=== PATIENT | male | born 1955 | race Caucasian/White ===

== ENCOUNTER → 2016-09-09 | Outpatient (CLI) | payer BC ==
[~2016-09-09] MED LIST: ALLO300T2 PO; ALPR-411 PO; AMOX1TAB43 PO; AZIT250T PO; BUDE0.253 NEB; BUDE1SUS NEB; CMP10 PO; CYM20 PO; DILT120C67 PO; DILT120C68 PO; DULO-24 PO; DXM/4 PO; FRS/40 PO; FURO-85 PO; GABA-113 PO; GABA1CAP4 PO; GEMC1INJ IV; INSDGIPEN SC; INSU100I SQ; IPRASOL4 INH; LCTX PO; LEVO-18 PO; LSX20 PO; LSX40 PO; MCRK20 PO; METO50TA16 PO; METO50TA17 PO; METO5TAB2 PO; MGNO400 PO; MULT-190 PO; NLSI SC; OMG3 PO; ONDA-63 PO; ONDA4TAB46 PO; OPTIRAY 320 IV PRN; OXGN; OXYC1TAB3 PO; PRED10TA PO; PRED20TA PO; RIVA1TAB4 PO; RTXI100 IV; RXC5 PO; UMEC1AER INH; VANC5CAP PO; XRL20 PO; [UNRECOGNIZED DRUG - CODE] IV
--- NOTE | 2016-09-09 12:10 | DIAGNOSTIC IMAGING REPORT ---
CT SCAN OF THE CHEST, ABDOMEN, AND PELVIS WITH IV CONTRAST CLINICAL HISTORY: Lymphoma. COMPARISON STUDY: CT scan of the chest, abdomen, and pelvis dated 06/15/2016. PET/CT dated 12/08/2015. TECHNIQUE: Following the IV administration of 120 of Optiray 320, CT scan of the chest, abdomen, and pelvis was performed from the thoracic inlet to the proximal femora. Images are reviewed in the axial, sagittal, and coronal planes. IV contrast was administered without complication. Automated dose control exposure was utilized. The examination is degraded by large body habitus, and by streak artifact from the body wall abutting the CT gantry. CT DOSE: 4413.52 mGy.cm FINDINGS: CHEST: Thyroid: Atrophic. Thoracic aorta: There is mild atherosclerotic calcification of the thoracic aorta, which is normal in caliber and demonstrates standard 3-vessel arch anatomy. No dissection is seen. Pulmonary vasculature: The main pulmonary arteries appear mildly enlarged suggesting pulmonary artery hypertension. There are no filling defects identified in the central pulmonary vessels to indicate pulmonary was. Note that this examination was not protocoled for evaluation of the pulmonary arteries. Heart: The heart is enlarged and there is a small to moderate pericardial effusion. There is lipomatous hypertrophy of the interatrial septum. The coronary arteries are densely calcified. Lungs and pleural spaces: Emphysema is noted. There is a small volume of loculated fluid in the posterior right lower lobe seen on axial image #201. This measures approximately 6 x 2 cm and there are surrounding scarring/fibrosis. No additional foci of consolidation are identified. Scattered calcified granulomas are observed. Small metallic foreign bodies are present in the left lung. An 8 mm pleural-based nodule in the left lower lobe on image #147 is unchanged, as is a 9 mm nodular density in the right upper lobe seen on image #140 and a 6 mm left upper lobe nodule on image #120. No new pulmonary nodules are identified. The trachea and central airways are clear. Mediastinum: There are scattered subcentimeter mediastinal lymph nodes. These are not pathologically enlarged by size criteria end are similar in appearance to 06/15/2016 examination. Shanna: Mildly enlarged right hilar nodes are identified. The largest is seen on image #129 measures 1.7 cm in short axis. Prominent left axillary nodes measure up to 1.1 cm in short axis as seen on image #144. These are similar to previous. Axillae: There is enlarged right axillary lymph node seen on image #87. This measures 2.3 x 1.8 cm. This is new from 06/15/2016. A presumed seroma in the left axilla on image #77 is unchanged and measures 3.6 x 3.1 cm. No left axillary adenopathy is identified. Bony thorax: The skeletal structures are osteopenic. There are healed left-sided rib fractures. No lytic or blastic lesions are identified. Soft tissues: Numerous metallic foreign bodies are identified in the left chest wall and the left back. ABDOMEN AND PELVIS: Liver: Evaluation of the liver is degraded by streak artifact. The contrast-enhanced liver is enlarged, measuring 19.7 cm in length. The liver demonstrates diffusely diminished attenuation consistent with hepatic steatosis. There is no intrahepatic or ductal dilatation. The hepatic veins and portal veins are patent. Gallbladder: Unremarkable. Spleen: The spleen is enlarged, measuring 16 cm in length. Metallic foreign bodies are noted in the spleen and the surrounding left upper quadrant soft tissues. There are small calcified splenic granulomas. Pancreas: Unremarkable. Adrenal glands: A 2.8 cm indeterminant right adrenal nodule is unchanged. The left adrenal gland is unremarkable. Kidneys: The contrast enhanced kidneys demonstrate mild cortical atrophy and are without hydronephrosis. The kidneys enhance symmetrically. A small metallic foreign body is noted in the left kidney. Abdominal vasculature: The abdominal aorta is normal in course and caliber noting moderate to advanced atherosclerotic calcification. Stomach and bowel: There is a tiny hiatal hernia. The stomach and duodenum otherwise normal in configuration. The small bowel and colon are normal in course and caliber. There is moderate sigmoid diverticulosis without CT evidence of acute diverticulitis. Colonic fecal retention is observed. The appendix is well-visualized and normal. Peritoneum: There is no intraperitoneal free air or abdominal ascites. Lymphadenopathy: Mildly enlarged retroperitoneal lymph nodes are unchanged from previous. An aortocaval node on image #224 measures 1.5 cm in short axis (previously measured 1.4 cm in short axis). An enlarged right pelvic sidewall lymph node on image #411 is unchanged and measures 3.2 x 2.0 cm (previously measured 3.0 x 2.2 cm). A left external iliac chain lymph node image #420 is unchanged, measuring 2.3 x 1.5 cm. There is no upper abdominal or mesenteric lymphadenopathy. An enlarged right inguinal lymph node is new from 06/15/2016 and measures 1.8 x 2.4 cm. Pelvic viscera: The bladder, prostate, and seminal vesicles are normal as visualized. Skeletal structures: The skeletal structures are osteopenic. There is mild lumbosacral spondylosis. No lytic or blastic lesions are seen. IMPRESSION: 1. Progressive right axillary and right inguinal lymphadenopathy as compared to 06/15/2016. 2. Mildly enlarged hilar, retroperitoneal, iliac chain, and right pelvic sidewall lymph nodes are similar in appearance to the 06/15/2016 examination. 3. Splenomegaly. 4. Cardiomegaly noting a small to moderate pericardial effusion. 5. Emphysema. 6. A small volume of loculated fluid with surrounding scarring/fibrosis in the right lower lung is similar to previous. 7. Hepatomegaly and hepatic steatosis. 8. Moderate sigmoid diverticulosis without CT evidence of acute diverticulitis. 9. Numerous small metallic foreign bodies are identified in the left body wall, the left upper quadrant of the abdomen, the left lung, the spleen, and the left kidney. These are similar to previous. 10. Small indeterminant pulmonary and pleural-based nodules measure to 9 mm. These are similar to previous. No new pulmonary nodules are identified. 11. Additional changes as above. Electronically signed by: Philip Gomez M.D. 09/09/2016 12:08 PM Dictated Date/Time: 09/09/2016 11:14 AM
== END | disposition home or self-care (01) ==
LOC: C.CTS 10:36
PROVIDERS: ATTEND Nurse Practitioner Family
DX: C83.30 Diffuse large B-cell lymphoma, unspecified site (principal); R16.1 Splenomegaly, not elsewhere classified; I51.7 Cardiomegaly; J43.9 Emphysema, unspecified; K76.0 Fatty (change of) liver, not elsewhere classified; K57.30 Diverticulosis of large intestine without perforation or abscess without bleeding; R91.8 Other nonspecific abnormal finding of lung field

== ENCOUNTER → 2016-10-01 | Outpatient (CLI) | payer BC ==
[~2016-10-01] MED LIST changes: +MAGN250T8 PO; -OPTIRAY 320 IV PRN; +PROC1TAB5 PO
--- NOTE | 2016-10-01 13:12 | MAMMOGRAPHY REPORT ---
ULTRASOUND OF RIGHT BREAST: 10/01/2016 CLINICAL HISTORY: The patient is scheduled for a surgical biopsy of a right axillary lymph node on . The exam is ordered to evaluate if the lymph node is amenable to needle localization. COMPARISON: CT chest dated 09/09/2016. TECHNIQUE: Real-time ultrasound of the right axilla was performed. FINDINGS: Ultrasound of the axilla demonstrates an abnormally enlarged, morphologically abnormal right axillar y lymph node which measures 2.0 x 1.6 x 1.8 cm. This corresponds with the abnormal lymph node seen on the CT scan. IMPRESSION: Abnormal right axillary lymph node measuring 2.0 cm. As the lymph node is well-seen on ultrasound a nd no large vessel is seen adjacent to the lymph node, the lymph node is likely amenable to ultrasou nd-guided needle localization prior to surgery. The patient was verbally notified of the results. Nhi Caballero M.D. ah/:10/01/2016 11:31:14 Blood Bank Technician: Tsering MILLER(Demarcus)(Rolly), [facility] BI-RADS Code: n/a
== END | disposition home or self-care (01) ==
LOC: C.MAMM 10:33
PROVIDERS: ATTEND Surgery
DX: R59.1 Generalized enlarged lymph nodes (principal)

== ENCOUNTER 2016-10-11 07:35 | Day surgery (SDC) | payer BC ==
[2016-10-05 08:26] VITALS: BMI 51.0
--- NOTE | 2016-10-05 09:06 | PAT Medication Instructions ---
Service Date Oct 05, 2016. Current Home Medication List Alprazolam (Xanax), 0.5-1 MG PO BID PRN for Anxiety Amoxicillin & Pot Clavulanate (Amoxicillin/Clavulanate P), 1 TAB PO BID Azithromycin (Zithromax), 250 MG PO 3XWK Budesonide (Inhalation) (Pulmicort Respules 0.25MG/2ML), 1 VIAL NEB BID Diltiazem Hcl Ext Rel (Tiazac), 240 MG PO QAM Duloxetine HCl (Cymbalta), 1 CAP PO QAM Fish Oil (Fish Oil), 2 CAP PO QAM Furosemide (Lasix), 40 MG PO Q2D Furosemide (Lasix), 60 MG PO Q2D Gabapentin (Neurontin), 300 MG PO QPM Ipratropium-Albuterol (Duoneb), 1 TREATMENT INH QID PRN for COPD Metoprolol Tartrate (Lopressor) (Lopressor), 50 MG PO BID Ocuvite Preservision (Ocuvite Preservision), 1 TAB PO QAM Oxygen (Oxygen), 4 LITER NA CONTINOUS Prednisone Tab (Prednisone), 40 MG PO DAILY PRN for COPD RESCUE KIT Rivaroxaban (Xarelto), 20 MG PO HS Umeclidinium-Vilanterol (Anoro Ellipta 62.5-25 Mcg/INH), 1 PUFF INH QAM Medication Instructions For Your Scheduled Surgery - Continue as directed: Prednisone Tab (Prednisone), 40 MG PO DAILY PRN for COPD RESCUE KIT Amoxicillin & Pot Clavulanate (Amoxicillin/Clavulanate P), 1 TAB PO BID COPD RESCUE KIT Please call if you have a COPD exacerbation prior to the surgery - Hold the following medications per surgeon's instructions: Rivaroxaban (Xarelto), 20 MG PO HS - Stopped already: Fish Oil (Fish Oil), 2 CAP PO QAM - Hold the following medications the morning of surgery: Furosemide (Lasix), 40 MG PO Q2D Furosemide (Lasix), 60 MG PO Q2D Ocuvite Preservision (Ocuvite Preservision), 1 TAB PO QAM - Take the following medications the morning of surgery with a sip of water OTHERWISE NOTHING TO EAT OR DRINK AFTER MIDNIGHT: Albuterol Rescue Inhaler (use if needed; BRING TO HOSPITAL) Alprazolam (Xanax), 0.5-1 MG PO BID PRN for Anxiety Diltiazem Hcl Ext Rel (Tiazac), 240 MG PO QAM Duloxetine HCl (Cymbalta), 1 CAP PO QAM Umeclidinium-Vilanterol (Anoro Ellipta 62.5-25 Mcg/INH), 1 PUFF INH QAM Metoprolol Tartrate (Lopressor) (Lopressor), 50 MG PO BID Budesonide (Inhalation) (Pulmicort Respules 0.25MG/2ML), 1 VIAL NEB BID Ipratropium-Albuterol (Duoneb), 1 TREATMENT INH QID PRN for COPD - Take the following medications as scheduled the night before surgery: Alprazolam (Xanax), 0.5-1 MG PO BID PRN for Anxiety Metoprolol Tartrate (Lopressor) (Lopressor), 50 MG PO BID Gabapentin (Neurontin), 300 MG PO QPM Budesonide (Inhalation) (Pulmicort Respules 0.25MG/2ML), 1 VIAL NEB BID Ipratropium-Albuterol (Duoneb), 1 TREATMENT INH QID PRN for COPD If you have any questions please call us at [phone] or [phone] or [phone]
[~2016-10-11] VITALS: Ht 180.3 cm; Wt 164.0 kg
[~2016-10-11 07:35] MED LIST changes: -ALLO300T2 PO; -AMOX1TAB43 PO; -AZIT250T PO; -BUDE1SUS NEB; +CEFAZOLIN 3000 MG/65 ML D5W IV SCH; -CMP10 PO; -CYM20 PO; -DILT120C67 PO; -DXM/4 PO; -GABA1CAP4 PO; -GEMC1INJ IV; -INSDGIPEN SC; -INSU100I SQ; -IPRASOL4 INH; +LACTATED RINGER'S 1000ML 1,000 ML IV SCH; -LCTX PO; -LEVO-18 PO; -LSX20 PO; -LSX40 PO; -MAGN250T8 PO; -MCRK20 PO; -METO50TA17 PO; -METO5TAB2 PO; -MGNO400 PO; -MULT-190 PO; -NLSI SC; -OMG3 PO; -ONDA-63 PO; -ONDA4TAB46 PO; -OXGN; -OXYC1TAB3 PO; -PRED20TA PO; -PROC1TAB5 PO; -RTXI100 IV; -RXC5 PO; -UMEC1AER INH; -VANC5CAP PO; -XRL20 PO; -[UNRECOGNIZED DRUG - CODE] IV
[2016-10-11] MEDS ORDERED: FLUMAZENIL 0.1 MG/1 ML 10 ML VIAL IV PRN (08:00)
[2016-10-11] MEDS ORDERED: NALOXONE HCL 0.4 MG/1 ML VIAL/CARP IV PRN (08:00)
[2016-10-11] MEDS ORDERED: LABETALOL HCL IV 5 MG/ML 20ML IV PRN (08:00)
[2016-10-11] MEDS ORDERED: PHENYLEPHRINE 100MCG/ML 5ML SYR IV PRN (08:00)
[2016-10-11] MEDS ORDERED: MEPERIDINE HCL 25 MG/ML CARP IV PRN (08:00)
[2016-10-11] MEDS ORDERED: EpHEDrine SULFATE INJ 50 MG/ML AMP IV PRN (08:00)
[2016-10-11] MEDS ORDERED: ATROPINE SULFATE 0.1 MG/ML 5ML SYR IV PRN (08:00)
[2016-10-11] MEDS ORDERED: ONDANSETRON INJ 2 MG/ML 2 ML VIAL IV PRN ×2 (08:00→10:45)
[2016-10-11] MEDS ORDERED: FENTANYL CITRATE INJ 50 MCG/1 ML 2 ML VIAL IV PRN (08:00)
[2016-10-11] MEDS ORDERED: HYDROmorphone INJ 2 MG/ML SYR/VIAL IV PRN (08:00)
[2016-10-11] MEDS ORDERED: MIDAZOLAM HCL 1 MG/ML 2ML VIAL ONE ×2 (08:56)
[2016-10-11 09:11] VITALS: BP 114/58; PULSE 74; TEMP 36.7; O2SAT 98; Ht 180.3 cm; Wt 164.0 kg
[2016-10-11] MEDS ORDERED: FENTANYL CITRATE INJ 50 MCG/1 ML 2 ML VIAL ONE (09:31)
--- NOTE | 2016-10-11 09:34 | History & Physical Bridge Note ---
H&P Re-Evaluation Bridge Note: I have examined the patient, reviewed the History & Physical and in the interval since the performance of the History & Physical I have noted the following changes of clinical significance: No changes noted
[2016-10-11] MEDS ORDERED: SUCCINYLCHOLINE CHLORIDE 20 MG/ML 10 ML VIAL IV ONE (09:35)
[2016-10-11] MEDS ORDERED: LIDOCAINE HCL 2% 2 ML VIAL (20MG/ML) ONE (09:35)
[2016-10-11] MEDS ORDERED: ROCURONIUM BROMIDE 10 MG/ML 5 ML VIAL ONE (09:35)
[2016-10-11] MEDS ORDERED: ONDANSETRON INJ 2 MG/ML 2 ML VIAL ONE (09:35)
[2016-10-11] MEDS ORDERED: ISOSULFAN BLUE 10 MG/ML VIAL 5 ML ONE (09:36)
[2016-10-11] MEDS ORDERED: BUPIVACAINE 0.5 % 5 MG/1 ML MPF 30ML VIAL ONE (09:36)
[2016-10-11] MEDS ORDERED: METHYLENE BLUE 0.5% 10 ML VIAL ONE (09:37)
[2016-10-11] MEDS ORDERED: DEXAMETHASONE SOD INJ 4 MG/ML VIAL ONE (10:18)
--- NOTE | 2016-10-11 10:43 | [facility] Post Operative Brief Note ---
Immediate Operative Summary Operative Date Oct 11, 2016. Pre-Operative Diagnosis Right Lymphadenopathy Post-Operative Diagnosis Right Lymphadenopathy Procedure(s) Performed Right Axillary Lymph Node Biopsy with Needle Localization/ Rt axillary mass Surgeon Dr. Perez Diecast Machine Operator Surgeon(s) Jeremy Ragsdale-sloan Estimated Blood Loss 10 CC Findings 3 cm mass- lymph node Specimens A: Right axillary mass Anesthesia gen Complication(s) None Disposition Recovery Room / PACU
[2016-10-11] MEDS ORDERED: OXYCODONE HCL IR 5 MG TAB (IMMEDIATE RELEASE) PO PRN (10:45)
--- NOTE | 2016-10-11 10:45 | Discharge Instructions ---
Discharge Instructions Date of Service Oct 11, 2016. Visit Reason for Visit: Lymphadenopathy Right Axillary Discharge Discharge Diagnosis / Problem: lymphadenopathy Rt axilla Discharge Goals Goal(s): Decrease discomfort, Improve function, Improve disease control Activity Recommendations Activity Limitations: as noted below Lifting Limitations: no more than 25 pounds (for 2 weeks) Exercise/Sports Limitations: until after follow-up appointment May Resume Sexual Activity: when tolerated Shower/Bathe: tomorrow (may shower- no bath until sutures removed) Driving or Machine Use: resume 1 day after discharge SPECIAL CARE INSTRUCTIONS: * Cover incisions and change daily for comfort/drainage. * May use ibuprofen for pain as tolerated. * Expect some swelling and bruising. Call your doctor if: * Temperature above 101 degrees * Pain not relieved by pain medicine ordered * There is increased drainage or redness from any incision * You have any unanswered questions or concerns [phone]. FOLLOW UP VISIT: If not already scheduled, please call the office for a follow-up visit. for next week- some sutures OFFICE PHONE NUMBER: Dr. Perez Office Anesthesia . Post Anesthesia Instructions: If you have had General Anesthesia or IV Sedation: * Do not drive today. * Resume driving when surgeon permits. * Do not make important decisions or sign legal documents today. * Call surgeon for: 1. Temperature elevations greater than 101 degrees F. 2. Uncontrollable pain. 3. Excessive bleeding. 4. Persistent nausea and vomiting. 5. Medication intolerance (nausea, vomiting or rash). * For nausea and vomiting use only clear liquids such as: tea, soda, bouillon until nausea subsides, then gradually increase diet as tolerated. * If you have any concerns or questions, call your surgeon's office. If physician is unavailable and it is an emergency, call 911 or go to the nearest emergency room. . Diet Recommendations Recommended Home Diet: resume previous diet Procedures Procedures Performed: Right Axillary Lymph Node Biopsy with Needle Localization/ Rt axillary mass Pending Studies Studies pending at discharge: no Medical Emergencies . Who to Call and When: Medical Emergencies: If at any time you feel your situation is an emergency, please call 911 immediately. . Non-Emergent Contact Non-Emergency issues call your: Primary Care Provider, Surgeon . . "Provider Documentation" section prepared by Pop Perez.
[2016-10-11] MEDS ORDERED: OXYC1TAB3 PO (10:47)
--- NOTE | 2016-10-11 11:09 | Anesthesiology Progress Note ---
Anesthesia Post Op Note Date & Time Oct 11, 2016 at 11:08 Vital Signs Pain Intensity: 0 Vital Signs Past 12 Hours Date Time Temp Pulse Resp B/P Pulse Ox O2 Delivery O2 Flow Rate FiO2 10/11/16 10:55 73 20 116/67 94 Mask 10 10/11/16 10:46 36.7 80 20 113/75 95 Mask 10 10/11/16 09:11 36.7 74 22 114/58 98 Nasal Cannula 3.5 Notes Mental Status: alert / awake / arousable, participated in evaluation Pt Amnestic to Procedure: Yes Nausea / Vomiting: adequately controlled Pain: adequately controlled Airway Patency, RR, SpO2: stable & adequate BP & HR: stable & adequate Hydration State: stable & adequate Anesthetic Complications: no major complications apparent The patient did well. He is awake and at his baseline.
[2016-10-11 11:35] VITALS: BP 120/60; PULSE 73; TEMP 36.7; O2SAT 95
[2016-10-11 12:20] VITALS: BP_SYST 118; BP_SYST 130; BP_DIAS 63; BP_DIAS 67; PULSE 75; TEMP 36.8; O2SAT 96
[2016-10-11 12:27] VITALS: BP 118/63; PULSE 75; TEMP 36.8; O2SAT 96
--- NOTE | 2016-10-11 12:46 | MAMMOGRAPHY REPORT ---
NEEDLE LOCALIZATION RIGHT BREAST: 10/11/2016 CLINICAL HISTORY: Abnormal enlarged right axillary lymph node. Patient presents for preoperative lo calization. COMPARISON: Comparison is made to exam dated: 10/01/2016 ultrasound - [facility] PATIENT CONSENT: The risks of the procedure were explained to the patient and informed consent was o btained. The patient denied allergy to lidocaine and also denied eating or drinking anything this m orning that would preclude anesthesia. PROCEDURE DESCRIPTION: Repeat targeted ultrasound was performed in the right axilla to assess for th e enlarged, morphologically abnormal lymph node as seen on prior ultrasound dated 10/01/2016. This is again identified and is amenable to preoperative localization. The skin of the right axilla was cleansed with Betadine. 1% buffered lidocaine without epinephrine was administered as local anesthe rina. A 5 cm Goldsmith II needle and wire combination was inserted into the lymph node and the wire wa s locked in place. The hub of the wire is located at the posterior border of the lymph node and the tip of the needle is within and just proximal to the anterior border of the lymph node. The needle length and were discussed with the operating surgeon prior to surgery. The patient tolerated proce dure well and there was no immediate consultation. He was sent to the operating room in satisfactor y condition. IMPRESSION: NEEDLE LOCALIZATION Status post preoperative needle and wire localization for a morphologically abnormal lymph node in t he right axilla. A specimen radiograph was not obtained. The patient will receive notification of the results from his referring physician. Chitra Minor M.D. ay/:10/11/2016 12:28:27 Pulp And Paper Tester: Michelle GORE)(Rolly), [facility]
--- NOTE | 2016-10-11 21:46 | OPERATIVE REPORT ---
DATE OF OPERATION: 10/11/2016 NAME OF OPERATION: Excision of right axillary mass using needle localization. PREOPERATIVE DIAGNOSIS: Right axillary lymphadenopathy. POSTOPERATIVE DIAGNOSIS: Same. STAFF SURGEON: Dr. Perez. STOCK PREPARER: TENZIN Weston. ANESTHESIA: General. PROCEDURE: The patient was brought in the operating room and placed on the operating table in supine position. He had had a needle placed in the at the breast center in the right axilla. He underwent a general anesthetic and then using 0.5% plain Marcaine, skin and subcutaneous tissue were anesthetized around the needle. Incision was made around the needle carrying dissection down deeply into the axilla, identifying what appeared to be an axillary mass approximately 3 cm in diameter which was suspected to be a lymph node. This was excised from surrounding tissue with the tissue around the lymph node and ligated using 2-0 chromic catgut suture and 2-0 silk suture. At this point, the deep tissue was reapproximated using 2-0 plain catgut suture then the skin reapproximated using 4-0 nylon suture. The mass was sent fresh to the lab. I attest to the content of the Intraoperative Record and any orders documented therein. Any exceptio ns are noted below.
--- NOTE | 2016-10-12 09:21 | MAMMOGRAPHY REPORT ---
SPECIMEN: 10/11/2016 CLINICAL HISTORY: Abnormal right axillary lymph node. Patient presents for preoperative needle and wire localization and surgical excision. Please refer to the report from ultrasound guided needle localization with imaging of the right axil la performed at the same time for full detail. IMPRESSION: SPECIMEN Please refer to the report from ultrasound guided needle localization with imaging of the right axil la performed at the same time for full detail. Chitra Minor M.D. ay/:10/11/2016 08:55:43 Survey Research Manager: Michelle GORE)(M), [facility]
[2016-12-06] MEDS ORDERED: AZIT250T PO (04:15)
[2016-12-06] MEDS ORDERED: OXGN (07:32)
[2016-12-06] MEDS ORDERED: MULT-190 PO (08:26)
[2016-12-06] MEDS ORDERED: UMEC1AER INH (08:26)
[2016-12-06] MEDS ORDERED: OMG3 PO (08:26)
[2016-12-06] MEDS ORDERED: IPRASOL4 INH (13:01)
[2016-12-06] MEDS ORDERED: AMOX1TAB43 PO (14:04)
[2017-04-08] MEDS ORDERED: INSDGIPEN SC (16:03)
[2017-04-08] MEDS ORDERED: MAGN250T8 PO (16:03)
[2017-04-08] MEDS ORDERED: PROC1TAB5 PO (16:03)
== END 2016-10-11 12:34 | disposition home or self-care (01) ==
LOC: C.ACU 07:35
PROVIDERS: ATTEND Surgery
DX: C83.34 Diffuse large B-cell lymphoma, lymph nodes of axilla and upper limb (principal); I48.92 Unspecified atrial flutter; C85.10 Unspecified B-cell lymphoma, unspecified site; J44.9 Chronic obstructive pulmonary disease, unspecified; I95.1 Orthostatic hypotension; G47.30 Sleep apnea, unspecified; F17.200 Nicotine dependence, unspecified, uncomplicated; Z79.899 Other long term (current) drug therapy; Z86.718 Personal history of other venous thrombosis and embolism

== ENCOUNTER 2016-10-28 05:10 | Day surgery (SDC) | payer BC ==
[2016-10-26 12:40] VITALS: BMI 51.0
[~2016-10-28] VITALS: Ht 180.3 cm; Wt 165.7 kg
[~2016-10-28 05:10] MED LIST changes: -CEFAZOLIN 3000 MG/65 ML D5W IV SCH; -LACTATED RINGER'S 1000ML 1,000 ML IV SCH
[2016-10-28 05:48] VITALS: BP 138/71; PULSE 65; TEMP 37; O2SAT 99; Ht 180.3 cm; Wt 165.7 kg
[2016-10-28] MEDS ORDERED: LACTATED RINGER'S 1000ML 1,000 ML IV SCH (06:00)
[2016-10-28] MEDS ORDERED: FENTANYL CITRATE INJ 50 MCG/1 ML 2 ML VIAL ONE (06:58)
[2016-10-28] MEDS ORDERED: MIDAZOLAM HCL 1 MG/ML 2ML VIAL ONE (06:58)
[2016-10-28] MEDS ORDERED: LACTATED RINGER'S 1000ML 1,000 ML IV PRN (07:20)
[2016-10-28] MEDS ORDERED: FENTANYL CITRATE INJ 50 MCG/1 ML 2 ML VIAL IV PRN (07:30)
[2016-10-28] MEDS ORDERED: ONDANSETRON INJ 2 MG/ML 2 ML VIAL IV PRN (07:30)
[2016-10-28] MEDS ORDERED: KETAMINE HCL INJ 50 MG/ML 10 ML VIAL ONE (07:50)
[2016-10-28] MEDS ORDERED: LIDOCAINE 1% (PF) INJ ONE (08:23)
--- NOTE | 2016-10-28 08:40 | Anesthesiology Progress Note ---
Anesthesia Post Op Note Date & Time Oct 28, 2016 at 08:40 Vital Signs Pain Intensity: 0 Vital Signs Past 12 Hours Date Time Temp Pulse Resp B/P Pulse Ox O2 Delivery O2 Flow Rate FiO2 10/28/16 08:34 63 12 10/28/16 08:34 58 12 92 10/28/16 08:33 36.7 56 16 109/65 94 Nasal Cannula 4 10/28/16 08:31 109/65 10/28/16 08:29 56 17 95 10/28/16 08:29 57 17 10/28/16 08:28 58 18 10/28/16 08:28 58 18 96 10/28/16 08:26 90/62 10/28/16 08:23 59 17 10/28/16 08:23 60 17 94 10/28/16 08:21 109/63 10/28/16 08:18 56 18 10/28/16 08:18 56 18 94 10/28/16 08:16 100/58 10/28/16 08:13 56 97/60 94 10/28/16 08:13 36.9 69 16 97/60 95 Nasal Cannula 4 10/28/16 08:13 56 10/28/16 05:48 37 65 20 138/71 99 Nasal Cannula 3.5 Notes Mental Status: alert / awake / arousable, participated in evaluation Pt Amnestic to Procedure: No (recall as expected) Nausea / Vomiting: adequately controlled Pain: adequately controlled Airway Patency, RR, SpO2: stable & adequate BP & HR: stable & adequate Hydration State: stable & adequate Anesthetic Complications: no major complications apparent Pt doing very well.
--- NOTE | 2016-10-28 08:50 | [facility] Operative Report ---
Operative Report Operative Date Oct 28, 2016. Pre-Operative Diagnosis Large B Cell Lymphoma Post-Operative Diagnosis recurrent B-cell lymphoma Procedure(s) Performed bone marrow biopsy and aspirate Surgeon Dr. Amaro Seed Analysis Laboratory Assistant Surgeon(s) Brook Graves Estimated Blood Loss 0ML Findings Marrow pending Specimens All Specimens Handled by Lab Complication(s) None Disposition Recovery Room / PACU Indications Staging for lymphoma Description of Procedure bone marrow biopsy and aspirate Indication Technique Nursing time out procedure was performed per protocol written informed consent document was obtained.Pt was given Dilaudid 1mg and ativan 1mg IV prior to procedure. 1% lidocaine without epinephrine was used for local anesthesia without complications. The patient was prepped and draped in usual sterile fashion placed in the right lateral decubitus position the left posterior superior iliac spine was located without difficulty. 1% lidocaine without epinephrine was used for local anesthesia without complications. Using a standard 11-gauge bone marrow biopsy needle the left posterior-superior iliac spine was entered without difficulty. Excellent spicules were obtained the aspiration sent for standard histopathology , flow cytometry, cytogenetics and molecular studies. The left posterior- superior iliac spine was re-entered with a standard 11-gauge Jamshedi and a bone biopsy or core was obtained. Patient tolerated procedure well. ASSESSMENT AND PLAN Follow up in 2 weeks. I attest to the content of the Intraoperative Record and any orders documented therein. Any exceptions are noted below.
[2016-10-28 09:05] VITALS: BP 107/66; PULSE 60; TEMP 36.6; O2SAT 93
[2016-10-28 09:35] VITALS: BP 98/56; PULSE 63; O2SAT 95
[2016-10-28 10:05] VITALS: BP 104/57; PULSE 59; TEMP 36.6; O2SAT 92
--- NOTE | 2016-10-28 10:05 | Discharge Instructions ---
Discharge Instructions Date of Service Oct 28, 2016. Admission Reason for Admission: Non-Hodgkins Lymphoma Discharge Discharge Diagnosis / Problem: lymphoma staging Discharge Goals Goal(s): Diagnostic testing Activity Recommendations Activity Limitations: resume your previous activity Driving or Machine Use: no limitations none . Instructions / Follow-Up Instructions / Follow-Up follow up in clinic as scheduled Current Hospital Diet Patient's current hospital diet: Discharge Diet Recommended Diet: Regular Diet Fluid Restriction: None Procedures Procedures Performed: Bone Marrow Biopsy and Aspirate Pending Studies Studies pending at discharge: no Medical Emergencies . Who to Call and When: Medical Emergencies: If at any time you feel your situation is an emergency, please call 911 immediately. . Non-Emergent Contact Non-Emergency issues call your: Primary Care Provider Call Non-Emergent contact if: you have a fever, temperature is above 101.5 . "Provider Documentation" section prepared by Frederick Amaro. . VTE Core Measure Inpt VTE Proph given/why not?: Treatment not indicated
[2016-12-06] MEDS ORDERED: AZIT250T PO ×2 (04:15)
[2016-12-06] MEDS ORDERED: OXGN ×2 (07:32)
[2016-12-06] MEDS ORDERED: UMEC1AER INH ×2 (08:26)
[2016-12-06] MEDS ORDERED: MULT-190 PO ×2 (08:26)
[2016-12-06] MEDS ORDERED: OMG3 PO ×2 (08:26)
[2016-12-06] MEDS ORDERED: IPRASOL4 INH ×2 (13:01)
[2016-12-06] MEDS ORDERED: AMOX1TAB43 PO ×2 (14:04)
[2017-04-08] MEDS ORDERED: PROC1TAB5 PO (16:03)
[2017-04-08] MEDS ORDERED: MAGN250T8 PO (16:03)
[2017-04-08] MEDS ORDERED: INSDGIPEN SC (16:03)
== END 2016-10-28 10:20 | disposition home or self-care (01) ==
LOC: C.ACU 05:10
PROVIDERS: ATTEND Internal Medicine Hematology & Oncology
DX: C83.30 Diffuse large B-cell lymphoma, unspecified site (principal); J44.9 Chronic obstructive pulmonary disease, unspecified; I50.9 Heart failure, unspecified; G47.33 Obstructive sleep apnea (adult) (pediatric); I10 Essential (primary) hypertension; E11.9 Type 2 diabetes mellitus without complications; F41.9 Anxiety disorder, unspecified; M19.90 Unspecified osteoarthritis, unspecified site; Z98.52 Vasectomy status; Z98.890 Other specified postprocedural states; E66.01 Morbid (severe) obesity due to excess calories; Z68.43 Body mass index [BMI] 50.0-59.9, adult; Z86.718 Personal history of other venous thrombosis and embolism; Z86.711 Personal history of pulmonary embolism

== ENCOUNTER → 2016-11-03 | Outpatient (CLI) | payer BC ==
[~2016-11-03] MED LIST changes: +AMOX1TAB43 PO; +AZIT250T PO; +BUDE1SUS NEB; +CMP10 PO; +CYM20 PO; +DILT120C67 PO; +DXM/4 PO; +GABA1CAP4 PO; +GEMC1INJ IV; +INSDGIPEN SC; +INSU100I SQ; +IPRASOL4 INH; +LCTX PO; +LEVO-18 PO; +LSX20 PO; +LSX40 PO; +MAGN250T8 PO; +MCRK20 PO; +METO50TA17 PO; +METO5TAB2 PO; +MGNO400 PO; +MULT-190 PO; +OMG3 PO; +ONDA-63 PO; +ONDA4TAB46 PO; +OXGN; +PRED20TA PO; +PROC1TAB5 PO; +RTXI100 IV; +UMEC1AER INH; +VANC5CAP PO; +XRL20 PO; +[UNRECOGNIZED DRUG - CODE] IV
--- NOTE | 2016-11-03 11:28 | DIAGNOSTIC IMAGING REPORT ---
PET/CT CLINICAL HISTORY: Lymphoma. TECHNIQUE: A PET/CT was performed from the skull base through the upper thighs following intravenous injection of 15.69 mCi of F 18 FDG IV. The injection was performed at 8:09 AM on November 03, 2016 and imaging began at 9:15 AM on November 03, 2016. Unenhanced CT was performed for attenuation correction purposes and anatomic localization. COMPARISON STUDY: PET/CT December 08, [address] of the chest, abdomen and pelvis September 09, 2016. FINDINGS: Head and neck: No suspicious FDG uptake is identified within the neck. There is no cervical lymphadenopathy. Chest: A right sided [id number] is in place. A 3.6 cm water attenuation left axillary abnormality is unchanged since prior exams. This is no FDG uptake and suggests a seroma. The enlarged right axillary lymph node shown on CT of September 09, 2016 has likely been resected. Prominent right hilar lymph nodes are noted. These have no significant abnormal FDG uptake. There is no suspicious FDG uptake within the chest. Right lower lobe opacity suggest atelectasis. A 6 mm left upper lobe nodule shown image 66 is unchanged since prior exams. This is likely benign. A 9 mm subpleural left lower lobe nodule shown image 79 is new since PET/CT of December 08, 2015. Groundglass opacities within lungs favor atelectasis. Abdomen and Pelvis: Small para-aortic lymph nodes are either stable or improved since PET/CT of December 08, 2015. These have no significant FDG uptake. Note is made of a 3 x 2 cm right external iliac lymph node which is increased in size since PET/CT of December 08, 2015 when it measured 2.4 x 1.3 cm. This node has moderate FDG uptake with an SUV max of 5. A left external iliac node shown on image 213 has mildly increased in size. It now measures 2.3 x 1.2 cm and has an SUV max of 4. A 2.4 x 1.9 cm right inguinal lymph node has significantly increased in size since PET/CT of December 08, 2015 and now has abnormal FDG uptake with an SUV max of 8. This exam is compromised by body wall contacting the gantry. Numerous metallic radiodensities are unchanged. Musculoskeletal: No suspicious skeletal uptake is identified. IMPRESSION: 1. Interval development of right inguinal and bilateral external iliac FDG avid lymphadenopathy consistent with progression of lymphoma since PET/CT of December 08, 2015. 2. Interval resection of the right axillary lymph node shown on CT of September 09, 2016. 3. 9 mm subpleural left lower lobe nodule which is indeterminate and can be assessed on subsequent exams. Electronically signed by: Ponce Gupta M.D. 11/03/2016 11:27 AM Dictated Date/Time: 11/03/2016 11:03 AM
== END | disposition home or self-care (01) ==
LOC: C.PET 07:49
PROVIDERS: ATTEND Internal Medicine Hematology & Oncology
DX: C83.30 Diffuse large B-cell lymphoma, unspecified site (principal)

== ENCOUNTER → 2016-11-10 | Outpatient (CLI) | payer BC ==
[~2016-11-10] MED LIST changes: +PERFLUTREN LIPID MICROSPHERE (DEFINITY) IV ONE
--- NOTE | 2016-11-10 18:04 | ECHOCARDIOGRAM REPORT ---
*NOTICE TO RECEIVING CONSTITUTION PARTY AGENCY This information is strictly Confidential and protected under [place] law. [place] law prohibits you from making any further disclosure of this information unless further disclosure is expressly permitted by the written consent of the person to whom it pertains or is authorized by law. A general authorization for the release of medical or other information is not sufficient for this purpose. Hospital accepts no responsibility if the information is made available to any other person, INCLUDING THE PATIENT. Interpretation Summary * Name: LE RODRÍGUEZ Study Date: 11/10/2016 01:05 PM * Patient Location: [facility] HR: 58 * : 1955 (M/d/yyyy) Gender: Male Height: 71 in * Age: 61 yrs Ethnicity: CA Weight: 361 lb * Ordering Physician: Brook Graves * Referring Physician: Brook Graves . 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 Normal LV size. Mild concentric LVH. * 2. Normal LV systolic function. LVEF 60-65%. No regional wall motion abnormalities. * 3. RV not well visualized but size and function appears normal. * 4. Aortic valve sclerosis without stenosis. * 5. Compared with prior study on 07/16/2015: No significant changes. Procedure Details * A complete two-dimensional transthoracic echocardiogram was performed (2D, M-mode, Doppler and color flow Doppler). * A contrast injection of Definity was performed to improve assessment of LV function. * Contrast was injected into an intravenous site in the right arm. * One vial of Definity ultrasound contrast was diluted in normal saline to a total volume of 10 ml. A total of '4' ml of solution was administered during imaging. * Lot # [id number] of Definity utilized for procedure. * Expiration date OCT 19. * The attending nurse who injected the contrast agent was Ruby Blackmon RN. Left Ventricle * The left ventricle is grossly normal size. * There is mild concentric left ventricular hypertrophy. * Left ventricular systolic function is normal. * Ejection Fraction = 60-65%. * No regional wall motion abnormalities noted. Right Ventricle * The right ventricle is grossly normal size. * The right ventricle is not well visualized. * The right ventricular systolic function is normal as assessed by tricuspid annular plane systolic excursion (TAPSE) (normal >1.5 cm). Atria * The left atrial size is normal. * The right atrium is mildly dilated. * No ASD detected; PFO is not assessed. Mitral Valve * The mitral valve is grossly normal. * There is no mitral valve stenosis. * Significant mitral regurgitation is absent. Tricuspid Valve * The tricuspid valve is not well visualized, but is grossly normal. * There is no tricuspid stenosis. * Significant tricuspid regurgitation is absent. Aortic Valve * Aortic valve sclerosis mild, without significant aortic valvular stenosis. * The aortic valve is not well visualized. * No hemodynamically significant valvular aortic stenosis. * There is no significant aortic regurgitation. Pulmonic Valve * The pulmonary valve is inadequately visualized, but the Doppler data is adequate for interpretation. * There is no pulmonic valvular stenosis. * There is no pulmonic valvular regurgitation. Great Vessels * Borderline dilated ascending aorta. Pericardium/Pleural * There is no pericardial effusion. MMode 2D Measurements and Calculations IVSd 1.5 cm LVIDd 4.9 cm LVIDs 3.0 cm LVPWd 1.2 cm IVS/LVPW 1.2 FS 37.6 % EDV(Teich) 110.9 ml ESV(Teich) 36.0 ml EF(Teich) 67.5 % EDV(cubed) 115.0 ml ESV(cubed) 28.0 ml EF(cubed) 75.7 % LV mass(C)d 269.6 grams LV mass(C)dI 99.4 grams/m\S\2 CO(Teich) 4.1 l/min CI(Teich) 1.5 l/min/m\S\2 SV(Teich) 74.8 ml SI(Teich) 27.6 ml/m\S\2 CO(cubed) 4.8 l/min CI(cubed) 1.8 l/min/m\S\2 SV(cubed) 87.1 ml SI(cubed) 32.1 ml/m\S\2 Ao root diam 4.0 cm Ao root area 12.7 cm\S\2 ACS 1.9 cm LA dimension 2.1 cm LA/Ao 0.52 LVAd ap4 37.7 cm\S\2 LVLd ap4 8.3 cm EDV(MOD-sp4) 139.0 ml LVAs ap4 21.4 cm\S\2 LVLs ap4 7.8 cm ESV(MOD-sp4) 48.0 ml EF(MOD-sp4) 65.5 % LVAd ap2 29.2 cm\S\2 LVLd ap2 8.0 cm EDV(MOD-sp2) 95.0 ml LVAs ap2 18.8 cm\S\2 LVLs ap2 7.5 cm ESV(MOD-sp2) 43.0 ml EF(MOD-sp2) 54.7 % CO(MOD-sp4) 5.0 l/min CI(MOD-sp4) 1.8 l/min/m\S\2 SV(MOD-sp4) 91.0 ml SI(MOD-sp4) 33.6 ml/m\S\2 CO(MOD-sp2) 2.9 l/min CI(MOD-sp2) 1.1 l/min/m\S\2 SV(MOD-sp2) 52.0 ml SI(MOD-sp2) 19.2 ml/m\S\2 Doppler Measurements and Calculations MV E max jose 78.5 cm/sec MV A max jose 79.5 cm/sec MV E/A 0.99 MV dec time 0.32 sec Ao V2 max 158.0 cm/sec Ao max PG 10.0 mmHg Ao max PG (full) 4.9 mmHg LV V1 max PG 5.1 mmHg LV V1 max 113.0 cm/sec PA V2 max 137.1 cm/sec PA max PG 7.5 mmHg PA acc slope 621.3 cm/sec\S\2 PA acc time 0.13 sec TR max jose 108.6 cm/sec PA pr(Accel) 20.4 mmHg
== END | disposition home or self-care (01) ==
LOC: C.CPL 12:22
PROVIDERS: ATTEND Nurse Practitioner Family
DX: C83.30 Diffuse large B-cell lymphoma, unspecified site (principal); I51.7 Cardiomegaly; I35.8 Other nonrheumatic aortic valve disorders

== ENCOUNTER 2016-12-06 19:30 | Inpatient (IN) | payer BC, OTHER ==
[~2016-12-06] VITALS: Ht 182.9 cm; Wt 152.6 kg
[~2016-12-06 19:30] MED LIST changes: -BUDE1SUS NEB; -CMP10 PO; -CYM20 PO; -DILT120C67 PO; -DXM/4 PO; -GABA1CAP4 PO; -GEMC1INJ IV; -INSDGIPEN SC; -INSU100I SQ; -LCTX PO; -LEVO-18 PO; -LSX20 PO; -LSX40 PO; -MAGN250T8 PO; -MCRK20 PO; -METO50TA17 PO; -METO5TAB2 PO; -MGNO400 PO; -ONDA-63 PO; -ONDA4TAB46 PO; -PERFLUTREN LIPID MICROSPHERE (DEFINITY) IV ONE; -PRED20TA PO; -PROC1TAB5 PO; -RTXI100 IV; -VANC5CAP PO; -XRL20 PO; -[UNRECOGNIZED DRUG - CODE] IV
[2016-12-06] MEDS ORDERED: SODIUM CHLORIDE 0.9% 1000ML 1,000 ML IV STA (19:46)
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
[2016-12-06 20:28] LABS: COMPLETE YES; EOS % 0.4 %; HEMATOCRIT 42.7 % (42-52); IG% 0.3 %; LYMPH % 5.9 %; LYMPH ABS # 0.44 K/uL (1.2-3.4); MEAN CELL VOLUME 82.4 fL (80-100); MEAN CORPUSCULAR HEMOGLOBIN 29.3 pg (25-34); MEAN CORPUSCULAR HGB CONC 35.6 g/dl (32-36); MEAN PLATELET VOLUME 8.7 fL (7.4-10.4); MONO % 0.1 %; NEUT % 93.3 %; PLATELET COUNT 215 K/uL (130-400); RED BLOOD COUNT 5.18 M/uL (4.7-6.1); WHITE BLOOD COUNT 7.51 K/uL (4.8-10.8)
[2016-12-06 20:34] LABS: INR 1.1 (0.9-1.1); PROTHROMBIN TIME (PATIENT) 11.4 SECONDS (9.0-12.0)
[2016-12-06 21:00] LABS: ALKALINE PHOSPHATASE 74 U/L (45-117); ALT/SGPT 127 U/L (12-78); AST/SGOT 51 U/L (15-37); BLOOD UREA NITROGEN 48 mg/dl (7-18); BUN/CREATININE RATIO 28.3 (10-20); CALCIUM 8.7 mg/dl (8.5-10.1); CARBON DIOXIDE 30 mmol/L (21-32); CHLORIDE 85 mmol/L (98-107); CKMB/CK RATIO 2.1 (0-3.0); GLUCOSE 340 mg/dl (70-99); MAGNESIUM 2.6 mg/dl (1.8-2.4); POTASSIUM 3.2 mmol/L (3.5-5.1); SODIUM 131 mmol/L (136-145)
--- NOTE | 2016-12-06 21:10 | DIAGNOSTIC IMAGING REPORT ---
HEAD CT NONCONTRAST CT DOSE: 537.48 mGy.cm HISTORY: Mental status change syncope TECHNIQUE: Multiaxial CT images of the head were performed without the use of intravenous contrast. Comparison: 10/31/2015 Findings: The paranasal sinuses and mastoid air cells are clear. The calvarium and skull base are intact. The ventricles and sulci are within normal limits. There is no mass, hematoma, midline shift, or acute infarct. Impression: No acute intracranial abnormality. Electronically signed by: Fadi Ng M.D. 12/06/2016 9:09 PM Dictated Date/Time: 12/06/2016 9:07 PM
[2016-12-06 21:12] LABS: BETA-HYDROXYBUTYRATE 4.48 mg/dL (0.2-2.81)
[2016-12-06] MEDS ORDERED: PRED20TA PO (21:12)
[2016-12-06] MEDS ORDERED: CYM20 PO (21:12)
[2016-12-06] MEDS ORDERED: ONDA-63 PO (21:12)
[2016-12-06] MEDS ORDERED: XRL20 PO (21:12)
[2016-12-06] MEDS ORDERED: LSX40 PO (21:12)
[2016-12-06] MEDS ORDERED: METO5TAB2 PO (21:12)
[2016-12-06] MEDS ORDERED: DXM/4 PO (21:12)
[2016-12-06] MEDS ORDERED: DILT120C67 PO (21:12)
[2016-12-06] MEDS ORDERED: GABA1CAP4 PO (21:12)
[2016-12-06] MEDS ORDERED: LSX20 PO (21:12)
[2016-12-06] MEDS ORDERED: METO50TA17 PO (21:12)
--- NOTE | 2016-12-06 21:16 | DIAGNOSTIC IMAGING REPORT ---
ABDOMEN AND PELVIS CT WITHOUT CONTRAST CT DOSE: 4739.95 mGy.cm HISTORY: Pain left abd pain, lymphoma TECHNIQUE: Multiaxial CT images of the abdomen and pelvis were performed without the use of intravenous and oral contrast according to the standard department stone protocol. COMPARISON STUDY: 09/09/2016 FINDINGS: Persistent pleural reactive change right to lesser extent left base. Morphology of liver spleen and pancreas appear unchanged from the prior exam. Several nonobstructing renal calcifications. Bowel pattern within the abdomen and pelvis considered nonobstructive. Findings of chronic sigmoid diverticulosis. Bladder is midline. There are no contained calcifications. The appendix is normal. Several small] described is nonprogressive and stable. No free fluid within the abdomen or pelvic region. Several inguinal nodes also stable. IMPRESSION: 1. No acute process of the abdomen or pelvis. 2. Several small scattered nodes throughout the abdomen and pelvic region are stable. 3. Nonobstructive bowel pattern with a normal appendix. 4. Mild chronic sigmoid diverticulosis. Electronically signed by: Fadi Ng M.D. 12/06/2016 9:15 PM Dictated Date/Time: 12/06/2016 9:09 PM
[2016-12-06] MEDS ORDERED: BUDE1SUS NEB (21:17)
[2016-12-06] MEDS ORDERED: LEVAQUIN 750MG / 150ML D5W IV STA (22:07)
[2016-12-07] VITALS (9 sets, daily range): BP systolic 102–175; BP diastolic 57–124; PULSE 70–96; TEMP 36.4–37; O2SAT 95–98; BMI 46.1
[2016-12-07] MEDS ORDERED: ONDANSETRON INJ 2 MG/ML 2 ML VIAL IV STA (00:25)
[2016-12-07] MEDS ORDERED: ONDANSETRON INJ 2 MG/ML 2 ML VIAL ONE (00:30)
[2016-12-07] MEDS ORDERED: DEXAMETHASONE 4 MG TAB PO SCH (01:00)
[2016-12-07] MEDS ORDERED: POLYETHYLENE (MIRALAX) 17 GM PACK PO PRN (01:00)
[2016-12-07] MEDS ORDERED: MAGNESIUM HYDROXIDE SUSP 30 ML UDC PO PRN (01:00)
[2016-12-07] MEDS ORDERED: ONDANSETRON INJ 2 MG/ML 2 ML VIAL IV PRN ×2 (01:00→13:00)
[2016-12-07] MEDS ORDERED: OXYGEN SCH (01:00)
[2016-12-07] MEDS ORDERED: ALBUT/IPRATROP 3MG/0.5MG NEB 3 ML VIAL INH PRN (01:00)
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
[2016-12-07] MEDS ORDERED: GLUCAGON FOR INJ 1 MG VIAL SQ PRN (03:00)
[2016-12-07] MEDS ORDERED: GLUCOSE 40% GEL 15 GM TUBE PO PRN (03:00)
[2016-12-07] MEDS ORDERED: DEXTROSE 50% 50 ML SYR IV PRN (03:00)
[2016-12-07] MEDS ORDERED: GLUCOSE 10 TABS/TUBE PO PRN (03:00)
[2016-12-07] MEDS: NSS + 20MEQ KCL 1000ML 1,000 ML IV SCH ×2 (03:20→15:32)
[2016-12-07] MEDS ORDERED: MoRPHine SULFATE 2 MG/ML CARP IV PRN (03:45)
[2016-12-07] MEDS: BUDESONIDE 0.5 MG/2 ML VIAL (PULMICORT) INH SCH ×2 (07:35→19:23)
[2016-12-07] MEDS: DILTIAZEM HCL 120 MG EXT REL CAP PO SCH (08:03)
[2016-12-07] MEDS: CEROVITE ADV FORMULA TAB PO SCH (08:03)
[2016-12-07] MEDS: METOPROLOL TARTRATE 50 MG TAB PO SCH ×2 (08:03→20:38)
[2016-12-07] MEDS: RIVAROXABAN 20 MG TAB PO SCH (08:03)
[2016-12-07] MEDS: FUROSEMIDE 40 MG TAB PO SCH (08:04)
[2016-12-07] MEDS: DULOXETINE HCL 20 MG CAP PO SCH (08:04)
[2016-12-07] MEDS: INSULIN ASPART 100 UNITS/ML 3 ML PEN SC SCH ×4 (08:08→20:41)
[2016-12-07 08:12] LABS: BUN/CREATININE RATIO 31.4 (10-20); CREATININE 1.5 mg/dl (0.60-1.40)
[2016-12-07 08:15] LABS: ALB/GLOB RATIO 1.1 (0.9-2)
[2016-12-07 08:45] LABS: CALCIUM 8.6 mg/dl (8.5-10.1)
[2016-12-07] MEDS ORDERED: FUROSEMIDE 20 MG TAB PO SCH (09:00)
[2016-12-07] MEDS ORDERED: POTASSIUM CHLR 20 MEQ / WTR 20 MEQ in PREMIXED WATER 100 ML IV SCH (10:30)
--- NOTE | 2016-12-07 10:37 | Hospitalist Progress Note ---
Hospitalist Progress Note Date of Service Dec 07, 2016. (Maite Bhagat PA-C) Subjective Pt evaluation today including: conversation w/ patient, conversation w/ family , physical exam, chart review, lab review, review of studies Voiding: no voiding problems The patient was seen and examined this morning. Pts daughter, and son in law are present at bedside. Pt report his stomach pain is slightly improved compared to yesterday, he is still nauseous and having dry heaves, last emesis was last evening. In regards to possible causes of his abdomina pain- He was started on metformin 500 mg QAM 3 weeks ago, and dosage was increased to 500 BID 2 weeks ago. He is having loose bowels every other day with it. His nausea started , which was 1 day after receiving first round of antineoplastic therapy with cisplatin, rituxin and gemcitabine for B cell lymphoma recurrence. He notes feeling slightly lightheaded but that this was not like previous episodes of hypotension when coreg dose was cut in half in July. he denies fever, chills or sweats, but feels warm now. He chronically wears O2 3-4 L for COPD, he denies sob, cp, flutter, palpitation, lightheadedness or dizziness. Additional Comments: 6 point ROS was reviewed and otherwise negative unless listed in HPI. (Maite Bhagat PA-C) Objective Vital Signs Date Time Temp Pulse Resp B/P (MAP) Pulse Ox O2 Delivery O2 Flow Rate FiO2 12/07/16 08:00 Nasal Cannula 4.0 12/07/16 07:18 36.7 82 20 115/80 (92) 95 12/07/16 04:00 36.9 82 16 155/85 (108) 96 Nasal Cannula 4.0 12/07/16 04:00 Nasal Cannula 4.0 12/07/16 02:06 36.4 85 20 141/85 96 Nasal Cannula 4.0 12/07/16 01:28 88 22 118/73 94 Nasal Cannula 4.0 12/07/16 00:00 84 22 119/76 97 Nasal Cannula 4.0 12/06/16 22:50 134/84 12/06/16 22:40 76 16 97 12/06/16 22:35 76 20 97 12/06/16 22:05 72 21 97 12/06/16 21:35 74 24 96 12/06/16 21:30 69 20 97 12/06/16 21:05 111/71 12/06/16 20:13 67 12/06/16 19:53 97 Nasal Cannula 3.0 12/06/16 19:52 116/75 12/06/16 19:33 36.4 66 20 122/76 97 Nasal Cannula 4.0 (Maite Bhagat PA-C) Physical Exam General Appearance: WD/WN, no apparent distress, + obese Eyes: PERRL, EOMI ENT: hearing grossly normal, pharynx normal Neck: supple, no adenopathy, no JVD Respiratory/Chest: lungs clear, no respiratory distress, no accessory muscle use, + pertinent finding (wearing 3L via NC, +mediport in upper left chest wall) Cardiovascular: regular rate, rhythm, no murmur, + pertinent finding ( difficult to auscultate due to body habitus.) Abdomen: + pertinent finding (hypoactive bowel sounds, distended, no guarding rebound or tenderness with palpation, pt is nauseous after palpation. ) Extremities: non-tender, no pedal edema, no calf tenderness Neurologic/Psychiatric: alert, oriented x 3 Skin: normal color, warm/dry (Maite Bhagat, TENZIN-C) Laboratory Results Last 24 Hours Test 12/06/16 20:08 12/07/16 03:19 12/07/16 07:10 12/07/16 07:36 White Blood Count 7.51 K/uL Red Blood Count 5.18 M/uL Hemoglobin 15.2 g/dL Hematocrit 42.7 % Mean Corpuscular Volume 82.4 fL Mean Corpuscular Hemoglobin 29.3 pg Mean Corpuscular Hemoglobin Concent 35.6 g/dl Platelet Count 215 K/uL Mean Platelet Volume 8.7 fL Neutrophils (%) (Auto) 93.3 % Lymphocytes (%) (Auto) 5.9 % Monocytes (%) (Auto) 0.1 % Eosinophils (%) (Auto) 0.4 % Basophils (%) (Auto) 0.0 % Neutrophils # (Auto) 7.01 K/uL Lymphocytes # (Auto) 0.44 K/uL Monocytes # (Auto) 0.01 K/uL Eosinophils # (Auto) 0.03 K/uL Basophils # (Auto) 0.00 K/uL RDW Standard Deviation 44.4 fL RDW Coefficient of Variation 14.6 % Immature Granulocyte % (Auto) 0.3 % Immature Granulocyte # (Auto) 0.02 K/uL Prothrombin Time 11.4 SECONDS Prothromb Time International Ratio 1.1 Activated Partial Thromboplast Time 25.1 SECONDS Partial Thromboplastin Ratio 1.0 Sodium Level 131 mmol/L 133 mmol/L Potassium Level 3.2 mmol/L 3.0 mmol/L Chloride Level 85 mmol/L 88 mmol/L Carbon Dioxide Level 30 mmol/L 30 mmol/L Anion Gap 16.0 mmol/L 15.0 mmol/L Blood Urea Nitrogen 48 mg/dl 47 mg/dl Creatinine 1.70 mg/dl 1.50 mg/dl Est Creatinine Clear Calc Drug Dose 69.3 ml/min 79.2 ml/min Estimated GFR () 49.4 57.4 Estimated GFR (Non- 42.6 49.5 BUN/Creatinine Ratio 28.3 31.4 Random Glucose 340 mg/dl 203 mg/dl Calcium Level 8.7 mg/dl 8.6 mg/dl Magnesium Level 2.6 mg/dl Total Bilirubin 0.7 mg/dl 0.8 mg/dl Direct Bilirubin mg/dl Aspartate Amino Transf (AST/SGOT) 51 U/L 46 U/L Alanine Aminotransferase (ALT/SGPT) 127 U/L 108 U/L Alkaline Phosphatase 74 U/L 62 U/L Total Creatine Kinase 139 U/L Creatine Kinase MB 2.9 ng/ml Creatine Kinase MB Ratio 2.1 Troponin I < 0.015 ng/ml Pro-B-Type Natriuretic Peptide 117 pg/ml Total Protein 6.8 gm/dl 6.1 gm/dl Albumin 3.6 gm/dl 3.2 gm/dl Lipase 157 U/L Beta-Hydroxybutyric Acid 4.48 mg/dL Thyroid Stimulating Hormone (TSH) 6.810 uIu/ml Chemistry Specimen Hemolysis Bedside Glucose 210 mg/dl 205 mg/dl Globulin 2.9 gm/dl Albumin/Globulin Ratio 1.1 Free Thyroxine 1.01 ng/dl Free Triiodothyronine 2.83 pg/ml Hepatitis C Antibody Screen NEG (Maite Bhagat, ARCHANA) Assessment and Plan 61-year-old male with past medical history of atrial fibrillation, COPD, DVTs, hypertension, objective sleep apnea, gout, B-cell lymphoma currently undergoing chemotherapy last session about a week ago presented to the ER with complaints of abdominal pain which started about 4 days ago and also with a syncopal episode this morning. Syncopal episode: - Likely secondary to dehydration with nausea and vomiting secondary to chemotherapy which was initiated last Tuesday. - Other differential would include vasovagal episode when he went from sit to standing position. Orthostatic BPs ordered - pt does have a history of medication induced orthostasis secondary to meds for PAF control. Pt had Coreg reduced in Jul from 480 to 240 mg coreg daily so it is possible that he may required another medication reduction. Follows with Aman Singletary PA-C as an outpatient. - EKG reviewed from yesterday with NSR and RBBB, no acute signs of ischemia or ST wave inversions - Head CT negative - Pt does not have hx of seizure activity, but did experience incontinence of urine. A urine culture was not obtained yesterday so have ordered this morning and will culture if indicated. Pt has been on levaquin for pna so it is unlikely if this would grow out. Abdominal pain: CT abdomen and pelvis reviewed - negative for acute process. - Zofran for nausea/vomiting , will add compazine to regimen. Pain control with tylenol (allergy listed as hives), would avoid narcotic regimen. - UA never collected, will order now and urine culture if indicated. - Continue IV fluids - Lipase negative Pneumonia COPD Obstructive sleep apnea - CXR reviewed showing parenchymal infiltrate in the right medial base. - Continue Levaquin 750 mg daily - Continue O2 via NC, chronically wears 3-4 L, on 3 L now. - Continue home Pulmicort inh BID - Patient receives azithromycin 3 times a week prescribed by decorating supervisor ( patient unsure why)- currently held - BiPAP at bedtime Hyperglycemia: - Recently started on metformin for diabetes- will hold for ANGELA, will need to determine the outpatient dose as it is not in med rec. - Blood sugar on arrival 340 -- trending down into the low 200s at this time. - Insulin sliding scale with accuchecks: Will tighten control with carb ratio 1 U for q 8 carbs. - hgb A1c in process Acute kidney injury: Likely dehydration - Creatinine on admission 1.7--> decreased to 1.5 now, baseline at 0.8 - 0.9 - Avoid nephrotoxins - Continue IV fluids and monitor creatinine B-Cell Lymphoma - Initially diagnosed May 2015 and underwent chemotherapy at that time. Now with recurrence of lymphadenopathy and s/p axillary node bx - Currently undergoing antineoplastic therapy with cisplatin, rituxin and gemcitobine- First round initiated on 12/01, repeat infusion scheduled for this tuesday. Then offf 2 weeks. Planned for 6-7 rounds of this therapy with neupogen/neulasta injections as needed. Follows with Dr. Amaro. - Likely that abdominal pain, n/v/d is secondary to chemotherapy regimen as well. Elevated TSH: No known history of hypothyroidism - TSH at 6.8 - Free T4 and free T3 ordered Transaminitis: - AST at 51, ALT at 127, alkaline phosphatase at 74 - Suspect secondary to chemotherapy - Monitor liver enzymes Atrial fibrillation: - Continue diltiazem 240 mg daily and metoprolol 50 mg BID - anticoagulation with xarelto Depression - Continue cymbalta 40 mg daily - Gabapentin 300 mg QPM DVT prophylaxis: teds, scds, Xarelto CODE STATUS: Full code Disposition: Admitted to telemetry, possible discharge in 1 day pending control of n/v. (Maite Bhagat, PAMarkellC) Reviewed: Pt Seen/Exam by Me (Laura Steele DO) History Pt has improved throughout the day. He did have emesis s/p breakfast this AM, but only liquid emesis--no solids noted. Ate lunch and tolerated that without emesis and only mild nausea. Ongoing central abd pain that is improving. No SOB. No further diarrhea. Pt states his only reaction to chemo last year was nausea with strong odors, however that chemo was a different set of medications. Recently started on metformin. Agree with HPI/ROS as noted. (Laura Steele, ) General Appearance: no apparent distress, obese Respiratory: normal breath sounds, no respiratory distress Cardiovascular: normal peripheral pulses, regular rate, rhythm Gastrointestinal: soft, tenderness (diffuse, mostly central and R sided lateral ) Extremities: non-tender, no pedal edema Neurologic/Psychiatric: alert, oriented x 3 Skin Characteristics: normal color, warm/dry (Laura Steele, ) Assessment/Plan Agree with plan as outlined above Abd pain/n/v/d: chemo reaction vs metformin rxn vs related to PNA Improving, monitor CT AP neg for acute HypoK, hypoNa: likely related to above, monitor B cell lymphoma: was to receive 2nd part of chemo from last week tomorrow, on hold given infxn PNA: levaquin (Laura Steele, )
[2016-12-07] MEDS: POTASSIUM CHLR 10MEQ / WTR IV SCH ×4 (10:41→13:58)
[2016-12-07] MEDS ORDERED: ACETAMINOPHEN 325 MG TAB PO PRN (11:45)
[2016-12-07] MEDS: ONDANSETRON INJ 8 MG in DEXTROSE 5% 50ML 50 ML IV PRN (13:02)
[2016-12-07] MEDS: PROCHLORPERAZINE MALEATE 10 MG TAB PO PRN (13:17)
[2016-12-07 21:00] LABS: URINE APPEARANCE CLEAR (CLEAR); URINE BILIRUBIN NEG (NEG); URINE COLOR YELLOW; URINE EPITHELIAL CELL AUTO 20-30 /lpf (0-5); URINE NITRITE NEG (NEG); URINE PH 5.5 (4.5-7.5); UROBILINOGEN NEG (NEG)
[2016-12-07] MEDS ORDERED: GABAPENTIN 300 MG CAP PO SCH (21:00)
[2016-12-07 21:01] LABS: MANUAL MICROSCOPIC REQUIRED? NO; REVIEW REQ? NO
[2016-12-07] MEDS ORDERED: LEVOFLOXACIN / D5W 750 MG in PREMIXED IN D5W 150 ML IV SCH (22:00)
[2016-12-08 04:00] VITALS: BP 124/86; PULSE 75; TEMP 37; O2SAT 97
[2016-12-08] MEDS: NSS + 20MEQ KCL 1000ML 1,000 ML IV SCH ×2 (04:21→14:14)
[2016-12-08 07:25] VITALS: PULSE 73; O2SAT 97
[2016-12-08] MEDS: BUDESONIDE 0.5 MG/2 ML VIAL (PULMICORT) INH SCH (07:25)
[2016-12-08 07:30] VITALS: BP 106/62; PULSE 73; TEMP 36.5; O2SAT 98
[2016-12-08] MEDS: ONDANSETRON INJ 8 MG in DEXTROSE 5% 50ML 50 ML IV PRN (07:34)
[2016-12-08 07:47] LABS: COMPLETE YES; EOS % 1.9 %; HEMATOCRIT 40.9 % (42-52); IG% 0.4 %; LYMPH % 10.8 %; LYMPH ABS # 0.28 K/uL (1.2-3.4); MEAN CELL VOLUME 84.2 fL (80-100); MEAN CORPUSCULAR HEMOGLOBIN 29.4 pg (25-34); MEAN PLATELET VOLUME 8.3 fL (7.4-10.4); MONO % 0.4 %; NEUT % 86.5 %; PLATELET COUNT 121 K/uL (130-400); RED BLOOD COUNT 4.86 M/uL (4.7-6.1)
[2016-12-08 08:01] LABS: PROTHROMBIN TIME (PATIENT) 10.7 SECONDS (9.0-12.0)
[2016-12-08 08:20] VITALS: BP 115/75; PULSE 82
[2016-12-08] MEDS: RIVAROXABAN 20 MG TAB PO SCH (08:24)
[2016-12-08] MEDS: METOPROLOL TARTRATE 50 MG TAB PO SCH (08:24)
[2016-12-08] MEDS: CEROVITE ADV FORMULA TAB PO SCH (08:25)
[2016-12-08] MEDS: DULOXETINE HCL 20 MG CAP PO SCH (08:25)
[2016-12-08] MEDS: DILTIAZEM HCL 120 MG EXT REL CAP PO SCH (08:25)
[2016-12-08] MEDS: FUROSEMIDE 40 MG TAB PO SCH (08:26)
[2016-12-08] MEDS: INSULIN ASPART 100 UNITS/ML 3 ML PEN SC SCH ×2 (08:31→13:04)
--- NOTE | 2016-12-08 08:54 | Hospitalist Progress Note ---
Hospitalist Progress Note Date of Service Dec 08, 2016. Objective Vital Signs Date Time Temp Pulse Resp B/P (MAP) Pulse Ox O2 Delivery O2 Flow Rate FiO2 12/08/16 08:20 82 115/75 (88) 12/08/16 07:30 36.5 73 16 106/62 (77) 98 Nasal Cannula 4.0 12/08/16 07:25 73 14 97 Nasal Cannula 4.0 12/08/16 04:00 CPAP 12/08/16 04:00 37.0 75 20 124/86 (99) 97 CPAP 12/08/16 00:00 Nasal Cannula 4.0 12/07/16 23:33 37.0 70 20 111/79 (90) 97 CPAP 4.0 12/07/16 20:00 Nasal Cannula 4.0 12/07/16 19:34 36.6 89 18 127/83 (98) 98 Nasal Cannula 4.0 12/07/16 19:23 84 14 97 Nasal Cannula 4.0 12/07/16 16:00 Nasal Cannula 4.0 12/07/16 15:48 87 18 102/57 (72) 12/07/16 15:47 36.6 84 18 107/73 (84) 96 4.0 12/07/16 15:47 36.6 83 18 112/70 (84) 96 4.0 12/07/16 12:00 Nasal Cannula 4.0 12/07/16 10:41 36.6 76 20 133/69 (90) 98 96 175/124 (141) 85 110/67 (81) Laboratory Results Last 24 Hours Test 12/07/16 11:21 12/07/16 16:16 12/07/16 19:55 12/07/16 20:06 Bedside Glucose 265 mg/dl 223 mg/dl 243 mg/dl Urine Color YELLOW Urine Appearance CLEAR Urine pH 5.5 Urine Specific [place] 1.020 Urine Protein 2+ Urine Glucose (UA) 2+ Urine Ketones TRACE Urine Occult Blood NEG Urine Nitrite NEG Urine Bilirubin NEG Urine Urobilinogen NEG Urine Leukocyte Esterase NEG Urine WBC (Auto) 1-5 /hpf Urine RBC (Auto) 0-4 /hpf Urine Hyaline Casts (Auto) 1-5 /lpf Urine Epithelial Cells (Auto) 20-30 /lpf Urine Bacteria (Auto) NEG Test 12/08/16 07:01 12/08/16 07:15 12/08/16 07:29 Bedside Glucose 204 mg/dl White Blood Count 2.60 K/uL Red Blood Count 4.86 M/uL Hemoglobin 14.3 g/dL Hematocrit 40.9 % Mean Corpuscular Volume 84.2 fL Mean Corpuscular Hemoglobin 29.4 pg Mean Corpuscular Hemoglobin Concent 35.0 g/dl Platelet Count 121 K/uL Mean Platelet Volume 8.3 fL Neutrophils (%) (Auto) 86.5 % Lymphocytes (%) (Auto) 10.8 % Monocytes (%) (Auto) 0.4 % Eosinophils (%) (Auto) 1.9 % Basophils (%) (Auto) 0.0 % Neutrophils # (Auto) 2.25 K/uL Lymphocytes # (Auto) 0.28 K/uL Monocytes # (Auto) 0.01 K/uL Eosinophils # (Auto) 0.05 K/uL Basophils # (Auto) 0.00 K/uL RDW Standard Deviation 45.5 fL RDW Coefficient of Variation 14.7 % Immature Granulocyte % (Auto) 0.4 % Immature Granulocyte # (Auto) 0.01 K/uL Prothrombin Time 10.7 SECONDS Prothromb Time International Ratio 1.0 Assessment and Plan 61-year-old male with past medical history of atrial fibrillation, COPD, DVTs, hypertension, objective sleep apnea, gout, B-cell lymphoma currently undergoing chemotherapy last session about a week ago presented to the ER with complaints of abdominal pain which started about 4 days ago and also with a syncopal episode this morning. Syncopal episode: - Likely secondary to dehydration with nausea and vomiting secondary to chemotherapy which was initiated last Tuesday. - Other differential would include vasovagal episode when he went from sit to standing position. Orthostatic BPs ordered - pt does have a history of medication induced orthostasis secondary to meds for PAF control. Pt had Coreg reduced in Jul from 480 to 240 mg coreg daily so it is possible that he may required another medication reduction. Follows with Aman Singletary PA-C as an outpatient. - EKG reviewed from yesterday with NSR and RBBB, no acute signs of ischemia or ST wave inversions - Head CT negative - Pt does not have hx of seizure activity, but did experience incontinence of urine. A urine culture was not obtained yesterday so have ordered this morning and will culture if indicated. Pt has been on levaquin for pna so it is unlikely if this would grow out. Abdominal pain: CT abdomen and pelvis reviewed - negative for acute process. - Zofran for nausea/vomiting , will add compazine to regimen. Pain control with tylenol (allergy listed as hives), would avoid narcotic regimen. - UA never collected, will order now and urine culture if indicated. - Continue IV fluids - Lipase negative Pneumonia COPD Obstructive sleep apnea - CXR reviewed showing parenchymal infiltrate in the right medial base. - Continue Levaquin 750 mg daily - Continue O2 via NC, chronically wears 3-4 L, on 3 L now. - Continue home Pulmicort inh BID - Patient receives azithromycin 3 times a week prescribed by professor of surgery ( patient unsure why)- currently held - BiPAP at bedtime Hyperglycemia: - Recently started on metformin for diabetes- will hold for ANGELA, will need to determine the outpatient dose as it is not in med rec. - Blood sugar on arrival 340 -- trending down into the low 200s at this time. - Insulin sliding scale with accuchecks: Will tighten control with carb ratio 1 U for q 8 carbs. - hgb A1c in process Acute kidney injury: Likely dehydration - Creatinine on admission 1.7--> decreased to 1.5 now, baseline at 0.8 - 0.9 - Avoid nephrotoxins - Continue IV fluids and monitor creatinine B-Cell Lymphoma - Initially diagnosed May 2015 and underwent chemotherapy at that time. Now with recurrence of lymphadenopathy and s/p axillary node bx - Currently undergoing antineoplastic therapy with cisplatin, rituxin and gemcitobine- First round initiated on 12/01, repeat infusion scheduled for this tuesday. Then off 2 weeks. Planned for 6-7 rounds of this therapy with neupogen/neulasta injections as needed. Follows with Dr. Amaro. - Likely that abdominal pain, n/v/d is secondary to chemotherapy regimen as well. Elevated TSH: No known history of hypothyroidism - TSH at 6.8 - Free T4 and free T3 ordered Transaminitis: - AST at 51, ALT at 127, alkaline phosphatase at 74 - Suspect secondary to chemotherapy - Monitor liver enzymes Atrial fibrillation: - Continue diltiazem 240 mg daily and metoprolol 50 mg BID - anticoagulation with xarelto Depression - Continue cymbalta 40 mg daily - Gabapentin 300 mg QPM DVT prophylaxis: teds, scds, Xarelto CODE STATUS: Full code Disposition: Admitted to telemetry, possible discharge in 1 day pending control of n/v.
[2016-12-08] MEDS ORDERED: POTASSIUM CHLORIDE 20 MEQ TABCR PO SCH (09:00)
[2016-12-08 11:03] LABS: ESTIMATED AVERAGE GLUCOSE 226 mg/dl; HA1C FLAG Normal (Normal)
[2016-12-08] MEDS: PROCHLORPERAZINE MALEATE 10 MG TAB PO PRN (11:20)
[2016-12-08 11:31] VITALS: BP_SYST 101; BP_SYST 111; BP_DIAS 63; BP_DIAS 66; BP_DIAS 69; PULSE 63; PULSE 70; PULSE 85; TEMP 36.3; O2SAT 98
[2016-12-08] MEDS ORDERED: ONDA4TAB46 PO (11:35)
[2016-12-08] MEDS ORDERED: CMP10 PO (11:35)
[2016-12-08] MEDS ORDERED: LEVO-18 PO (11:35)
--- NOTE | 2016-12-08 11:47 | Discharge Instructions ---
Discharge Instructions Date of Service Dec 08, 2016. Admission Reason for Admission: Abdominal Pain, Episode Of Syncope Discharge Discharge Diagnosis / Problem: Pneumonia and chemotherapy induced nausea and abdominal pain Discharge Goals Goal(s): Decrease discomfort, Improve function, Increase independence, Improve disease control Activity Recommendations Activity Limitations: resume your previous activity Lifting Limitations: no more than 25 pounds, gradually increase as tolerated Exercise/Sports Limitations: rest today, gradually increase as tolerated May Resume Sexual Activity: when tolerated Shower/Bathe: no limitations Driving or Machine Use: resume 1 day after discharge . Instructions / Follow-Up Instructions / Follow-Up You were admitted to [facility] with abdominal pain, nausea, and hypotension and diagnosed with abdominal pain and nausea secondary to chemotherapy for B cell lymphoma and hypotension due to R lower lobe pneumonia. - During your stay here you were treated with intravenous fluids for improved blood pressure, anti-nausea medication, and pain control. You were treated with antibiotics(levaquin) for pneumonia. Your blood cultures were negative. Your symptoms improved and you were stable for discharge home. For pneumonia - Continue Levaquin 750 mg daily x 8 more days to complete a 10 day course. Last dose on 12/15 For nausea: - You can alternate taking zofran 4 mg tablets every 6 hours with compazine 10 mg every 8 hours if you have nausea. - You have been given a 15 day supply. Please discuss this with your oncologist for refills if needed. B-cell Lymphoma - Your chemotherapy has been postponed until next week after pneumonia is resolved. You will be contacted by hematology/oncology for rescheduling. Follow up: Follow up with your Primary Care Provider within 1 week. Follow up with hematology/oncology within 1 week. Current Hospital Diet Patient's current hospital diet: AHA Diet (Heart Healthy), Diabetes Type 2 Diet Discharge Diet Recommended Diet: AHA Diet (Heart Healthy), Diabetes Type 2 Diet Pending Studies Studies pending at discharge: no Laboratory Results Hemoglobin A1c Test 12/08/16 07:15 Range/Units Estimated Average Glucose 226 mg/dl Hemoglobin A1c 9.5 H 4.5-5.6 % Medical Emergencies . Who to Call and When: Medical Emergencies: If at any time you feel your situation is an emergency, please call 911 immediately. . Non-Emergent Contact Non-Emergency issues call your: Primary Care Provider Call Non-Emergent contact if: you have a fever, temperature is above 100.5, your pain is not controlled, your pain is worsening, you have any medication questions . Past History Medical & Surgical History: (1) B-cell lymphoma (2) Abdominal pain (3) Pneumonia . "Provider Documentation" section prepared by Breonna Bhagat. . VTE Core Measure Inpt VTE Proph given/why not?: Other Anticoagulation (xarelto), T.E.D. Stockings, SCD's
[2016-12-08 13:34] VITALS: BP 101/63; PULSE 85; TEMP 36.3; O2SAT 98
--- NOTE | 2016-12-08 14:31 | Discharge Summary ---
Discharge Summary Date of Service Dec 08, 2016. (Maite Bhagat PA-C) Discharge Summary Admission Date: Dec 07, 2016 at 00:52 Discharge Date: Dec 08, 2016 Discharge Disposition: Home Principal Diagnosis: RLL Pneumonia and chemotherapy induced nausea and abdominal pain Problems/Secondary Diagnoses: (1) Anticoagulants,Lt,Current Use Status: Chronic (2) B-cell lymphoma Status: Chronic (3) Chronic Atrial Fibrillation Status: Chronic (4) COPD (chronic obstructive pulmonary disease) Status: Chronic (5) Dependence On Supplemental Oxygen Status: Chronic (6) Gout, Unspecified Status: Chronic (7) Hypertension Status: Chronic (8) Obstructive Sleep Apnea (Adult) (Pediatric) Status: Chronic Procedures: CHEST ONE VIEW PORTABLE 12/06/16 IMPRESSION: 1. Moderate stable cardiomegaly. 2. Small parenchymal infiltrate medial right base. HEAD CT NONCONTRAST 12/06/16 Impression: No acute intracranial abnormality. ABDOMEN AND PELVIS CT WITHOUT CONTRAST 12/06/16 IMPRESSION: 1. No acute process of the abdomen or pelvis. 2. Several small scattered nodes throughout the abdomen and pelvic region are stable. 3. Nonobstructive bowel pattern with a normal appendix. 4. Mild chronic sigmoid diverticulosis. I thought she was okay with us doing Consultations: None (Maite Bhagat PA-C) Medication Reconciliation New Medications: Levofloxacin (Levaquin) 750 Mg Tab 1 TAB PO DAILY for 8 Days, #8 TAB Ondansetron Hcl (Zofran) 4 Mg Tab 4 MG PO Q6 PRN for Nausea for 15 Days, #60 TAB Prochlorperazine Maleate (Prochlorperazine Maleate) 10 Mg Tab 10 MG PO Q8H PRN for nausea for 15 Days, #45 TAB Continued Medications: Amoxicillin & Pot Clavulanate (Amoxicillin/Clavulanate P) 1 Tab Tab 1 TAB PO BID PRN for COPD Rescue Kit for 10 Days, #20 TAB COPD RESCUE KIT Azithromycin (Zithromax) 250 Mg Tab 250 MG PO 3XWK TAKE THIS MEDICATION EVERY TUESDAY, TUESDAY, AND TUESDAY Budesonide (Inhalation) (Pulmicort) 1 Mg/2 Ml Olga 2 ML NEB BID Dexamethasone (Decadron) 4 Mg Tab 4 MG PO UD, #40 TAKE 10 TABLETS (40 MG) ORALLY PER PACKAGE DIRECTIONS. TAKE ON DAYS 1 THRU 4 AT THE BEGINNING OF EACH NEW CHEMO CYCLE. Diltiazem Hcl Extended Release (Diltiazem Hcl Er) 120 Mg Cap 240 MG PO QAM Duloxetine HCl (Duloxetine HCl) 20 Mg Cap 40 MG PO DAILY Fish Oil (Fish Oil) 1 Gm Cap 2 CAP PO DAILY Furosemide (Furosemide) 40 Mg Tab 40 MG PO DAILY Furosemide (Furosemide) 20 Mg Tab 20 MG PO Q2D TAKE THIS MEDICATION IN ADDITION TO 40 MG DAILY DOSE EVERY OTHER DAY Gabapentin (Gabapentin) 300 Mg Cap 300 MG PO QPM Ipratropium-Albuterol (Duoneb) 3 Ml Nebu 1 TREATMENT INH QID PRN for COPD, INHA Metoclopramide Hcl (Metoclopramide Hcl) 5 Mg Tab 5 MG PO Q4H PRN for Hiccups Metoprolol Tartrate (Metoprolol Tartrate) 50 Mg Tab 50 MG PO BID Ocuvite Preservision (Ocuvite Preservision) 1 Tab Tab 2 TABS PO DAILY, TAB Ondansetron (Ondansetron HCl) 8 Mg Tab 8 MG PO Q8 PRN for Nausea Oxygen (Oxygen) Gas 4 LITER NA CONTINOUS 5 LITERS WHEN ACTIVE Prednisone (Prednisone) 20 Mg Tab 40 MG PO UD PRN for COPD Rescue Kit COPD RESCUE KIT FOLLOWS: TAKE 2 TABLETS (40 MG) DAILY FOR 5 DAYS Rivaroxaban (Xarelto) 20 Mg Tab 20 MG PO DAILY Umeclidinium-Vilanterol (Anoro Ellipta 62.5-25 Mcg/INH) 1 Aer Aer 1 PUFF INH QAM Discharge Exam The patient was seen and examined this morning. Pt reports doing well. She feels much improved today compared to yesterday. The patient tolerated breakfast without any difficulty, his nausea has resolved with Zofran and Compazine on board. He reports his abdominal pain is resolved. Denies fevers, sweats, chills, lightheadedness, dizziness, chest pain, shortness of breath, cough, last bowel movement was yesterday, numbness or tingling. ROS: 6 point ROS was reviewed and otherwise negative unless listed in HPI. General Appearance: WD/WN, no apparent distress, + obese Eyes: PERRL, EOMI ENT: hearing grossly normal, pharynx normal Neck: supple, no adenopathy, no JVD Respiratory/Chest: lungs clear, no respiratory distress, no accessory muscle use, + pertinent finding (wearing 3L via NC, +mediport in upper left chest wall) Cardiovascular: regular rate, rhythm, no murmur, + pertinent finding ( difficult to auscultate due to body habitus.) Abdomen: + pertinent finding (hypoactive bowel sounds, distended, no guarding rebound or tenderness with palpation, pt is nauseous after palpation. ) Extremities: non-tender, no pedal edema, no calf tenderness Neurologic/Psychiatric: alert, oriented x 3 Skin: normal color, warm/dry (Maite Bhagat PA-C) Hospital Course H&P per Neha Thornton M.D. resident. History of Present Illness Source: patient, family 61-year-old male with past medical history of atrial fibrillation, COPD, DVTs, hypertension, objective sleep apnea, gout, B-cell lymphoma currently undergoing chemotherapy last session about a week ago presented to the ER with complaints of abdominal pain which started about 4 days ago and also with a syncopal episode this morning. He stated that he had a syncopal episode while walking to the bathroom this morning and could not recollect if he had felt dizzy or lightheaded prior to the fall. He denied any chest pain but had shortness of breath. He did not hit his head after the fall but had incontinence of urine after. Physical Exam Vital Signs Date Time Temp Pulse Resp B/P (MAP) Pulse Ox O2 Delivery O2 Flow Rate FiO2 12/07/16 01:28 88 22 118/73 94 Nasal Cannula 4.0 12/07/16 00:00 84 22 119/76 97 Nasal Cannula 4.0 12/06/16 22:50 134/84 12/06/16 22:40 76 16 97 12/06/16 22:35 76 20 97 12/06/16 22:05 72 21 97 12/06/16 21:35 74 24 96 12/06/16 21:30 69 20 97 12/06/16 21:05 111/71 12/06/16 20:13 67 12/06/16 19:53 97 Nasal Cannula 3.0 12/06/16 19:52 116/75 12/06/16 19:33 36.4 66 20 122/76 97 Nasal Cannula 4.0 General Appearance: WD/WN, no apparent distress, + obese Head: normocephalic Eyes: normal inspection ENT: normal ENT inspection, + pertinent finding (hearing loss) Neck: supple Respiratory/Chest: chest non-tender, lungs clear, normal breath sounds, no respiratory distress, no accessory muscle use Cardiovascular: + irregularly irregular Abdomen/GI: normal bowel sounds, soft, + tenderness (mid abdominal area) Extremities/Musculoskelatal: no pedal edema Neurologic/Psych: alert, normal mood/affect, oriented x 3 Skin: normal color Hospital course: Syncopal episode: - Likely secondary to dehydration with nausea and vomiting secondary to chemotherapy which was initiated last Tuesday. - Other differential would include vasovagal episode when he went from sit to standing position. Orthostatic BPs ordered - pt does have a history of medication induced orthostasis secondary to meds for PAF control. Pt had Coreg reduced in Jul from 480 to 240 mg coreg daily so it is possible that he may required another medication reduction. Follows with Aman Singletary PA-C as an outpatient. - EKG reviewed from yesterday with NSR and RBBB, no acute signs of ischemia or ST wave inversions - Head CT negative - Pt does not have hx of seizure activity, but did experience incontinence of urine. A urine culture was not obtained yesterday so have ordered this morning and will culture if indicated. Pt has been on levaquin for pna so it is unlikely if this would grow out. Abdominal pain: CT abdomen and pelvis reviewed - negative for acute process. - Zofran for nausea/vomiting improved with the addition of Compazine to increase dosage Zofran 8 mg every 4H prn. Have provided prescriptions at the time of discharge., Pain control with tylenol (allergy listed as hives), would avoid narcotic regimen. - UA never collected, will order now and urine culture if indicated. - Continue IV fluids - Lipase negative Pneumonia COPD Obstructive sleep apnea - CXR reviewed showing parenchymal infiltrate in the right medial base. - Continue Levaquin 750 mg daily - switched over to oral, continue for 8 more days to complete a ten-day course. - Continue O2 via NC, chronically wears 3-4 L, on 3 L now. - Continue home Pulmicort inh BID - Patient receives azithromycin 3 times a week prescribed by slat basket maker helper machine ( patient unsure why)- currently held - BiPAP at bedtime Hyperglycemia: - Recently started on metformin for diabetes- will hold for ANGELA, will need to determine the outpatient dose as it is not in med rec. - Blood sugar on arrival 340 -- trending down into the low 200s at this time. - Insulin sliding scale with accuchecks: Will tighten control with carb ratio 1 U for q 8 carbs. - hgb A1c in process Acute kidney injury: Likely dehydration - Creatinine on admission 1.7 and trended down throughout admission, baseline at 0.8 - 0.9 - Avoid nephrotoxins -Was tolerating oral intake without difficulty B-Cell Lymphoma - Initially diagnosed May 2015 and underwent chemotherapy at that time. Now with recurrence of lymphadenopathy and s/p axillary node bx - Currently undergoing antineoplastic therapy with cisplatin, rituxin and gemcitobine- First round initiated on 12/01, repeat infusion scheduled for this tuesday. Then off 2 weeks. - Part of chemotherapy has been postponed due to acute pneumonia, oncology to follow up with the patient scheduled for next week. - Planned for 6-7 rounds of this therapy with neupogen/neulasta injections as needed. Follows with Dr. Amaro. - Likely that abdominal pain, n/v/d is secondary to chemotherapy regimen as well. Elevated TSH: No known history of hypothyroidism - TSH at 6.8 - Free T4 and free T3 normal Transaminitis: - AST at 51, ALT at 127, alkaline phosphatase at 74 - can have oncology follow LFTs with next CBC draw prior to chemotherapy - Suspect secondary to chemotherapy - Monitor liver enzymes Atrial fibrillation: - Continue diltiazem 240 mg daily and metoprolol 50 mg BID - anticoagulation with xarelto Depression - Continue cymbalta 40 mg daily - Gabapentin 300 mg QPM DVT prophylaxis: teds, scds, Xarelto CODE STATUS: Full code Disposition: Admitted to telemetry, discharged to home today. Total Time Spent: Greater than 30 minutes This includes examination of the patient, discharge planning, medication reconciliation, and communication with other providers. (Maite Bhagat PA-C) Discharge Instructions Please refer to the electronic Patient Visit Report (Discharge Instructions) for additional information. (Maite Bhagat PA-C) Follow-Up Follow up with your Primary Care Provider within 1 week. Follow up with hematology/oncology within 1 week. (Maite Bhagat PA-C) Additional Copies To Nery Grace M.D. Reviewed: Pt Seen/Exam by Me (Laura Steele DO) History Pt is doing well and would like to d/c to home. He has been able to tolerate PO. He does have nausea at times, but it has been controlled with zofran. Abd pain is improving. Agree with HPI/ROS as noted. (Laura Steele DO) General Appearance: no apparent distress, obese Respiratory: normal breath sounds, no respiratory distress Cardiovascular: normal peripheral pulses, regular rate, rhythm Gastrointestinal: soft, tenderness (improving) Extremities: non-tender, no pedal edema Neurologic/Psychiatric: alert, oriented x 3 Skin Characteristics: normal color, warm/dry (Laura Steele DO) Assessment/Plan Agree with plan as outlined above Abd pain/n/v/d: chemo reaction vs metformin rxn vs related to PNA Improving, monitor CT AP neg for acute Advised that he should discuss metformin ER with PCP if return of sx on d/c HypoK, hypoNa: likely related to above, monitor B cell lymphoma: was to receive 2nd part of chemo from last week tomorrow, on hold given infxn PNA: levaquin Lengthy discussion with pt about diet and DM diet given new onset of DM just prior to admission. He and would greatly benefit from seeing golf course mechanic. (Laura Steele DO)
[2016-12-08 15:00] LABS: CREATININE 1.8 mg/dl (0.60-1.40)
[2016-12-08 16:22] VITALS: Ht 182.9 cm; Wt 152.6 kg
[2017-04-08] MEDS ORDERED: MAGN250T8 PO (16:03)
[2017-04-08] MEDS ORDERED: PROC1TAB5 PO (16:03)
[2017-04-08] MEDS ORDERED: INSDGIPEN SC (16:03)
== END 2016-12-08 18:05 | disposition home or self-care (01) | DRG 682 ==
LOC: C.EDB 19:31 → EEVIPCON 12-07 00:52 → C.MED 12-07 00:52 → ENRESERV 12-07 01:10
PROVIDERS: ADMIT Family Medicine; ATTEND Family Medicine
DX: N17.9 Acute kidney failure, unspecified (principal); J18.9 Pneumonia, unspecified organism; J44.0 Chronic obstructive pulmonary disease with (acute) lower respiratory infection; C85.10 Unspecified B-cell lymphoma, unspecified site; Z68.42 Body mass index [BMI] 45.0-49.9, adult; R55 Syncope and collapse; E86.0 Dehydration; T45.1X5A Adverse effect of antineoplastic and immunosuppressive drugs, initial encounter; R11.2 Nausea with vomiting, unspecified; R10.11 Right upper quadrant pain; R10.12 Left upper quadrant pain; R32 Unspecified urinary incontinence; E87.6 Hypokalemia; E11.65 Type 2 diabetes mellitus with hyperglycemia; R94.6 Abnormal results of thyroid function studies; R74.0 Nonspecific elevation of levels of transaminase and lactic acid dehydrogenase [LDH]; I48.2 Chronic atrial fibrillation; I11.9 Hypertensive heart disease without heart failure; M10.9 Gout, unspecified; F32.9 Major depressive disorder, single episode, unspecified; E66.9 Obesity, unspecified; G47.33 Obstructive sleep apnea (adult) (pediatric); Z79.899 Other long term (current) drug therapy; Z79.01 Long term (current) use of anticoagulants; Z79.84 Long term (current) use of oral hypoglycemic drugs; Z79.52 Long term (current) use of systemic steroids; Z99.81 Dependence on supplemental oxygen; Z86.718 Personal history of other venous thrombosis and embolism; Z91.81 History of falling; Z87.891 Personal history of nicotine dependence

== ENCOUNTER 2017-01-04 13:44 | Inpatient (IN) | payer BC ==
[~2017-01-04] VITALS: Ht 180.3 cm; Wt 148.1 kg
[~2017-01-04 13:44] MED LIST changes: -ALPR-411 PO; -BUDE0.253 NEB; +BUDE1SUS NEB; +CMP10 PO; +CYM20 PO; +DILT120C67 PO; -DILT120C68 PO; -DULO-24 PO; +DXM/4 PO; -FRS/40 PO; -FURO-85 PO; -GABA-113 PO; +GABA1CAP4 PO; +LSX20 PO; +LSX40 PO; -METO50TA16 PO; +METO50TA17 PO; +METO5TAB2 PO; +ONDA-63 PO; -PRED10TA PO; +PRED20TA PO; -RIVA1TAB4 PO; +XRL20 PO
[2017-01-04] MEDS ORDERED: LEVALBUTEROL/IPRATROPIUM NEB INH STA (14:16)
[2017-01-04] MEDS ORDERED: IPRATROPIUM BROMIDE NEB SOLN 0.02% 2.5 ML VIAL INH STA (14:28)
[2017-01-04] MEDS ORDERED: LEVALBUTEROL 1.25MG/0.5ML NEB INH STA (14:29)
[2017-01-04] MEDS ORDERED: ONDANSETRON 8 MG/54 ML D5W IV ONE (14:30)
[2017-01-04] MEDS ORDERED: SODIUM CHLORIDE 0.9% 1000ML 1,000 ML IV ONE (14:30)
[2017-01-04] MEDS ORDERED: GEMC1INJ IV (14:32)
[2017-01-04] MEDS ORDERED: RTXI100 IV (14:32)
[2017-01-04] MEDS ORDERED: [UNRECOGNIZED DRUG - CODE] IV (14:32)
[2017-01-04 14:36] LABS: HEMATOCRIT 33.4 % (42-52); MEAN CELL VOLUME 85.9 fL (80-100); MEAN CORPUSCULAR HEMOGLOBIN 29.3 pg (25-34); MEAN CORPUSCULAR HGB CONC 34.1 g/dl (32-36); MEAN PLATELET VOLUME 8.4 fL (7.4-10.4); PLATELET COUNT 142 K/uL (130-400); RED BLOOD COUNT 3.89 M/uL (4.7-6.1); WHITE BLOOD COUNT 8.38 K/uL (4.8-10.8)
--- NOTE | 2017-01-04 14:39 | EMERGENCY ROOM VISIT NOTE ---
History First contact with patient: 13:55 Chief Complaint: RESPIRATORY PROBLEMS Stated Complaint: HARD BREATHING, CHEMO SIDE EFFECT Nursing Triage Summary: pt c/o headache, congestion and vomiting for the past 2 days. History of Present Illness The patient is a 61 year old male who presents to the Emergency Room with complaints of nausea, vomiting and respiratory symptoms that have been progressively worse for the last 4 days. The patient has a history of B-cell lymphoma. He received chemotherapy 4 days ago. His vomiting started shortly thereafter. The patient typically does have severe vomiting with his chemotherapy. He is also complaining of constant abdominal pain in the central part of his abdomen. This also frequently happens with this chemotherapy. He has also had some episodes of diarrhea. He denies any dark stools or bright red blood in his stools. No hematemesis. The patient has tried Zofran and Compazine at home with minimal relief. The patient is also complaining of respiratory symptoms that started this morning. He developed a cough with yellow sputum and shortness of breath. He does have a history of COPD and wears 4 L of oxygen at all times. He does complain of feverish symptoms with a headache and achiness. Review of Systems 10 system review performed and negative unless noted in HPI or below Past Medical/Surgical History Medical Problems: (1) Abdominal pain (2) Anticoagulants,Lt,Current Use (3) Atrial fibrillation with rapid ventricular response (4) B-cell lymphoma (5) B-cell lymphoma (6) Cellulitis and abscess of leg, except foot (7) Chronic Atrial Fibrillation (8) COPD (chronic obstructive pulmonary disease) (9) COPD exacerbation (10) Dependence On Supplemental Oxygen (11) DVT (deep venous thrombosis) (12) Episode of syncope (13) Facial contusion (14) Fall (15) Fracture of rib of left side (16) Gout, Unspecified (17) HCAP (healthcare-associated pneumonia) (18) Hypertension (19) Hypoxemia (20) Hypoxia (21) Injury of left leg (22) Injury of left lower arm (23) New onset atrial fibrillation (24) Obstructive Sleep Apnea (Adult) (Pediatric) (25) sob, copd exac, and pleural effusion (26) Traumatic closed fracture of one rib of left side with minimal displacement Chronic respiratory failure-on 4 L of oxygen at all times Diabetes mellitus type 2 B-cell lymphoma History of chronic A. fib on anticoagulation Obstructive sleep apnea Family History Cancer Lung disease Diabetes Cancer Social History Smoking Status: Former Smoker Alcohol Use: none Drug Use: none Marital Status: Housing Status: lives with family Occupation Status: employed Current/Historical Medications Scheduled Azithromycin (Zithromax), 250 MG PO MWF Budesonide (Inhalation) (Pulmicort), 2 ML NEB BID Diltiazem Hcl Extended Release (Diltiazem Hcl Er), 240 MG PO QAM Fish Oil (Fish Oil), 2 CAP PO DAILY Furosemide (Furosemide), 40 MG PO DAILY Furosemide (Furosemide), 20 MG PO Q2D Gabapentin (Gabapentin), 300 MG PO QPM Gemcitabine Hcl (Gemcitabine), IV BIWEEKLY Home O2 Therapy (Oxygen), 4 LITER NA CONTINOUS Metoprolol Tartrate (Metoprolol Tartrate), 50 MG PO BID Ocuvite Preservision (Ocuvite Preservision), 2 TABS PO DAILY Oxaliplatin (Oxaliplatin), Unknown Dose IV BIWEEKLY Rituximab (Rituxan), Unknown Dose IV BIWEEKLY Rivaroxaban (Xarelto), 20 MG PO PM Umeclidinium-Vilanterol (Anoro Ellipta 62.5-25 Mcg/INH), 1 PUFF INH QAM Scheduled PRN Amoxicillin & Pot Clavulanate (Amoxicillin/Clavulanate P), 1 TAB PO BID PRN for COPD Rescue Kit Ipratropium-Albuterol (Duoneb), 1 TREATMENT INH QID PRN for COPD Ondansetron (Ondansetron HCl), 8 MG PO Q8 PRN for Nausea Prednisone (Prednisone), 40 MG PO UD PRN for COPD Rescue Kit Prochlorperazine Maleate (Prochlorperazine Maleate), 10 MG PO Q8H PRN for nausea Allergies Coded Allergies: Aspirin (Verified Allergy, Severe, ANAPHYLAXIS, 10/28/16) Ibuprofen (Verified Allergy, Intermediate, HIVES, 10/28/16) Acetaminophen (Verified Allergy, Mild, HIVES, 10/28/16) Physical Exam Vital Signs Date Time Temp Pulse Resp B/P (MAP) Pulse Ox O2 Delivery O2 Flow Rate FiO2 01/04/17 18:51 81 01/04/17 18:45 83 18 104/60 96 Nasal Cannula 3.0 01/04/17 18:44 87 21 97 01/04/17 18:43 69/31 01/04/17 17:07 89 18 102/68 96 Nasal Cannula 4.0 01/04/17 16:44 87 15 98 01/04/17 16:28 102/68 01/04/17 16:14 87 18 96 01/04/17 15:54 87 18 126/74 96 Room Air 01/04/17 15:53 126/74 01/04/17 14:44 86 17 98 01/04/17 14:42 96 18 96 Nasal Cannula 4.0 01/04/17 14:27 90 01/04/17 14:19 99 Nasal Cannula 4.0 01/04/17 14:16 99 Nasal Cannula 4.0 01/04/17 13:46 39.0 89 18 111/67 99 Nasal Cannula 4.0 Physical Exam VITALS: Vitals are noted on the nurse's note and reviewed by myself. Vital signs stable. GENERAL: 61-year-old obese male, in mild distress SKIN: The skin was without rashes, erythema, edema, or bruising. HEAD: Normocephalic atraumatic. EYES: Extraocular movements intact. MOUTH: Mucous membranes slightly dry NECK: Supple without nuchal rigidity. No lymphadenopathy. No JVD. HEART: Regular rate and rhythm without murmurs gallops or rubs. LUNGS: Clear to auscultation bilaterally without wheezes, rales or rhonchi. No accessory muscle use. ABDOMEN: Bowel sounds hypoactive. Tenderness to palpation in the epigastric region. No guarding or rebound tenderness. MUSCULOSKELETAL: Trace edema noted in the lower extremities without any erythema , tenderness or warmth appreciated. Strength 5/5 throughout. NEURO: Patient was alert and oriented to person place and time. Normal sensation to touch. No focal neurological deficits. Medical Decision & Procedures ER Provider Diagnostic Interpretation: Patient Name: LE RODRÍGUEZ Unit Number: [id number] Dictated: 01/04/171532 Transcribed: 01/04/171532 EV Printed Date/Time: [~ rep prt dt]/[~ rep prt tm] [~ rep ct labl] - [~ rep ct ivnm] [facility] [place] [address] Dictated: 01/04/171532 Transcribed: 01/04/17 153 EV Printed Date/Time: [~ rep prt dt]/[~ rep prt tm] [~ rep ct labl] - [~ rep ct ivnm] Patient: LE RODRÍGUEZ Address1: [address] [place] [address] Rec: [id number] Address2: Acct ID: [id number] [facility] Zip: [place] [id number] Date: 1955 Sex: M Room/Bed: Ref Phy: Nery Grace M.D. SC: OTILIA Att Phy: Report #: [id number] Carole Phy: Nery Grace M.D. Test: CXR Admit Phy: First Sampler: SCOTT Interpreting Phy: Philip Gomez M.D. Diagnosis: HARD BREATHING, CHEMO SIDE EFFECT Ordering Phy: Ofelia Steiner PA-C Service Date: 01/04/17 Admit Date: 01/04/17 MNE: PWRSCRIBE CONF: DICTATED BY: Philip Gomez M.D.]] CC: Savage Salter M.D. Hays, Amy L., M.D. Urban, Angela P., PA-C Endcc: [~ rep ct add3]] TWO VIEW CHEST CLINICAL HISTORY: Atypical chest pain. FINDINGS: PA and lateral chest radiographs are compared to study dated 12/06/2016 and correlated with chest CT dated 09/09/2016. The examination is degraded by large body habitus. A right subclavian central venous infusion port is unchanged in position. The heart is enlarged and there is atherosclerotic calcification of the thoracic aorta. The pulmonary vascular structures noncongested. There is no airspace consolidation typical for pneumonia or large pleural effusion. Bibasilar atelectasis is observed. Because granuloma is again noted in the right upper lung. There is no pneumothorax. The skeletal structures are osteopenic. Degenerative change is noted in the thoracic spine. Numerous metallic foreign bodies are again seen projecting over the left chest. IMPRESSION: Cardiomegaly with no acute cardiopulmonary abnormality. Electronically signed by: Philip Gomez M.D. 01/04/2017 3:35 PM Dictated Date/Time: 01/04/2017 3:33 PM The status of this report is Signed. Draft = Not yet reviewed or approved by Radiologist. Signed = Reviewed and approved by Radiologist. <AttendingPhy></AttendingPhy> <FamilyPhy>Nery Grace M.D.</FamilyPhy> < PrimaryPhy>Nery Grace M.D.</PrimaryPhy> <UnitNumber>[id number]</UnitNumber> < VisitNumber>[id number]</VisitNumber> <PatientName>LE RODRÍGUEZ</PatientName> <DateOfBirth>1955</DateOfBirth> <Location>[facility]</Location> <ServiceDate></ServiceDate> <MNE>ESINDI</MNE> <OrderingPhy>Ofelia Steiner PA-C</ OrderingPhy> <OrderingPhyMNE>f rep ord dr crockett</OrderingPhyMNE> <DictatingPhyMNE> f rep dict dr crockett</DictatingPhyMNE> <CCListMNE>f rep ct mne</CCListMNE> < AdmittingPhyMNE>f pt admit dr crockett</AdmittingPhyMNE> <AttendingPhyMNE>f pt attend dr crockett</AttendingPhyMNE> <ConsultingPhyMNE>f pt consult dr crockett</ConsultingPhyMNE> <FamilyPhyMNE>f pt fam dr crockett</FamilyPhyMNE> <OtherPhyMNE>f pt other dr crockett</OtherPhyMNE> < PrimaryPhyMNE>f pt prim care dr crockett</PrimaryPhyMNE> <ReferringPhyMNE>f pt referring dr crockett</ReferringPhyMNE> Patient Name: LE RODRÍGUEZ Unit Number: [id number] Dictated: 01/04/171529 Transcribed: 01/04/171529 EV Printed Date/Time: [~ rep prt dt]/[~ rep prt tm] [~ rep ct labl] - [~ rep ct ivnm] [facility] [place] [place] [address] Dictated: 01/04/171529 Transcribed: 01/04/171529 EV Printed Date/Time: [~ rep prt dt]/[~ rep prt tm] [~ rep ct labl] - [~ rep ct ivnm] Patient: LE RODRÍGUEZ Address1: [address] [facility] Rec: [id number] Address2: Acct ID: [id number] [facility] Zip: [place] [id number] Date: 1955 Sex: M Room/Bed: Ref Phy: Nery Grace M.D. SC: ROULAB Att Phy: Report #: [id number] Carole Phy: Nery Grace M.D. Test: ABD2 Admit Phy: First Sampler: SCOTT Interpreting Phy: Philip Gomez M.D. Diagnosis: HARD BREATHING, CHEMO SIDE EFFECT Ordering Phy: Ofelia Steiner PA-C Service Date: 01/04/17 Admit Date: 01/04/17 MNE: PWRSCRIBE CONF: DICTATED BY: Philip Gomez M.D.]] CC: Savage Salter M.D. Hays, Amy L., M.D. Urban, Angela P., PA-C Endcc: [~ rep ct add3]] ABDOMEN 2 VIEWS CLINICAL HISTORY: Generalized abdominal pain. Vomiting. FINDINGS: Supine and erect abdominal radiograph are correlated with abdominal CT dated 12/06/2016. The examination is degraded by large body habitus. There is a nonobstructed abdominal bowel gas pattern. No evidence of intraperitoneal free air is seen. Numerous metallic foreign bodies are again seen projecting over the left abdomen. Postoperative change is noted in the left groin. No abnormal abdominal calcifications are identified. The bony structures appear intact noting lumbosacral spondylosis and mild scoliosis. IMPRESSION: Nonobstructed abdominal bowel gas pattern. Electronically signed by: Philip Gomez M.D. 01/04/2017 3:32 PM Dictated Date/Time: 01/04/2017 3:30 PM The status of this report is Signed. Draft = Not yet reviewed or approved by Radiologist. Signed = Reviewed and approved by Radiologist. <AttendingPhy></AttendingPhy> <FamilyPhy>Nery Grace M.D.</FamilyPhy> < PrimaryPhy>Nery Grace M.D.</PrimaryPhy> <UnitNumber>[id number]</UnitNumber> < VisitNumber>[id number]</VisitNumber> <PatientName>LE RODRÍGUEZ</PatientName> <DateOfBirth>1955</DateOfBirth> <Location>[facility]</Location> <ServiceDate></ServiceDate> <MNE>ESINDI</MNE> <OrderingPhy>Ofelia Steiner PA-C</ OrderingPhy> <OrderingPhyMNE>f rep ord dr crockett</OrderingPhyMNE> <DictatingPhyMNE> f rep dict dr crockett</DictatingPhyMNE> <CCListMNE>f rep ct mne</CCListMNE> < AdmittingPhyMNE>f pt admit dr crockett</AdmittingPhyMNE> <AttendingPhyMNE>f pt attend dr crockett</AttendingPhyMNE> <ConsultingPhyMNE>f pt consult dr crockett</ConsultingPhyMNE> <FamilyPhyMNE>f pt fam dr crockett</FamilyPhyMNE> <OtherPhyMNE>f pt other dr crockett</OtherPhyMNE> < PrimaryPhyMNE>f pt prim care dr crockett</PrimaryPhyMNE> <ReferringPhyMNE>f pt referring dr crockett</ReferringPhyMNE> Patient: LE RODRÍGUEZ Address1: [address] [place] [address] Rec: [id number] Address2: Acct ID: [id number] [facility] Zip: [facility] [id number] Date: 1955 Sex: M Room/Bed: Ref Phy: Nery Grace M.D. SC: OTILIA Att Phy: Report #: [id number] Carole Phy: Nery Grace M.D. Test: APIV Admit Phy: First Sampler: FARNAZ Interpreting Phy: Philip Gomez M.D. Diagnosis: HARD BREATHING, CHEMO SIDE EFFECT Ordering Phy: Ofelia Steiner PA-C Service Date: 01/04/17 Admit Date: 01/04/17 MNE: PWRSCRIBE CONF: DICTATED BY: Philip Gomez M.D.]] CC: Savage Salter M.D. Nery Grace M.D. Ofelia Steiner, ARCHANA End: [~ rep ct add3]] CT SCAN OF THE ABDOMEN AND PELVIS WITH IV CONTRAST CLINICAL HISTORY: Generalized abdominal pain. Lymphoma. COMPARISON STUDY: Abdominal CT scans dated 12/06/2016 and 09/09/2016. PET/CT dated 11/03/2016. TECHNIQUE: Following the IV administration of 109 of Optiray 320, CT scan of the abdomen and pelvis was performed from the lung bases to the proximal femora. Images are reviewed in the axial, sagittal, and coronal planes. IV contrast was administered without complication. Automated dose control exposure was utilized. The examination is degraded by large body habitus, and by streak artifact from the body wall abutting the CT gantry. CT DOSE: 1843.27 mGy.cm FINDINGS: Lower chest: Emphysema is noted. The heart is enlarged and there is trace pericardial effusion. The coronary arteries are densely calcified. No airspace consolidation or pleural effusion is identified. Bibasilar scarring versus atelectasis is noted an similar to previous, right greater than left. Metallic foreign bodies are present in the left lower lobe. Liver: Evaluation of the liver is degraded by streak artifact. The contrast-enhanced liver is enlarged, measure over 20 cm in length. The liver demonstrates diffusely diminished attenuation consistent with hepatic steatosis. There is no intrahepatic or ductal dilatation. The hepatic veins and portal veins are patent. Gallbladder: Unremarkable. Spleen: The spleen is enlarged, measuring 16.3 cm in length. Metallic foreign bodies are noted in the spleen and the surrounding left upper quadrant soft tissues. There are small calcified splenic granulomas. Pancreas: Atrophic and grossly unremarkable. Adrenal glands: A 2.8 cm indeterminant right adrenal nodule is unchanged. The left adrenal gland is unremarkable. Kidneys: The contrast enhanced kidneys demonstrate mild cortical atrophy and are without hydronephrosis. The kidneys enhance symmetrically. A small metallic foreign body is noted in the left kidney. Abdominal vasculature: The abdominal aorta is normal in course and caliber noting moderate to advanced atherosclerotic calcification. Stomach and bowel: There is a small hiatal hernia. The stomach and duodenum otherwise normal in configuration. The small bowel and colon are normal in course and caliber. There is moderate sigmoid diverticulosis without CT evidence of acute diverticulitis. The appendix is well-visualized and normal. Peritoneum: There is no intraperitoneal free air or abdominal ascites. Lymphadenopathy: Mildly enlarged retroperitoneal lymph nodes have not significantly changed from 12/06/2016. A investment representative aortocaval node on image #20 and 28 measures 1.7 cm in short axis. Mildly enlarged right inguinal lymph nodes measure up to 2.5 x 2.0 cm. There are no pathologically enlarged upper abdominal, mesenteric, or pelvic sidewall lymph nodes. Pelvic viscera: The bladder, prostate, and seminal vesicles are normal as visualized. There is evidence of left inguinal herniorrhaphy. Skeletal structures: The skeletal structures are osteopenic. There is mild lumbosacral spondylosis. No lytic or blastic lesions are seen. IMPRESSION: 1. There are no acute infectious or inflammatory findings in the abdomen or pelvis. 2. Moderate sigmoid diverticulosis without CT evidence of acute diverticulitis. 3. Hepatomegaly and severe hepatic steatosis. 4. Splenomegaly. 5. Cardiomegaly and trace pericardial effusion. 6. Numerous small metallic foreign bodies are identified in the left body wall, the left upper quadrant of the abdomen, the left lung, the spleen, and the left kidney. These are similar to previous. 7. Mildly enlarged retroperitoneal and right inguinal lymph nodes have not significantly changed from 12/06/2016 and are likely related to patient's known history of lymphoma. No progressive adenopathy is identified. 8. Additional findings as above. Electronically signed by: Philip Gomez M.D. 01/04/2017 5:20 PM Dictated Date/Time: 01/04/2017 5:09 PM The status of this report is Signed. Draft = Not yet reviewed or approved by Radiologist. Signed = Reviewed and approved by Radiologist. <AttendingPhy></AttendingPhy> <FamilyPhy>Nery Grace M.D.</FamilyPhy> < PrimaryPhy>Nery Grace M.D.</PrimaryPhy> <UnitNumber>[id number]</UnitNumber> < VisitNumber>[id number]</VisitNumber> <PatientName>ANNELE Dusty</PatientName> <DateOfBirth>1955</DateOfBirth> <Location>[facility]</Location> <ServiceDate></ServiceDate> <MNE>ESINDI</MNE> <OrderingPhy>Ofelia Steiner PA-C</ OrderingPhy> <OrderingPhyMNE>no garay dr Laboratory Results 01/04/17 14:10 Red Blood Count 3.89, Mean Corpuscular Volume 85.9, Mean Corpuscular Hemoglobin 29.3, Mean Corpuscular Hemoglobin Concent 34.1, Mean Platelet Volume 8.4, Neutrophils (%) (Auto) 92.2, Lymphocytes (%) (Auto) 4.8, Monocytes (%) (Auto) 1.7, Eosinophils (%) (Auto) 0.5, Basophils (%) (Auto) 0.2, Neutrophils # (Auto) 7.73, Lymphocytes # (Auto) 0.40, Monocytes # (Auto) 0.14, Eosinophils # (Auto) 0.04, Basophils # (Auto) 0.02 01/04/17 14:10 Test 01/04/17 14:10 01/04/17 14:15 01/04/17 17:46 White Blood Count 8.38 K/uL (4.8-10.8) Red Blood Count 3.89 M/uL (4.7-6.1) Hemoglobin 11.4 g/dL (14.0-18.0) Hematocrit 33.4 % (42-52) Mean Corpuscular Volume 85.9 fL (80-100) Mean Corpuscular Hemoglobin 29.3 pg (25-34) Mean Corpuscular Hemoglobin Concent 34.1 g/dl (32-36) Platelet Count 142 K/uL (130-400) Mean Platelet Volume 8.4 fL (7.4-10.4) Neutrophils (%) (Auto) 92.2 % Lymphocytes (%) (Auto) 4.8 % Monocytes (%) (Auto) 1.7 % Eosinophils (%) (Auto) 0.5 % Basophils (%) (Auto) 0.2 % Neutrophils # (Auto) 7.73 K/uL (1.4-6.5) Lymphocytes # (Auto) 0.40 K/uL (1.2-3.4) Monocytes # (Auto) 0.14 K/uL (0.11-0.59) Eosinophils # (Auto) 0.04 K/uL (0-0.5) Basophils # (Auto) 0.02 K/uL (0-0.2) RDW Standard Deviation 51.3 fL (36.4-46.3) RDW Coefficient of Variation 16.4 % (11.5-14.5) Immature Granulocyte % (Auto) 0.6 % Immature Granulocyte # (Auto) 0.05 K/uL (0.00-0.02) Toxic Granulation 1+ Anion Gap 9.0 mmol/L (3-11) Est Creatinine Clear Calc Drug Dose 109.3 ml/min Estimated GFR () 83.5 Estimated GFR (Non- 72.1 BUN/Creatinine Ratio 12.2 (10-20) Calcium Level 8.4 mg/dl (8.5-10.1) Magnesium Level 1.3 mg/dl (1.8-2.4) Total Bilirubin 1.1 mg/dl (0.2-1) Aspartate Amino Transf (AST/SGOT) 30 U/L (15-37) Alanine Aminotransferase (ALT/SGPT) 55 U/L (12-78) Alkaline Phosphatase 138 U/L (45-117) Total Protein 6.7 gm/dl (6.4-8.2) Albumin 3.1 gm/dl (3.4-5.0) Globulin 3.6 gm/dl (2.5-4.0) Albumin/Globulin Ratio 0.9 (0.9-2) Lipase 184 U/L (73-393) Hepatitis C Antibody Screen NEG (NEG) Bedside Lactic Acid Venous 4.22 mmol/L (0.90-1.70) Urine Color YELLOW Urine Appearance CLEAR (CLEAR) Urine pH 6.5 (4.5-7.5) Urine Specific [place] > 1.045 (1.000-1.030) Urine Protein TRACE (NEG) Urine Glucose (UA) NEG (NEG) Urine Ketones NEG (NEG) Urine Occult Blood NEG (NEG) Urine Nitrite NEG (NEG) Urine Bilirubin NEG (NEG) Urine Urobilinogen NEG (NEG) Urine Leukocyte Esterase NEG (NEG) Urine WBC (Auto) 1-5 /hpf (0-5) Urine RBC (Auto) 0-4 /hpf (0-4) Urine Hyaline Casts (Auto) 1-5 /lpf (0-5) Urine Epithelial Cells (Auto) 10-20 /lpf (0-5) Urine Bacteria (Auto) NEG (NEG) Medications Administered Medications (Trade) Dose Ordered Sig/Moose Route Start Time Stop Time Status Last Admin Dose Admin Sodium Chloride 1,000 ml @ 999 mls/hr Q1H1M ONCE IV 01/04/17 14:30 01/04/17 15:30 DC 01/04/17 14:30 999 MLS/HR Ondansetron HCl (Zofran 8mg Iv) 8 mg NOW ONCE IV 01/04/17 14:30 01/04/17 14:31 DC 01/04/17 14:30 8 MG Ipratropium [place] (Atrovent 0.02% 0.5MG/2.5ML Neb) 0.5 mg ONE STAT INH 01/04/17 14:28 01/04/17 14:29 DC 01/04/17 14:41 0.5 MG Levalbuterol (Xopenex 1.25MG/ 0.5ML Neb) 1.25 mg ONE STAT INH 01/04/17 14:29 01/04/17 14:30 DC 01/04/17 14:41 1.25 MG Magnesium Sulfate (Magnesium Sulfate) 1 gm NOW STAT IV 01/04/17 16:26 01/04/17 16:27 DC 01/04/17 16:33 1 GM Piperacillin Sod/ Tazobactam Sod (Zosyn Iv) 4.5 gm ONE ONCE IV 01/04/17 18:15 01/04/17 18:16 DC 01/04/17 18:15 4.5 GM Vancomycin HCl 2700 mg/Sodium Chloride 554 ml @ 200 mls/hr ONE ONCE IV 01/04/17 18:15 01/04/17 21:01 DC 01/04/17 18:25 200 MLS/HR Levofloxacin (Levaquin / D5W) 750 mg STK-MED ONCE .ROUTE 01/04/17 18:38 01/04/17 18:39 DC 01/04/17 18:45 750 MG Prochlorperazine Edisylate 10 mg/ Syringe 10 ml @ 5 mls/min NOW STAT IV 01/04/17 18:42 01/04/17 18:43 DC 01/04/17 19:42 5 MLS/MIN ED Course Patient was seen and examined Labs were obtained, and a saline lock was established Lactic acid and blood cultures were drawn The patient was hydrated with 1 L of normal saline and given a Xopenex/Atrovent DuoNeb Imaging was performed The patient was reassessed. He said that his breathing was slightly better. CT of abdomen and pelvis were ordered and reviewed. The findings were discussed with the patient. He was reassessed. He was given an additional dose of antiemetics. I ordered vancomycin, Levaquin and Zosyn We spoke with the [facility] hospitalist service, who agreed to admit the patient Medical Decision Differential diagnosis: Sepsis secondary to pneumonia, UTI, bowel ischemia, GI infection, COPD exacerbation, hyperemesis secondary to chemotherapy, dehydration This patient is a 61-year-old male that presented to the ED with complaints of nausea, vomiting, diarrhea, abdominal pain and respiratory symptoms. He is currently undergoing chemotherapy. There is concern for immunocompromise. He did have significant abdominal tenderness in addition to an elevated lactate, which prompted the CT of the abdomen and pelvis. I do however likely think that the patient has a developing pneumonia, which is probably causing his sepsis. Given his recent hospital stay, he is at risk for hospital acquired infection. He will require admission to the hospital for sepsis Impression Primary Impression: Atrial fibrillation with rapid ventricular response Additional Impressions: New onset atrial fibrillation Sepsis Departure Information Referrals Nery Grace M.D. (PCP) Patient Instructions My [facility] Problem Qualifiers
[2017-01-04 14:42] VITALS: PULSE 96; O2SAT 96
[2017-01-04 14:44] LABS: BUN/CREATININE RATIO 12.2 (10-20); CALCIUM 8.4 mg/dl (8.5-10.1); CREATININE 1.1 mg/dl (0.60-1.40); MAGNESIUM 1.3 mg/dl (1.8-2.4); POTASSIUM 3.6 mmol/L (3.5-5.1)
[2017-01-04 14:47] LABS: ALB/GLOB RATIO 0.9 (0.9-2)
[2017-01-04 15:29] LABS: BASO % 0.2 %; BASO ABS # 0.02 K/uL (0-0.2); COMPLETE YES; EOS % 0.5 %; IG% 0.6 %; LYMPH % 4.8 %; MONO % 1.7 %; NEUT % 92.2 %; TOXIC GRANULATION 1+
--- NOTE | 2017-01-04 15:33 | DIAGNOSTIC IMAGING REPORT ---
ABDOMEN 2 VIEWS CLINICAL HISTORY: Generalized abdominal pain. Vomiting. FINDINGS: Supine and erect abdominal radiograph are correlated with abdominal CT dated 12/06/2016. The examination is degraded by large body habitus. There is a nonobstructed abdominal bowel gas pattern. No evidence of intraperitoneal free air is seen. Numerous metallic foreign bodies are again seen projecting over the left abdomen. Postoperative change is noted in the left groin. No abnormal abdominal calcifications are identified. The bony structures appear intact noting lumbosacral spondylosis and mild scoliosis. IMPRESSION: Nonobstructed abdominal bowel gas pattern. Electronically signed by: Philip Gomez M.D. 01/04/2017 3:32 PM Dictated Date/Time: 01/04/2017 3:30 PM
--- NOTE | 2017-01-04 15:36 | DIAGNOSTIC IMAGING REPORT ---
TWO VIEW CHEST CLINICAL HISTORY: Atypical chest pain. FINDINGS: PA and lateral chest radiographs are compared to study dated 12/06/2016 and correlated with chest CT dated 09/09/2016. The examination is degraded by large body habitus. A right subclavian central venous infusion port is unchanged in position. The heart is enlarged and there is atherosclerotic calcification of the thoracic aorta. The pulmonary vascular structures noncongested. There is no airspace consolidation typical for pneumonia or large pleural effusion. Bibasilar atelectasis is observed. Because granuloma is again noted in the right upper lung. There is no pneumothorax. The skeletal structures are osteopenic. Degenerative change is noted in the thoracic spine. Numerous metallic foreign bodies are again seen projecting over the left chest. IMPRESSION: Cardiomegaly with no acute cardiopulmonary abnormality. Electronically signed by: Philip Gomez M.D. 01/04/2017 3:35 PM Dictated Date/Time: 01/04/2017 3:33 PM
[2017-01-04] MEDS ORDERED: MAGNESIUM SULFATE 1GM / D5W 1 GM BAG IV STA (16:26)
[2017-01-04] MEDS ORDERED: OPTIRAY 320 IV PRN (17:15)
--- NOTE | 2017-01-04 17:21 | DIAGNOSTIC IMAGING REPORT ---
CT SCAN OF THE ABDOMEN AND PELVIS WITH IV CONTRAST CLINICAL HISTORY: Generalized abdominal pain. Lymphoma. COMPARISON STUDY: Abdominal CT scans dated 12/06/2016 and 09/09/2016. PET/CT dated 11/03/2016. TECHNIQUE: Following the IV administration of 109 of Optiray 320, CT scan of the abdomen and pelvis was performed from the lung bases to the proximal femora. Images are reviewed in the axial, sagittal, and coronal planes. IV contrast was administered without complication. Automated dose control exposure was utilized. The examination is degraded by large body habitus, and by streak artifact from the body wall abutting the CT gantry. CT DOSE: 1843.27 mGy.cm FINDINGS: Lower chest: Emphysema is noted. The heart is enlarged and there is trace pericardial effusion. The coronary arteries are densely calcified. No airspace consolidation or pleural effusion is identified. Bibasilar scarring versus atelectasis is noted an similar to previous, right greater than left. Metallic foreign bodies are present in the left lower lobe. Liver: Evaluation of the liver is degraded by streak artifact. The contrast-enhanced liver is enlarged, measure over 20 cm in length. The liver demonstrates diffusely diminished attenuation consistent with hepatic steatosis. There is no intrahepatic or ductal dilatation. The hepatic veins and portal veins are patent. Gallbladder: Unremarkable. Spleen: The spleen is enlarged, measuring 16.3 cm in length. Metallic foreign bodies are noted in the spleen and the surrounding left upper quadrant soft tissues. There are small calcified splenic granulomas. Pancreas: Atrophic and grossly unremarkable. Adrenal glands: A 2.8 cm indeterminant right adrenal nodule is unchanged. The left adrenal gland is unremarkable. Kidneys: The contrast enhanced kidneys demonstrate mild cortical atrophy and are without hydronephrosis. The kidneys enhance symmetrically. A small metallic foreign body is noted in the left kidney. Abdominal vasculature: The abdominal aorta is normal in course and caliber noting moderate to advanced atherosclerotic calcification. Stomach and bowel: There is a small hiatal hernia. The stomach and duodenum otherwise normal in configuration. The small bowel and colon are normal in course and caliber. There is moderate sigmoid diverticulosis without CT evidence of acute diverticulitis. The appendix is well-visualized and normal. Peritoneum: There is no intraperitoneal free air or abdominal ascites. Lymphadenopathy: Mildly enlarged retroperitoneal lymph nodes have not significantly changed from 12/06/2016. A wire rope sales representative aortocaval node on image #20 and 28 measures 1.7 cm in short axis. Mildly enlarged right inguinal lymph nodes measure up to 2.5 x 2.0 cm. There are no pathologically enlarged upper abdominal, mesenteric, or pelvic sidewall lymph nodes. Pelvic viscera: The bladder, prostate, and seminal vesicles are normal as visualized. There is evidence of left inguinal herniorrhaphy. Skeletal structures: The skeletal structures are osteopenic. There is mild lumbosacral spondylosis. No lytic or blastic lesions are seen. IMPRESSION: 1. There are no acute infectious or inflammatory findings in the abdomen or pelvis. 2. Moderate sigmoid diverticulosis without CT evidence of acute diverticulitis. 3. Hepatomegaly and severe hepatic steatosis. 4. Splenomegaly. 5. Cardiomegaly and trace pericardial effusion. 6. Numerous small metallic foreign bodies are identified in the left body wall, the left upper quadrant of the abdomen, the left lung, the spleen, and the left kidney. These are similar to previous. 7. Mildly enlarged retroperitoneal and right inguinal lymph nodes have not significantly changed from 12/06/2016 and are likely related to patient's known history of lymphoma. No progressive adenopathy is identified. 8. Additional findings as above. Electronically signed by: Philip Gomez M.D. 01/04/2017 5:20 PM Dictated Date/Time: 01/04/2017 5:09 PM
[2017-01-04] MEDS ORDERED: PROCHLORPERAZINE 5 MG/ML 2 ML VIAL IV STA (17:59)
[2017-01-04] MEDS ORDERED: PIPERACILL/TAZOBAC IV 3.375 GM in DEXTROSE 5% 100ML 100 ML IV SCH (18:00)
[2017-01-04] MEDS ORDERED: VANCOMYCIN INJ 1,000 MG in SODIUM CHLORIDE 0.9% 250ML 250 ML IV SCH (18:00)
[2017-01-04] MEDS ORDERED: LEVOFLOXACIN / D5W 750 MG in PREMIXED IN D5W 100 ML IV SCH (18:00)
[2017-01-04 18:10] LABS: URINE APPEARANCE CLEAR (CLEAR); URINE BILIRUBIN NEG (NEG); URINE COLOR YELLOW; URINE NITRITE NEG (NEG); URINE PH 6.5 (4.5-7.5); URINE SPECIFIC GRAVITY > 1.045 (1.000-1.030); UROBILINOGEN NEG (NEG)
[2017-01-04] MEDS ORDERED: VANCOMYCIN INJ 2,700 MG in SODIUM CHLORIDE 0.9% 500ML 500 ML IV ONE (18:15)
[2017-01-04] MEDS ORDERED: PIPERACILLIN/TAZOBACTAM 4.5 GM/100ML D5W IV ONE (18:15)
[2017-01-04] MEDS ORDERED: LEVAQUIN 750MG / 150ML D5W ONE (18:38)
[2017-01-04] MEDS ORDERED: PROCHLORPERAZINE INJ 10 MG in SYRINGE 8 ML IV STA (18:42)
[2017-01-04 18:54] LABS: MANUAL MICROSCOPIC REQUIRED? NO; REVIEW REQ? NO
[2017-01-04] MEDS ORDERED: MAGNESIUM HYDROXIDE SUSP 30 ML UDC PO PRN (19:15)
[2017-01-04] MEDS ORDERED: POLYETHYLENE (MIRALAX) 17 GM PACK PO PRN (19:15)
[2017-01-04] MEDS ORDERED: IV FLUIDS COMPLETED PRN (19:15)
[2017-01-04] MEDS ORDERED: ENOXAPARIN 40 MG/0.4 ML SYR SC SCH (19:15)
[2017-01-04] MEDS ORDERED: ONDANSETRON INJ 2 MG/ML 2 ML VIAL IV PRN (19:15)
[2017-01-04] MEDS ORDERED: ALUMINUM/MAGNESIUM/SIMETH (MAALOX MAX) 30 ML UDC PO PRN (19:15)
[2017-01-04] MEDS ORDERED: GLUCOSE 40% GEL 15 GM TUBE PO PRN (20:30)
[2017-01-04] MEDS ORDERED: GLUCOSE 10 TABS/TUBE PO PRN (20:30)
[2017-01-04] MEDS ORDERED: DEXTROSE 50% 50 ML SYR IV PRN (20:30)
[2017-01-04] MEDS ORDERED: PROCHLORPERAZINE INJ 10 MG in SYRINGE 8 ML IV PRN (20:30)
[2017-01-04] MEDS ORDERED: GLUCAGON FOR INJ 1 MG VIAL SQ PRN (20:30)
--- NOTE | 2017-01-04 20:33 | History and Physical ---
History & Physical Date & Time of Service: Jan 04, 2017 at 20:03 Chief Complaint: Hard Breathing, Chemo Side Effect Primary Care Physician: Nery Grace M.D. History of Present Illness Source: patient, spouse, clinic records, hospital records This is a 61 y/o male with a history of atrial fibrillation, B cell lymphoma, COPD, DM II, h/o DVT, CAD, and anxiety who presented to the ED on 01/04 with nausea, vomiting, fevers, cough, and shortness of breath. The patient is a history of B-cell lymphoma and receives chemotherapy every other week. The patient's last cycle was done December 29-. The patient has had persistent nausea , vomiting, and central abdominal pain following chemotherapy, but he states that this is typical. He's been taking Zofran and Compazine at home without much relief. The last few days he developed a productive cough with yellow sputum and increased shortness of breath. The patient is on 4 L nasal cannula continuous at home. The patient was recently admitted for pneumonia, and he states that his symptoms now feel similar. He complains of intermittent fevers , chills, and sweats. He's also noticed more wheezing lately. His nausea and vomiting have improved since coming to the ED. He describes as central abdominal pain as an 8/10 aching pain, but states this is better than the last time he had chemo, after which he has very severe abdominal pain. The patient denies chest pain, palpitations, claudication, dysuria, hematuria, urinary retention, paralysis, weakness, numbness and tingling. Past Medical/Surgical History Medical Problems: (1) Anticoagulants,Lt,Current Use Status: Chronic (2) Atrial fibrillation with rapid ventricular response Status: Resolved (3) B-cell lymphoma Status: Chronic (4) Cellulitis and abscess of leg, except foot Status: Resolved (5) Chronic Atrial Fibrillation Status: Chronic (6) COPD (chronic obstructive pulmonary disease) Status: Chronic (7) COPD exacerbation Status: Resolved (8) Dependence On Supplemental Oxygen Status: Chronic (9) DVT (deep venous thrombosis) Status: Resolved (10) Facial contusion Status: Resolved (11) Fall Status: Resolved (12) Fracture of rib of left side Status: Resolved (13) Gout, Unspecified Status: Chronic (14) Hypertension Status: Chronic (15) Hypoxemia Status: Resolved (16) Hypoxia Status: Resolved (17) Injury of left leg Status: Resolved (18) Injury of left lower arm Status: Resolved (19) New onset atrial fibrillation Status: Resolved (20) Obstructive Sleep Apnea (Adult) (Pediatric) Status: Chronic (21) Traumatic closed fracture of one rib of left side with minimal displacement Status: Resolved Chronic respiratory failure-on 4 L of oxygen at all times Diabetes mellitus type 2 Family History Cancer Lung disease Social History Smoking Status: Former Smoker Smokeless Tobacco Use: No Alcohol Use: none Drug Use: none Marital Status: Housing status: lives with significant other Occupational Status: employed Multi-Drug Resistant Organisms History of MDRO: No Allergies Coded Allergies: Aspirin (Verified Allergy, Severe, ANAPHYLAXIS, 10/28/16) Ibuprofen (Verified Allergy, Intermediate, HIVES, 10/28/16) Acetaminophen (Verified Allergy, Mild, HIVES, 10/28/16) Home Medications Scheduled Budesonide (Inhalation) (Pulmicort), 2 ML NEB BID Diltiazem Hcl Extended Release (Diltiazem Hcl Er), 240 MG PO QAM Fish Oil (Fish Oil), 2 CAP PO DAILY Furosemide (Furosemide), 40 MG PO DAILY Furosemide (Furosemide), 20 MG PO Q2D Gabapentin (Gabapentin), 300 MG PO QPM Gemcitabine Hcl (Gemcitabine), IV BIWEEKLY Home O2 Therapy (Oxygen), 4 LITER NA CONTINOUS Insulin Glargine (Lantus Solostar), 6 UNITS SC DAILY Lactobacillus Acidophilus (Floranex), 4 TAB PO BID Magnesium Oxide (Magnesium-Oxide), 400 MG PO BID Metoprolol Tartrate (Metoprolol Tartrate), 50 MG PO BID Ocuvite Preservision (Ocuvite Preservision), 2 TABS PO DAILY Oxaliplatin (Oxaliplatin), Unknown Dose IV BIWEEKLY Potassium Chloride (Klor-Con M20), 20 MEQ PO DAILY Rituximab (Rituxan), Unknown Dose IV BIWEEKLY Rivaroxaban (Xarelto), 20 MG PO PM Umeclidinium-Vilanterol (Anoro Ellipta 62.5-25 Mcg/INH), 1 PUFF INH QAM Vancomycin Hcl (Vancomycin), 125 MG PO QID Scheduled PRN Amoxicillin & Pot Clavulanate (Amoxicillin/Clavulanate P), 1 TAB PO BID PRN for COPD Rescue Kit Ipratropium-Albuterol (Duoneb), 1 TREATMENT INH QID PRN for COPD Ondansetron (Ondansetron HCl), 8 MG PO Q8 PRN for Nausea Prednisone (Prednisone), 40 MG PO UD PRN for COPD Rescue Kit Prochlorperazine Maleate (Prochlorperazine Maleate), 10 MG PO Q8H PRN for nausea Review of Systems Constitutional: + fever, + chills, + sweats Eyes: No worsening of vision, No eye pain, No diplopia ENT: No hearing loss, No sore throat, No trouble swallowing Respiratory: + cough, + sputum, + wheezing, + shortness of breath Cardiovascular: No chest pain, No claudication, No palpitations Abdomen: + pain, + nausea, + vomiting, + diarrhea, No GI bleeding Musculoskeletal: No joint pain, No muscle pain, No swelling Genitourinary - Male: No hematuria, No dysuria, No urinary retention Neurologic: No paralysis, No weakness, No numbness/tingling Integumentary: No rash, No itch, No color change Physical Exam Vital Signs Date Time Temp Pulse Resp B/P (MAP) Pulse Ox O2 Delivery O2 Flow Rate FiO2 01/04/17 18:51 81 01/04/17 18:45 83 18 104/60 96 Nasal Cannula 3.0 01/04/17 17:07 89 18 102/68 96 Nasal Cannula 4.0 01/04/17 15:54 87 18 126/74 96 Room Air 01/04/17 14:42 96 18 96 Nasal Cannula 4.0 01/04/17 14:27 90 01/04/17 14:19 99 Nasal Cannula 4.0 01/04/17 14:16 99 Nasal Cannula 4.0 01/04/17 13:46 39.0 89 18 111/67 99 Nasal Cannula 4.0 General appearance: +Morbidly obese. Well-developed, well-nourished, no apparent distress Head: Normocephalic, atraumatic Eyes: Normal inspection, PERRL, EOMI ENT: Normal ENT inspection, hearing grossly normal, pharynx normal Neck: Supple, no JVD, trachea midline Respiratory/Chest: +Crackles in bases bilaterally, L>R. Normal breath sounds, no respiratory distress Cardiovascular: +Irregularly irregular, rate controlled. No gallop, no murmur Abdomen/GI: +Mild diffuse tenderness, most marked in umbilical region. Normal bowel sounds, soft Extremities/Musculoskeletal: Normal inspection, no calf tenderness, no pedal edema Neurological/Psych: Alert, normal mood/affect, oriented x 3 Skin: Normal color, warm/dry, no rash Diagnostics Laboratory Results Results Past 24 Hours Test 01/04/17 14:10 01/04/17 14:15 01/04/17 17:46 01/04/17 19:01 Range/Units White Blood Count 8.38 4.8-10.8 K/uL Red Blood Count 3.89 4.7-6.1 M/uL Hemoglobin 11.4 14.0-18.0 g/dL Hematocrit 33.4 42-52 % Mean Corpuscular Volume 85.9 80-100 fL Mean Corpuscular Hemoglobin 29.3 25-34 pg Mean Corpuscular Hemoglobin Concent 34.1 32-36 g/dl Platelet Count 142 130-400 K/uL Mean Platelet Volume 8.4 7.4-10.4 fL Neutrophils (%) (Auto) 92.2 % Lymphocytes (%) (Auto) 4.8 % Monocytes (%) (Auto) 1.7 % Eosinophils (%) (Auto) 0.5 % Basophils (%) (Auto) 0.2 % Neutrophils # (Auto) 7.73 1.4-6.5 K/uL Lymphocytes # (Auto) 0.40 1.2-3.4 K/uL Monocytes # (Auto) 0.14 0.11-0.59 K/uL Eosinophils # (Auto) 0.04 0-0.5 K/uL Basophils # (Auto) 0.02 0-0.2 K/uL RDW Standard Deviation 51.3 36.4-46.3 fL RDW Coefficient of Variation 16.4 11.5-14.5 % Immature Granulocyte % (Auto) 0.6 % Immature Granulocyte # (Auto) 0.05 0.00-0.02 K/uL Toxic Granulation 1+ Sodium Level 133 136-145 mmol/L Potassium Level 3.6 3.5-5.1 mmol/L Chloride Level 94 98-107 mmol/L Carbon Dioxide Level 30 21-32 mmol/L Anion Gap 9.0 3-11 mmol/L Blood Urea Nitrogen 13 7-18 mg/dl Creatinine 1.10 0.60-1.40 mg/dl Est Creatinine Clear Calc Drug Dose 109.3 ml/min Estimated GFR () 83.5 Estimated GFR (Non- 72.1 BUN/Creatinine Ratio 12.2 10-20 Random Glucose 222 70-99 mg/dl Calcium Level 8.4 8.5-10.1 mg/dl Magnesium Level 1.3 1.8-2.4 mg/dl Total Bilirubin 1.1 0.2-1 mg/dl Aspartate Amino Transf (AST/SGOT) 30 15-37 U/L Alanine Aminotransferase (ALT/SGPT) 55 12-78 U/L Alkaline Phosphatase 138 45-117 U/L Total Protein 6.7 6.4-8.2 gm/dl Albumin 3.1 3.4-5.0 gm/dl Globulin 3.6 2.5-4.0 gm/dl Albumin/Globulin Ratio 0.9 0.9-2 Lipase 184 73-393 U/L Bedside Lactic Acid Venous 4.22 0.90-1.70 mmol/L Urine Color YELLOW Urine Appearance CLEAR CLEAR Urine pH 6.5 4.5-7.5 Urine Specific [place] > 1.045 1.000-1.030 Urine Protein TRACE NEG Urine Glucose (UA) NEG NEG Urine Ketones NEG NEG Urine Occult Blood NEG NEG Urine Nitrite NEG NEG Urine Bilirubin NEG NEG Urine Urobilinogen NEG NEG Urine Leukocyte Esterase NEG NEG Urine WBC (Auto) 1-5 0-5 /hpf Urine RBC (Auto) 0-4 0-4 /hpf Urine Hyaline Casts (Auto) 1-5 0-5 /lpf Urine Epithelial Cells (Auto) 10-20 0-5 /lpf Urine Bacteria (Auto) NEG NEG Microbiology Results 01/04/17 Blood Culture, Received Pending 01/04/17 Blood Culture, Received Pending Diagnostic Radiology Reviewed the following studies and agree with interpretation as follows: Patient Name: LE RODRÍGUEZ Unit Number: [id number] Dictated: 01/04/171532 Transcribed: 01/04/171532 EV Printed Date/Time: [~ rep prt dt]/[~ rep prt tm] [~ rep ct labl] - [~ rep ct ivnm] [facility] [place] [place] [address] Dictated: 07/04/17 1533 Transcribed: 01/04/171532 EV Printed Date/Time: [~ rep prt dt]/[~ rep prt tm] [~ rep ct labl] - [~ rep ct ivnm] Patient: LE RODRÍGUEZ Address1: [address] [place] [address] Rec: [id number] Address2: Acct ID: [id number] [facility] Zip: [place] [id number] Date: 1955 Sex: M Room/Bed: Ref Phy: Nery Grace M.D. SC: OTILIA Att Phy: Report #: [id number] Carole Phy: Nery Grace M.D. Test: CXR Admit Phy: Intern: SCOTT Interpreting Phy: Philip Gomez M.D. Diagnosis: HARD BREATHING, CHEMO SIDE EFFECT Ordering Phy: Ofelia Steiner PA-C Service Date: 01/04/17 Admit Date: 01/04/17 MNE: PWRSCRIBE CONF: DICTATED BY: Philip Gomez M.D.]] CC: Savage Salter M.D. Hays, Amy L., M.D. Urban, Angela P., PA-C Endcc: [~ rep ct add3]] TWO VIEW CHEST CLINICAL HISTORY: Atypical chest pain. FINDINGS: PA and lateral chest radiographs are compared to study dated 12/06/2016 and correlated with chest CT dated 09/09/2016. The examination is degraded by large body habitus. A right subclavian central venous infusion port is unchanged in position. The heart is enlarged and there is atherosclerotic calcification of the thoracic aorta. The pulmonary vascular structures noncongested. There is no airspace consolidation typical for pneumonia or large pleural effusion. Bibasilar atelectasis is observed. Because granuloma is again noted in the right upper lung. There is no pneumothorax. The skeletal structures are osteopenic. Degenerative change is noted in the thoracic spine. Numerous metallic foreign bodies are again seen projecting over the left chest. IMPRESSION: Cardiomegaly with no acute cardiopulmonary abnormality. Electronically signed by: Philip Gomez M.D. 01/04/2017 3:35 PM Dictated Date/Time: 01/04/2017 3:33 PM The status of this report is Signed. Draft = Not yet reviewed or approved by Radiologist. Signed = Reviewed and approved by Radiologist. <AttendingPhy></AttendingPhy> <FamilyPhy>Nery Grace M.D.</FamilyPhy> < PrimaryPhy>Nery Grace M.D.</PrimaryPhy> <UnitNumber>[id number]</UnitNumber> < VisitNumber>[id number]</VisitNumber> <PatientName>LE RODRÍGUEZ</PatientName> <DateOfBirth>1955</DateOfBirth> <Location>C.EDB</Location> <ServiceDate></ServiceDate> <MNE>ESINDI</MNE> <OrderingPhy>Ofelia Steiner PA-C</ OrderingPhy> <OrderingPhyMNE>f rep ord dr crockett</OrderingPhyMNE> <DictatingPhyMNE> f rep dict dr crockett</DictatingPhyMNE> <CCListMNE>f rep ct mne</CCListMNE> < AdmittingPhyMNE>f pt admit dr crockett</AdmittingPhyMNE> <AttendingPhyMNE>f pt attend dr crockett</AttendingPhyMNE> <ConsultingPhyMNE>f pt consult dr crockett</ConsultingPhyMNE> <FamilyPhyMNE>f pt fam dr crockett</FamilyPhyMNE> <OtherPhyMNE>f pt other dr crockett</OtherPhyMNE> < PrimaryPhyMNE>f pt prim care dr crockett</PrimaryPhyMNE> <ReferringPhyMNE>f pt referring dr crockett</ReferringPhyMNE> Patient Name: LE RODRÍGUEZ Unit Number: [id number] Dictated: 01/04/171529 Transcribed: 01/04/171529 EV Printed Date/Time: [~ rep prt dt]/[~ rep prt tm] [~ rep ct labl] - [~ rep ct ivnm] [facility] [place] [address] Dictated: 01/04/171529 Transcribed: 01/04/17 1530 EV Printed Date/Time: [~ rep prt dt]/[~ rep prt tm] [~ rep ct labl] - [~ rep ct ivnm] Patient: LE RODRÍGUEZ Address1: [address] [place] [address] Rec: [id number] Address2: Acct ID: [id number] [facility] Zip: [place] [id number] Date: 1955 Sex: M Room/Bed: Ref Phy: Nery Grace M.D. SC: ROULAB Att Phy: Report #: [id number] Carole Phy: Nery Grace M.D. Test: ABD2 Admit Phy: Intern: SCOTT Interpreting Phy: Philip Gomez M.D. Diagnosis: HARD BREATHING, CHEMO SIDE EFFECT Ordering Phy: Ofelia Steiner PA-C Service Date: 01/04/17 Admit Date: 01/04/17 MNE: PWRSCRIBE CONF: DICTATED BY: Philip Gomez M.D.]] CC: Savage Salter M.D. Hays, Amy L., M.D. Urban, Angela P., PA-C Endcc: [~ rep ct add3]] ABDOMEN 2 VIEWS CLINICAL HISTORY: Generalized abdominal pain. Vomiting. FINDINGS: Supine and erect abdominal radiograph are correlated with abdominal CT dated 12/06/2016. The examination is degraded by large body habitus. There is a nonobstructed abdominal bowel gas pattern. No evidence of intraperitoneal free air is seen. Numerous metallic foreign bodies are again seen projecting over the left abdomen. Postoperative change is noted in the left groin. No abnormal abdominal calcifications are identified. The bony structures appear intact noting lumbosacral spondylosis and mild scoliosis. IMPRESSION: Nonobstructed abdominal bowel gas pattern. Electronically signed by: Philip Gomez M.D. 01/04/2017 3:32 PM Dictated Date/Time: 01/04/2017 3:30 PM The status of this report is Signed. Draft = Not yet reviewed or approved by Radiologist. Signed = Reviewed and approved by Radiologist. <AttendingPhy></AttendingPhy> <FamilyPhy>Nery Grace M.D.</FamilyPhy> < PrimaryPhy>Nery Grace M.D.</PrimaryPhy> <UnitNumber>[id number]</UnitNumber> < VisitNumber>[id number]</VisitNumber> <PatientName>LE RODRÍGUEZ</PatientName> <DateOfBirth>1955</DateOfBirth> <Location>C.EDB</Location> <ServiceDate></ServiceDate> <MNE>ESINDI</MNE> <OrderingPhy>Ofelia Steiner PA-C</ OrderingPhy> <OrderingPhyMNE>f rep ord dr crockett</OrderingPhyMNE> <DictatingPhyMNE> f rep dict dr crockett</DictatingPhyMNE> <CCListMNE>f rep ct mne</CCListMNE> < AdmittingPhyMNE>f pt admit dr crockett</AdmittingPhyMNE> <AttendingPhyMNE>f pt attend dr crockett</AttendingPhyMNE> <ConsultingPhyMNE>f pt consult dr crockett</ConsultingPhyMNE> <FamilyPhyMNE>f pt fam dr crockett</FamilyPhyMNE> <OtherPhyMNE>f pt other dr crockett</OtherPhyMNE> < PrimaryPhyMNE>f pt prim care dr crockett</PrimaryPhyMNE> <ReferringPhyMNE>f pt referring dr crockett</ReferringPhyMNE> Patient Name: LE RODRÍGUEZ Unit Number: [id number] Dictated: 01/04/171708 Transcribed: 01/04/171708 EV Printed Date/Time: [~ rep prt dt]/[~ rep prt tm] [~ rep ct labl] - [~ rep ct ivnm] [facility] [place] [place] [address] Dictated: 01/04/171708 Transcribed: 01/04/171708 EV Printed Date/Time: [~ rep prt dt]/[~ rep prt tm] [~ rep ct labl] - [~ rep ct ivnm] Patient: LE RODRÍGUEZ Address1: [address] [place] [address] Rec: [id number] Address2: Acct ID: [id number] [facility] Zip: [place] [id number] Date: 1955 Sex: M Room/Bed: Ref Phy: Nery Grace M.D. SC: OTILIA Att Phy: Report #: [id number] Carole Phy: Nery Grace M.D. Test: APIV Admit Phy: Intern: PULAJM Interpreting Phy: Philip Gomez M.D. Diagnosis: HARD BREATHING, CHEMO SIDE EFFECT Ordering Phy: Ofelia Steiner PA-C Service Date: 01/04/17 Admit Date: 01/04/17 MNE: PWRSCRIBE CONF: DICTATED BY: Philip Gomez M.D.]] CC: Savage Salter M.D. Hays, Amy L., M.D. Urban, Angela P., PA-C Endcc: [~ rep ct add3]] CT SCAN OF THE ABDOMEN AND PELVIS WITH IV CONTRAST CLINICAL HISTORY: Generalized abdominal pain. Lymphoma. COMPARISON STUDY: Abdominal CT scans dated 12/06/2016 and 09/09/2016. PET/CT dated 11/03/2016. TECHNIQUE: Following the IV administration of 109 of Optiray 320, CT scan of the abdomen and pelvis was performed from the lung bases to the proximal femora. Images are reviewed in the axial, sagittal, and coronal planes. IV contrast was administered without complication. Automated dose control exposure was utilized. The examination is degraded by large body habitus, and by streak artifact from the body wall abutting the CT gantry. CT DOSE: 1843.27 mGy.cm FINDINGS: Lower chest: Emphysema is noted. The heart is enlarged and there is trace pericardial effusion. The coronary arteries are densely calcified. No airspace consolidation or pleural effusion is identified. Bibasilar scarring versus atelectasis is noted an similar to previous, right greater than left. Metallic foreign bodies are present in the left lower lobe. Liver: Evaluation of the liver is degraded by streak artifact. The contrast-enhanced liver is enlarged, measure over 20 cm in length. The liver demonstrates diffusely diminished attenuation consistent with hepatic steatosis. There is no intrahepatic or ductal dilatation. The hepatic veins and portal veins are patent. Gallbladder: Unremarkable. Spleen: The spleen is enlarged, measuring 16.3 cm in length. Metallic foreign bodies are noted in the spleen and the surrounding left upper quadrant soft tissues. There are small calcified splenic granulomas. Pancreas: Atrophic and grossly unremarkable. Adrenal glands: A 2.8 cm indeterminant right adrenal nodule is unchanged. The left adrenal gland is unremarkable. Kidneys: The contrast enhanced kidneys demonstrate mild cortical atrophy and are without hydronephrosis. The kidneys enhance symmetrically. A small metallic foreign body is noted in the left kidney. Abdominal vasculature: The abdominal aorta is normal in course and caliber noting moderate to advanced atherosclerotic calcification. Stomach and bowel: There is a small hiatal hernia. The stomach and duodenum otherwise normal in configuration. The small bowel and colon are normal in course and caliber. There is moderate sigmoid diverticulosis without CT evidence of acute diverticulitis. The appendix is well-visualized and normal. Peritoneum: There is no intraperitoneal free air or abdominal ascites. Lymphadenopathy: Mildly enlarged retroperitoneal lymph nodes have not significantly changed from 12/06/2016. A medical sales representative aortocaval node on image #20 and 28 measures 1.7 cm in short axis. Mildly enlarged right inguinal lymph nodes measure up to 2.5 x 2.0 cm. There are no pathologically enlarged upper abdominal, mesenteric, or pelvic sidewall lymph nodes. Pelvic viscera: The bladder, prostate, and seminal vesicles are normal as visualized. There is evidence of left inguinal herniorrhaphy. Skeletal structures: The skeletal structures are osteopenic. There is mild lumbosacral spondylosis. No lytic or blastic lesions are seen. IMPRESSION: 1. There are no acute infectious or inflammatory findings in the abdomen or pelvis. 2. Moderate sigmoid diverticulosis without CT evidence of acute diverticulitis. 3. Hepatomegaly and severe hepatic steatosis. 4. Splenomegaly. 5. Cardiomegaly and trace pericardial effusion. 6. Numerous small metallic foreign bodies are identified in the left body wall, the left upper quadrant of the abdomen, the left lung, the spleen, and the left kidney. These are similar to previous. 7. Mildly enlarged retroperitoneal and right inguinal lymph nodes have not significantly changed from 12/06/2016 and are likely related to patient's known history of lymphoma. No progressive adenopathy is identified. 8. Additional findings as above. Electronically signed by: Philip Gomez M.D. 01/04/2017 5:20 PM Dictated Date/Time: 01/04/2017 5:09 PM The status of this report is Signed. Draft = Not yet reviewed or approved by Radiologist. Signed = Reviewed and approved by Radiologist. <AttendingPhy></AttendingPhy> <FamilyPhy>Nery Grace M.D.</FamilyPhy> < PrimaryPhy>Nery Grace M.D.</PrimaryPhy> <UnitNumber>[id number]</UnitNumber> < VisitNumber>[id number]</VisitNumber> <PatientName>LE RODRÍGUEZ</PatientName> <DateOfBirth>1955</DateOfBirth> <Location>C.EDB</Location> <ServiceDate></ServiceDate> <MNE>ESINDI</MNE> <OrderingPhy>Ofelia Steiner PA-C</ OrderingPhy> <OrderingPhyMNE>f rep ord dr crockett</OrderingPhyMNE> <DictatingPhyMNE> f rep dict dr crockett</DictatingPhyMNE> <CCListMNE>f rep ct bon</CCListMNE> < AdmittingPhyMNE>f pt admit dr crockett</AdmittingPhyMNE> <AttendingPhyMNE>f pt attend dr crockett</AttendingPhyMNE> <ConsultingPhyMNE>f pt consult dr crockett</ConsultingPhyMNE> <FamilyPhyMNE>f pt fam dr crockett</FamilyPhyMNE> <OtherPhyMNE>f pt other dr crockett</OtherPhyMNE> < PrimaryPhyMNE>f pt prim care dr crockett</PrimaryPhyMNE> <ReferringPhyMNE>f pt referring dr crockett</ReferringPhyMNE> Impression Assessment and Plan 61 y/o male with a history of atrial fibrillation, B cell lymphoma, COPD, DM II , h/o DVT, CAD, and anxiety who presented to the ED on 01/04 with nausea, vomiting , fevers, cough, and shortness of breath. Patient febrile with temperature of 39C, vital signs otherwise stable. Chest x ray shows no acute disease. Abdominal x-ray shows no evidence of obstruction. CT of abdomen and pelvis shows no evidence of acute infection or inflammation but is positive for fatty liver, hepatomegaly, splenomegaly, and diverticulosis without acute diverticulitis. No leukocytosis. No neutropenia. Magnesium 1.3, received 1 g of magnesium sulfate in ED. Jkqin-ov-nxta lactic acid elevated at 4.22. Patient received nebulizers, Zosyn, vancomycin, and Levaquin in the ED. HCAP--pt recently admitted to [facility] w/pneumonia -Admit to telemetry -Zosyn, vancomcyin, and Levaquin 750 mg IV qd -Recheck lactic acid -DuoNebs QIDR and q2h prn SOB/wheezing -Sputum culture if able to obtain Hypomagnesemia -Give additional 1 gm mag sulfate IV x 1 -Continue to monitor Nausea/vomiting/abdominal pain--improving, pt wants to eat -Zofran 4 mg IV q6h prn N/V -Compazine 10 mg IV q8h prn N/V Atrial fibrillation--stable, rate controlled -Continue diltiazem 240 mg PO qd, metoprolol succinate 50 mg PO BID, and Xarelto 20 mg PO qd B cell lymphoma--receives chemo every other week COPD -Continue budesonide nebs BID, DuoNebs as above -O2 by protocol Diabetes mellitus--last HgbA1c checked on 12/08/16 was 9.5 -Insulin sliding scale -Check BSGs q ac and qhs -Continue gabapentin 300 mg PO qhs DVT prophylaxis -Xarelto -AUGUSTINE hose and SCDs Code Status -Level I, FULL RESUSCITATION STATUS This chart was completed in part utilizing [employer] Speech Voice Recognition software. Attempts were made to minimize the grammatical errors, random word insertions, pronoun errors and incomplete sentences. Any formal questions or concerns about the content, text or information contained within the body of this dictation should be directly addressed to the provider for clarification. Level of Care Telemetry Resuscitation Status FULL RESUSCITATION VTE Prophylaxis VTE Risk Assessment Done? Y/N: Yes Risk Level: Moderate Given or contraindicated: Other Anticoagulation (Xarelto), T.E.DNikky Stockings, SCD's Assessment and Plan Attending Addendum: I have physically seen and examined this patient, have directed the physician assistants medical extremities, and agree with the H&P as noted above with the following exceptions: NONE The patient is awake, well-developed and adequately nourished, alert and oriented 3, normocephalic and atraumatic, lying in bed and in mild pain acute distress. HEENT--PERRL, EOMI, mucous membranes and oropharynx dry. Neck--supple, no JVD or bruits, thyroid normal, trachea midline, no adenopathy. Heart--irregularly irregular, no murmurs, rubs or gallops. Lungs--coarse breath sounds bilaterally, mild respiratory distress, no accessory muscle use. Abdomen--normal bowel sounds and soft, nontender and nondistended, no hernias or masses, no organomegaly. Extremities--no cyanosis, clubbing or edema. There are good distal pulses b/l. Dermatologic--normal skin turgor, normal color, warm and dry, no abnormal lymph nodes, no rash. Neurologic--cranial nerves II through XII grossly intact. Rheumatologic--normal range of motion Psychiatric--normal affect. Assessment and Plan: 1. Pneumonia--we'll have to be concerned regarding resistant organisms due to the recent admission at [facility]. Admit to monitored bed. Place on vancomycin IV per renal dosing, Zosyn 3.375 mg IV every 8 hours, levofloxacin 750 mg IV daily, guaifenesin extended release 600 mg by mouth twice a day. Duonebs 4 times a day while awake and every 2 hours when necessary. Follow sputum culture, blood cultures and sensitivities. Zofran 4 mg IV every 6 hours when necessary.
[2017-01-04] MEDS: ALBUT/IPRATROP 3MG/0.5MG NEB 3 ML VIAL INH SCH (20:35)
[2017-01-04] MEDS: BUDESONIDE 0.5 MG/2 ML VIAL (PULMICORT) INH SCH (20:35)
[2017-01-04] MEDS ORDERED: MAGNESIUM SULFATE 1GM / D5W 1 GM in PREMIXED IN D5W 100 ML IV ONE (21:00)
[2017-01-04] MEDS ORDERED: VANCOMYCIN INJ 1,350 MG in SODIUM CHLORIDE 0.9% 250ML 250 ML IV STA (21:01)
[2017-01-04 21:05] VITALS: BP 114/72; PULSE 101; TEMP 37.4; O2SAT 92; Ht 180.3 cm; Wt 148.1 kg
[2017-01-04 21:15] VITALS: BP 114/72; PULSE 101; TEMP 37.4; O2SAT 92
--- NOTE | 2017-01-04 21:22 | Pharmacy Progress Note ---
Pharmacy Abx Initial Consult Date of Service Jan 04, 2017. Pharmacy Dosing Scope Date of Consult: 01/04/17 Consultation requested by: Gabriella Floyd PA-C Pharmacy is consulted to initiate Vancomycin and Zosyn IV dosing therapy, order appropriate labs and adjust drug dose/frequency. Subjective The patient is a 61 year old male admitted on Jan 04, 2017 at 19:10. Objective Height (Feet): 5 Height (Inches): 11.00 Weight (Kilograms): 161.000 Vital Signs (Past 12Hrs) Vital Signs Past 12 Hours Date Time Temp Pulse Resp B/P (MAP) Pulse Ox O2 Delivery O2 Flow Rate FiO2 01/04/17 20:30 39.0 91 19 126/72 91 Nasal Cannula 3.0 01/04/17 20:14 102 13 01/04/17 19:44 85 21 98 Nasal Cannula 3.0 01/04/17 19:14 87 20 01/04/17 18:51 81 01/04/17 18:45 83 18 104/60 96 Nasal Cannula 3.0 01/04/17 18:44 87 21 97 01/04/17 18:43 69/31 01/04/17 17:07 89 18 102/68 96 Nasal Cannula 4.0 01/04/17 16:44 87 15 98 01/04/17 16:28 102/68 01/04/17 16:14 87 18 96 01/04/17 15:54 87 18 126/74 96 Room Air 01/04/17 15:53 126/74 01/04/17 14:44 86 17 98 01/04/17 14:42 96 18 96 Nasal Cannula 4.0 01/04/17 14:27 90 01/04/17 14:19 99 Nasal Cannula 4.0 01/04/17 14:16 99 Nasal Cannula 4.0 01/04/17 13:46 39.0 89 18 111/67 99 Nasal Cannula 4.0 Lab Results (24Hrs) Laboratory Tests (24 Hours) Test 01/04/17 14:10 01/04/17 20:08 White Blood Count 8.38 K/uL (4.8-10.8) Red Blood Count 3.89 M/uL (4.7-6.1) L Hemoglobin 11.4 g/dL (14.0-18.0) L Hematocrit 33.4 % (42-52) L Mean Corpuscular Volume 85.9 fL (80-100) Mean Corpuscular Hemoglobin 29.3 pg (25-34) Mean Corpuscular Hemoglobin Concent 34.1 g/dl (32-36) Platelet Count 142 K/uL (130-400) Mean Platelet Volume 8.4 fL (7.4-10.4) Neutrophils (%) (Auto) 92.2 % Lymphocytes (%) (Auto) 4.8 % Monocytes (%) (Auto) 1.7 % Eosinophils (%) (Auto) 0.5 % Basophils (%) (Auto) 0.2 % Neutrophils # (Auto) 7.73 K/uL (1.4-6.5) H Lymphocytes # (Auto) 0.40 K/uL (1.2-3.4) L Monocytes # (Auto) 0.14 K/uL (0.11-0.59) Eosinophils # (Auto) 0.04 K/uL (0-0.5) Basophils # (Auto) 0.02 K/uL (0-0.2) Lactic Acid Level 3.1 mmol/L (0.4-2.0) *H Micro Results MRSA nasal swab also ordered Date/Time Source Procedure Growth Status 01/04/17 14:10 Blood Blood Culture Pending Received 01/04/17 14:05 Blood Blood Culture Pending Received Risk Factors for Resistance * Hospitalization for 48 hours or more within the past 90 days --> admitted <48 hours (12/07-12/08/16) * Immunocompromised (chronic steroid therapy, chemotherapy, immunomodulators) * Antimicrobial use within the last 90 days (Levaquin) Assessment & Plan Assessment 61 year old male with sepsis secondary to HCAP being empirically started on broad-spectrum antibiotics Plan Vancomycin IV * Loading dose: 1350 mg (~8 mg/kg) additional loading dose to 2700mg he received in the ED to equal ~25mg/kg * Maintenance dose: 2100 mg IV (13 mg/kg) every 10 hours * Goal trough level for pneumonia : 15 to 20 mcg/mL * Trough level ordered for 01/06/17 @ 0530 * A less than traditional dose has been selected due to likelihood of drug accumulation in obese patient Piperacillin/tazobactam * 4.5 g bolus administered over 30 minutes, then 4.5 g IV extended infusion every 8 hours for CrCl greater than 20 mL/min * Aggressive dosing selected due to critically ill status/BMI 35 or more/ history of cystic fibrosis. Pharmacy will continue to follow and will adjust dose/frequency as necessary. Thank you.
[2017-01-04] MEDS: GABAPENTIN 300 MG CAP PO SCH (21:35)
[2017-01-04] MEDS: METOPROLOL TARTRATE 50 MG TAB PO SCH (21:35)
[2017-01-04] MEDS: INSULIN ASPART 100 UNITS/ML 3 ML PEN SC SCH (21:38)
[2017-01-04] MEDS: RIVAROXABAN 20 MG TAB PO SCH (22:22)
[2017-01-05] VITALS (13 sets, daily range): BP systolic 106–128; BP diastolic 64–77; PULSE 71–98; TEMP 36–37; O2SAT 93–99
[2017-01-05 04:53] LABS: HEMATOCRIT 27.9 % (42-52); MEAN CELL VOLUME 85.8 fL (80-100); MEAN CORPUSCULAR HEMOGLOBIN 28.6 pg (25-34); MEAN CORPUSCULAR HGB CONC 33.3 g/dl (32-36); MEAN PLATELET VOLUME 8.3 fL (7.4-10.4); PLATELET COUNT 102 K/uL (130-400); RED BLOOD COUNT 3.25 M/uL (4.7-6.1); WHITE BLOOD COUNT 6.73 K/uL (4.8-10.8)
[2017-01-05 05:11] LABS: BUN/CREATININE RATIO 12.4 (10-20); CALCIUM 7.8 mg/dl (8.5-10.1); CREATININE 0.97 mg/dl (0.60-1.40); MAGNESIUM 1.7 mg/dl (1.8-2.4); POTASSIUM 3.3 mmol/L (3.5-5.1)
[2017-01-05 06:52] LABS: DOHLE BODIES 1+
[2017-01-05] MEDS: INSULIN ASPART 100 UNITS/ML 3 ML PEN SC SCH ×4 (07:00→20:40)
[2017-01-05] MEDS: BUDESONIDE 0.5 MG/2 ML VIAL (PULMICORT) INH SCH ×2 (07:13→19:53)
[2017-01-05] MEDS: ALBUT/IPRATROP 3MG/0.5MG NEB 3 ML VIAL INH SCH ×3 (07:13→19:53)
[2017-01-05] MEDS ORDERED: POTASSIUM CHLORIDE 10 MEQ TABCR PO STA (07:23)
[2017-01-05] MEDS: METOPROLOL TARTRATE 50 MG TAB PO SCH ×2 (08:05→20:38)
[2017-01-05] MEDS: DILTIAZEM HCL 120 MG EXT REL CAP PO SCH (08:05)
[2017-01-05] MEDS: CEROVITE ADV FORMULA TAB PO SCH (08:05)
[2017-01-05] MEDS: PIPERACILL/TAZOBAC IV 4.5 GM in DEXTROSE 5% 100ML 100 ML IV SCH ×3 (08:16)
[2017-01-05] MEDS ORDERED: FUROSEMIDE 20 MG TAB PO SCH (09:00)
[2017-01-05] MEDS ORDERED: FUROSEMIDE 40 MG TAB PO SCH (09:00)
[2017-01-05] MEDS ORDERED: VANCOMYCIN INJ 2,100 MG in SODIUM CHLORIDE 0.9% 500ML 500 ML IV SCH (10:00)
[2017-01-05] MEDS: MAGNESIUM OXIDE 400 MG TAB PO SCH ×2 (10:54→20:38)
--- NOTE | 2017-01-05 10:55 | Hospitalist Progress Note ---
Hospitalist Progress Note Date of Service Jan 05, 2017. Subjective Pt evaluation today including: conversation w/ patient, physical exam, chart review, lab review, review of studies, review of inpatient medication list Patient seen and evaluated. Tele reviewed with NSR. Stated he is feeling somewhat better compared to when he came in. No nausea or vomiting at this time. Tolerated diet this morning but reports only eating a small amount. Had dried blood in his moustache and states he nose did bleed a little from dryness Reports an intermittent cough with clear sputum. Verbalizes no other complaints Constitutional: No fever, No chills ENT: + problem reported (mild epistaxis from O2) Respiratory: + cough, + sputum (clear ), No shortness of breath Cardiovascular: No chest pain Abdomen: No pain, No nausea, No vomiting, No diarrhea, No constipation Musculoskeletal: No calf pain Male : No dysuria Medications Current Inpatient Medications Medications (Trade) Dose Ordered Sig/Moose Route Start Time Stop Time Status Last Admin Dose Admin Ioversol (Optiray 320) 109 ml UD PRN IV 01/04/17 17:15 01/08/17 17:14 Al Hydrox/Mg Hydrox/Simethicone (Maalox Max Susp) 15 ml Q4H PRN PO 01/04/17 19:15 02/03/17 19:14 Magnesium Hydroxide (Milk Of Magnesia Susp) 30 ml Q12H PRN PO 01/04/17 19:15 02/03/17 19:14 Ondansetron HCl (Zofran Inj) 4 mg Q6H PRN IV 01/04/17 19:15 02/03/17 19:14 Polyethylene (Miralax Powder Packet) 17 gm DAILY PRN PO 01/04/17 19:15 02/03/17 19:14 Piperacillin Sod/ Tazobactam Sod 4.5 gm/Dextrose 120 ml @ 30 mls/hr Q8H IV 01/05/17 00:00 01/11/17 00:00 01/05/17 08:16 30 MLS/HR Levofloxacin 750 mg/Prmx 150 ml @ 100 mls/hr Q24H IV 01/05/17 18:00 01/11/17 17:59 Miscellaneous (Iv Fluids Completed) 1 ea PRN PRN N/A 01/04/17 19:15 7/4/18 19:14 Diltiazem HCl (TIAzac CAP) 240 mg QAM PO 01/05/17 09:00 02/04/17 08:59 01/05/17 08:05 240 MG Furosemide (Lasix Tab) 20 mg Q2D@0900 PO 01/05/17 09:00 02/04/17 08:59 01/05/17 08:04 20 MG Furosemide (Lasix Tab) 40 mg DAILY PO 01/05/17 09:00 02/04/17 08:59 01/05/17 08:04 40 MG Gabapentin (Neurontin Cap) 300 mg QPM PO 01/04/17 21:00 02/03/17 20:59 01/04/17 21:35 300 MG Metoprolol Tartrate (Lopressor Tab) 50 mg BID PO 01/04/17 21:00 02/03/17 20:59 01/05/17 08:05 50 MG Multivitamins/ Minerals (Multivitamin W/ Minerals Tab) 1 tab DAILY PO 01/05/17 09:00 02/04/17 08:59 01/05/17 08:05 1 TAB Rivaroxaban (Xarelto Tab) 20 mg QDD PO 01/04/17 21:45 02/03/17 21:44 01/04/17 22:22 20 MG Budesonide (Pulmicort Respules 0.5MG/ 2ML Neb Soln) 0.5 mg BIDR INH 01/04/17 20:00 02/03/17 19:59 01/05/17 07:13 0.5 MG Albuterol/ Ipratropium (Duoneb) 3 ml QIDR INH 01/04/17 20:00 02/03/17 19:59 01/05/17 07:13 3 ML Prochlorperazine Edisylate 10 mg/ Syringe 10 ml @ 5 mls/min Q8H PRN IV 01/04/17 20:30 02/03/17 20:29 Insulin Aspart (novoLOG ASPART) SLIDING SCALE If C... ACHS SC 01/04/17 21:00 02/03/17 20:59 01/04/17 21:38 3 UNITS Glucose (Glucose 40% Gel) 15-30 GRAMS 15 GRAMS... UD PRN PO 01/04/17 20:30 02/03/17 20:29 Glucose (Glucose Chew Tab) 4-8 Tablets 4 Tabl... UD PRN PO 01/04/17 20:30 02/03/17 20:29 Dextrose (Dextrose 50% 50ML Syringe) 25-50ML OF 50% DW IV FOR... UD PRN IV 01/04/17 20:30 02/03/17 20:29 Glucagon (Glucagon Inj) 1 mg UD PRN SQ 01/04/17 20:30 02/03/17 20:29 Vancomycin HCl 2100 mg/Sodium Chloride 542 ml @ 200 mls/hr Q10H IV 01/05/17 10:00 01/11/17 09:59 Heparin Sodium (Porcine) (Heparin 100 Unit/ml 5ml Flush) 5 ml PRN PRN IV 01/05/17 00:15 02/04/17 00:14 Magnesium Oxide (Mag-Ox Tab) 400 mg BID PO 01/05/17 09:00 02/04/17 08:59 Objective Vital Signs Date Time Temp Pulse Resp B/P (MAP) Pulse Ox O2 Delivery O2 Flow Rate FiO2 01/05/17 08:02 36.0 90 24 120/76 (91) 93 Nasal Cannula 4.0 01/05/17 07:13 83 18 95 BiPAP/CPAP 4.0 01/05/17 04:02 36.6 98 19 120/77 (91) 98 CPAP 01/05/17 04:00 97 BiPAP 3.0 01/05/17 00:01 97 BiPAP 3.0 01/05/17 00:00 36.8 71 19 128/75 (92) 97 BiPAP 01/04/17 21:15 37.4 101 18 114/72 (86) 92 Nasal Cannula 3.0 01/04/17 21:05 37.4 101 18 114/72 92 Nasal Cannula 3.0 01/04/17 20:30 39.0 91 19 126/72 91 Nasal Cannula 3.0 01/04/17 20:14 102 13 01/04/17 19:44 85 21 98 Nasal Cannula 3.0 01/04/17 19:14 87 20 01/04/17 18:51 81 01/04/17 18:45 83 18 104/60 96 Nasal Cannula 3.0 01/04/17 18:44 87 21 97 01/04/17 18:43 69/31 01/04/17 17:07 89 18 102/68 96 Nasal Cannula 4.0 01/04/17 16:44 87 15 98 01/04/17 16:28 102/68 01/04/17 16:14 87 18 96 01/04/17 15:54 87 18 126/74 96 Room Air 01/04/17 15:53 126/74 01/04/17 14:44 86 17 98 01/04/17 14:42 96 18 96 Nasal Cannula 4.0 01/04/17 14:27 90 01/04/17 14:19 99 Nasal Cannula 4.0 01/04/17 14:16 99 Nasal Cannula 4.0 01/04/17 13:46 39.0 89 18 111/67 99 Nasal Cannula 4.0 Physical Exam General Appearance: WD/WN, no apparent distress, + obese Eyes: sclerae normal ENT: + pertinent finding (dried blood in moustache below L nare) Neck: supple, no JVD, trachea midline Respiratory/Chest: lungs clear, normal breath sounds, no respiratory distress, no accessory muscle use Cardiovascular: regular rate, rhythm, no gallop, no murmur, + pertinent finding (distant heart tones due to body habitus) Abdomen: normal bowel sounds, non tender, soft, + distended Extremities: no calf tenderness Neurologic/Psychiatric: alert, oriented x 3 Skin: normal color, warm/dry Laboratory Results Last 24 Hours Test 01/04/17 14:10 01/04/17 14:15 01/04/17 17:46 01/04/17 20:08 White Blood Count 8.38 K/uL Red Blood Count 3.89 M/uL Hemoglobin 11.4 g/dL Hematocrit 33.4 % Mean Corpuscular Volume 85.9 fL Mean Corpuscular Hemoglobin 29.3 pg Mean Corpuscular Hemoglobin Concent 34.1 g/dl Platelet Count 142 K/uL Mean Platelet Volume 8.4 fL Neutrophils (%) (Auto) 92.2 % Lymphocytes (%) (Auto) 4.8 % Monocytes (%) (Auto) 1.7 % Eosinophils (%) (Auto) 0.5 % Basophils (%) (Auto) 0.2 % Neutrophils # (Auto) 7.73 K/uL Lymphocytes # (Auto) 0.40 K/uL Monocytes # (Auto) 0.14 K/uL Eosinophils # (Auto) 0.04 K/uL Basophils # (Auto) 0.02 K/uL RDW Standard Deviation 51.3 fL RDW Coefficient of Variation 16.4 % Immature Granulocyte % (Auto) 0.6 % Immature Granulocyte # (Auto) 0.05 K/uL Blood Smear Review Toxic Granulation 1+ Dohle Bodies 1+ Sodium Level 133 mmol/L Potassium Level 3.6 mmol/L Chloride Level 94 mmol/L Carbon Dioxide Level 30 mmol/L Anion Gap 9.0 mmol/L Blood Urea Nitrogen 13 mg/dl Creatinine 1.10 mg/dl Est Creatinine Clear Calc Drug Dose 109.3 ml/min Estimated GFR () 83.5 Estimated GFR (Non- 72.1 BUN/Creatinine Ratio 12.2 Random Glucose 222 mg/dl Calcium Level 8.4 mg/dl Magnesium Level 1.3 mg/dl Total Bilirubin 1.1 mg/dl Aspartate Amino Transf (AST/SGOT) 30 U/L Alanine Aminotransferase (ALT/SGPT) 55 U/L Alkaline Phosphatase 138 U/L Total Protein 6.7 gm/dl Albumin 3.1 gm/dl Globulin 3.6 gm/dl Albumin/Globulin Ratio 0.9 Lipase 184 U/L Hepatitis C Antibody Screen NEG Bedside Lactic Acid Venous 4.22 mmol/L Urine Color YELLOW Urine Appearance CLEAR Urine pH 6.5 Urine Specific [place] > 1.045 Urine Protein TRACE Urine Glucose (UA) NEG Urine Ketones NEG Urine Occult Blood NEG Urine Nitrite NEG Urine Bilirubin NEG Urine Urobilinogen NEG Urine Leukocyte Esterase NEG Urine WBC (Auto) 1-5 /hpf Urine RBC (Auto) 0-4 /hpf Urine Hyaline Casts (Auto) 1-5 /lpf Urine Epithelial Cells (Auto) 10-20 /lpf Urine Bacteria (Auto) NEG Lactic Acid Level 3.1 mmol/L Test 01/04/17 20:53 01/05/17 04:30 01/05/17 06:55 01/05/17 10:26 Bedside Glucose 244 mg/dl 174 mg/dl White Blood Count 6.73 K/uL Red Blood Count 3.25 M/uL Hemoglobin 9.3 g/dL Hematocrit 27.9 % Mean Corpuscular Volume 85.8 fL Mean Corpuscular Hemoglobin 28.6 pg Mean Corpuscular Hemoglobin Concent 33.3 g/dl RDW Standard Deviation 52.3 fL RDW Coefficient of Variation 16.6 % Platelet Count 102 K/uL Mean Platelet Volume 8.3 fL Sodium Level 134 mmol/L Potassium Level 3.3 mmol/L Chloride Level 97 mmol/L Carbon Dioxide Level 30 mmol/L Anion Gap 7.0 mmol/L Blood Urea Nitrogen 12 mg/dl Creatinine 0.97 mg/dl Est Creatinine Clear Calc Drug Dose 123.9 ml/min Estimated GFR () 97.3 Estimated GFR (Non- 83.9 BUN/Creatinine Ratio 12.4 Random Glucose 178 mg/dl Calcium Level 7.8 mg/dl Magnesium Level 1.7 mg/dl Assessment and Plan 61 y/o male with a history of atrial fibrillation, B cell lymphoma, COPD, DM II , h/o DVT, CAD, and anxiety who presented to the ED on 01/04 with nausea, vomiting , fevers, cough, and shortness of breath. Patient febrile with temperature of 39C, vital signs otherwise stable. Chest x ray shows no acute disease. Abdominal x-ray shows no evidence of obstruction. CT of abdomen and pelvis shows no evidence of acute infection or inflammation but is positive for fatty liver, hepatomegaly, splenomegaly, and diverticulosis without acute diverticulitis. No leukocytosis. No neutropenia. Magnesium 1.3, received 1 g of magnesium sulfate in ED. Oefan-io-aehk lactic acid elevated at 4.22. Patient received nebulizers, Zosyn, vancomycin, and Levaquin in the ED. HCAP?: - Admitted in December and treated for PNA with Levaquin -- Not completely convinced this is a new PNA or even a continuation of his previous pneumonia - Lactic acid trending down and this may simply be elevated in the setting of B Cell lymphoma and chemotherapy - Obtain LDH and procalcitonin - Levaquin 750 mg IV daily, Zosyn 4.5 g IV Q8H, and Vanco per pharmacy dosing - Duonebs MOOSE and PRN Hypomagnesemia: IMPROVING - Replete as necessary and monitor Nausea/Vomiting/Abdominal Pain: IMPROVING - Tolerating diet but eating minimally - Zofran 4 mg IV q6h PRN and Compazine 10 mg IV q8h PRN Paroxysmal Atrial Fibrillation: Currently NSR - Diltiazem 240 mg daily, Metoprolol tartrate 50 mg BID, and Xarelto 20 mg daily B Cell Lymphoma: STABLE - Receives chemotherapy every other week - last dose last week - follows with Dr. Amaro Chronic Respiratory Failure 2/2 COPD without Exacerbation: Baseline O2 of 4 L - Budesonide nebs BID and Duonebs Diabetes Mellitus with Peripheral Neuropathy: HgbA1c 9.5 - SSI coverage - Gabapentin 300 mg PO qhs DVT Prophylaxis: Xarelto Code Status: FULL RESUSCITATION Disposition: Will await further labs and monitor for improved dietary intake Continued [facility] stay due to: multiple IV medications needed
[2017-01-05] MEDS ORDERED: PIPERACILL/TAZOBAC CONSULT ACTIVE PRN (12:15)
[2017-01-05] MEDS ORDERED: VANCOMYCIN CONSULT ACTIVE PRN (12:15)
[2017-01-05] MEDS: RIVAROXABAN 20 MG TAB PO SCH (17:02)
[2017-01-05] MEDS: VANCOMYCIN HCL 125 MG/2.5ML SOLN PO SCH ×2 (17:25→20:37)
[2017-01-05] MEDS: RASPBERRY SYRUP 5 ML UDP PO SCH ×2 (17:26→20:47)
[2017-01-05] MEDS ORDERED: LEVOFLOXACIN / D5W 750 MG in PREMIXED IN D5W 150 ML IV SCH (18:00)
[2017-01-05] MEDS: GABAPENTIN 300 MG CAP PO SCH (20:38)
[2017-01-05] MEDS: LACTOBACILLUS ACIDOPHILUS (FLORANEX) TAB PO SCH (20:50)
[2017-01-06] VITALS (8 sets, daily range): BP systolic 100–117; BP diastolic 61–76; PULSE 66–88; TEMP 36.8–37.7; O2SAT 84–98
[2017-01-06] MEDS ORDERED: VANCOMYCIN TROUGH ONE (05:30)
[2017-01-06 06:43] LABS: HEMATOCRIT 25.9 % (42-52); MEAN CELL VOLUME 84.9 fL (80-100); MEAN CORPUSCULAR HEMOGLOBIN 29.5 pg (25-34); MEAN CORPUSCULAR HGB CONC 34.7 g/dl (32-36); RED BLOOD COUNT 3.05 M/uL (4.7-6.1); WHITE BLOOD COUNT 6.36 K/uL (4.8-10.8)
[2017-01-06 07:07] LABS: BUN/CREATININE RATIO 9.3 (10-20); CALCIUM 8.1 mg/dl (8.5-10.1); CREATININE 1.1 mg/dl (0.60-1.40); MAGNESIUM 1.6 mg/dl (1.8-2.4); POTASSIUM 3.2 mmol/L (3.5-5.1)
[2017-01-06 07:17] LABS: MEAN PLATELET VOLUME 8.5 fL (7.4-10.4); PLATELET COUNT 74 K/uL (130-400); PLT ESTIMATE DECREASED
[2017-01-06] MEDS: ALBUT/IPRATROP 3MG/0.5MG NEB 3 ML VIAL INH SCH ×4 (07:31→19:11)
[2017-01-06] MEDS: BUDESONIDE 0.5 MG/2 ML VIAL (PULMICORT) INH SCH ×2 (07:31→19:11)
[2017-01-06] MEDS: SODIUM CHLORIDE 0.9% 1000ML 1,000 ML IV SCH ×2 (07:44→20:08)
[2017-01-06] MEDS ORDERED: MAGNESIUM SULFATE 1GM / D5W 1 GM in PREMIXED IN D5W 100 ML IV ONE (07:45)
[2017-01-06] MEDS: VANCOMYCIN HCL 125 MG/2.5ML SOLN PO SCH ×4 (07:46→20:09)
[2017-01-06] MEDS: RASPBERRY SYRUP 5 ML UDP PO SCH ×4 (07:47→20:09)
[2017-01-06] MEDS: LACTOBACILLUS ACIDOPHILUS (FLORANEX) TAB PO SCH ×2 (07:55→20:09)
[2017-01-06] MEDS: DILTIAZEM HCL 120 MG EXT REL CAP PO SCH (07:57)
[2017-01-06] MEDS: METOPROLOL TARTRATE 50 MG TAB PO SCH ×2 (07:57→20:10)
[2017-01-06] MEDS: CEROVITE ADV FORMULA TAB PO SCH (07:57)
[2017-01-06] MEDS: MAGNESIUM OXIDE 400 MG TAB PO SCH ×2 (07:57→20:10)
[2017-01-06] MEDS ORDERED: POTASSIUM CHLORIDE 10 MEQ TABCR PO ONE (08:00)
[2017-01-06] MEDS: INSULIN ASPART 100 UNITS/ML 3 ML PEN SC SCH ×4 (08:03→21:21)
--- NOTE | 2017-01-06 09:18 | DIAGNOSTIC IMAGING REPORT ---
TWO VIEW CHEST CLINICAL HISTORY: Cough. FINDINGS: PA and lateral chest radiographs are compared to study dated 01/04/2017 and correlated with chest CT dated 09/09/2016. The examination is degraded by large body habitus. A right subclavian central venous infusion port is unchanged in position. The heart is enlarged and there is atherosclerotic calcification of the thoracic aorta. The pulmonary vasculature is noncongested. There is no airspace consolidation typical for pneumonia or large pleural effusion. Bibasilar atelectasis is observed. A calcified granuloma is again noted in the right upper lung. There is no pneumothorax. The skeletal structures are osteopenic. Degenerative change is noted throughout the thoracic spine. Numerous metallic foreign bodies are again seen projecting over the left chest. IMPRESSION: Cardiomegaly with no acute cardiopulmonary abnormality. Electronically signed by: Philip Gomez M.D. 01/06/2017 9:17 AM Dictated Date/Time: 01/06/2017 9:16 AM
[2017-01-06] MEDS ORDERED: SACCHAROMYCES BOUL (FLORASTOR) 250 MG CAP PO ONE (11:30)
--- NOTE | 2017-01-06 17:02 | Hospitalist Progress Note ---
Hospitalist Progress Note Date of Service Jan 06, 2017. (Suad Duran PA-C) Subjective Pt evaluation today including: conversation w/ patient, conversation w/ family , physical exam, chart review, lab review, review of studies, review of inpatient medication list Patient seen and evaluated. No acute events overnight. Reporting only one BM a day that is diarrhea but is C. Diff positive Tolerating diet but has reduced appetite. Electrolytes were mildly altered and were repleted as necessary. Had multiple long visits today with the patient and his . First visit included Dr. Amaro. Patient has expressed frustration with chemotherapy as it has drastically impacted his quality of life to the point he is considering stopping chemotherapy. He is reporting increased irritability and does not directly state but suspect underlying depression. Discussed consideration for psychiatric consultation and he was joking but stated "I am not crazy" explained that that was not implied at all but that comfort and mental health is just as important as physical health during cancer. He expresses distrust of cancer doctors due to numerous family members who have due to cancer. Explained that cancer is not an easy condition to treat and unfortunately does not have good outcomes. Did express that he would benefit with a family meeting with his oncologist to discuss options of treatment and prognosis to better decide to continue treatment vs comfort measures. I think he would benefit from this meeting to be better informed to make decisions. I do suspect some underlying depression and may need continued teaching to reinforce. He stated that "I see children fighting with all they got and here I am giving up". Again expressed that in the stopping treatment for promote quality of life is not giving up and nothing to be ashamed by. I would recommend outpatient psychiatry consultation or recommendations for an antidepressant that can be safely administered in setting of active chemotherapy. Constitutional: No fever, No chills Respiratory: No shortness of breath Cardiovascular: No chest pain Abdomen: + diarrhea, No pain, No nausea, No vomiting, No constipation Musculoskeletal: No swelling, No calf pain Male : No dysuria (Suad Duran, SHANTEC) Medications Current Inpatient Medications Medications (Trade) Dose Ordered Sig/Moose Route Start Time Stop Time Status Last Admin Dose Admin Ioversol (Optiray 320) 109 ml UD PRN IV 01/04/17 17:15 01/08/17 17:14 Al Hydrox/Mg Hydrox/Simethicone (Maalox Max Susp) 15 ml Q4H PRN PO 01/04/17 19:15 02/03/17 19:14 Magnesium Hydroxide (Milk Of Magnesia Susp) 30 ml Q12H PRN PO 01/04/17 19:15 02/03/17 19:14 Ondansetron HCl (Zofran Inj) 4 mg Q6H PRN IV 01/04/17 19:15 02/03/17 19:14 01/05/17 16:58 4 MG Polyethylene (Miralax Powder Packet) 17 gm DAILY PRN PO 01/04/17 19:15 02/03/17 19:14 Miscellaneous (Iv Fluids Completed) 1 ea PRN PRN N/A 01/04/17 19:15 01/04/18 19:14 Diltiazem HCl (TIAzac CAP) 240 mg QAM PO 01/05/17 09:00 02/04/17 08:59 01/06/17 07:57 240 MG Furosemide (Lasix Tab) 20 mg Q2D@0900 PO 01/05/17 09:00 02/04/17 08:59 Future Hold 01/05/17 08:04 20 MG Furosemide (Lasix Tab) 40 mg DAILY PO 01/05/17 09:00 02/04/17 08:59 Future Hold 01/05/17 08:04 40 MG Gabapentin (Neurontin Cap) 300 mg QPM PO 01/04/17 21:00 02/03/17 20:59 01/05/17 20:38 300 MG Metoprolol Tartrate (Lopressor Tab) 50 mg BID PO 01/04/17 21:00 02/03/17 20:59 01/06/17 07:57 50 MG Multivitamins/ Minerals (Multivitamin W/ Minerals Tab) 1 tab DAILY PO 01/05/17 09:00 02/04/17 08:59 01/06/17 07:57 1 TAB Rivaroxaban (Xarelto Tab) 20 mg QDD PO 01/04/17 21:45 02/03/17 21:44 01/05/17 17:02 20 MG Budesonide (Pulmicort Respules 0.5MG/ 2ML Neb Soln) 0.5 mg BIDR INH 01/04/17 20:00 02/03/17 19:59 01/06/17 07:31 0.5 MG Albuterol/ Ipratropium (Duoneb) 3 ml QIDR INH 01/04/17 20:00 02/03/17 19:59 01/06/17 15:20 3 ML Prochlorperazine Edisylate 10 mg/ Syringe 10 ml @ 5 mls/min Q8H PRN IV 01/04/17 20:30 02/03/17 20:29 Insulin Aspart (novoLOG ASPART) SLIDING SCALE If C... ACHS SC 01/04/17 21:00 02/03/17 20:59 01/06/17 12:22 3 UNITS Glucose (Glucose 40% Gel) 15-30 GRAMS 15 GRAMS... UD PRN PO 01/04/17 20:30 02/03/17 20:29 Glucose (Glucose Chew Tab) 4-8 Tablets 4 Tabl... UD PRN PO 01/04/17 20:30 02/03/17 20:29 Dextrose (Dextrose 50% 50ML Syringe) 25-50ML OF 50% DW IV FOR... UD PRN IV 01/04/17 20:30 02/03/17 20:29 Glucagon (Glucagon Inj) 1 mg UD PRN SQ 01/04/17 20:30 02/03/17 20:29 Heparin Sodium (Porcine) (Heparin 100 Unit/ml 5ml Flush) 5 ml PRN PRN IV 01/05/17 00:15 02/04/17 00:14 Magnesium Oxide (Mag-Ox Tab) 400 mg BID PO 01/05/17 09:00 02/04/17 08:59 01/06/17 07:57 400 MG Vancomycin HCl (Vancomycin Oral Soln) 125 mg QID PO 01/05/17 17:00 01/19/17 16:59 01/06/17 11:55 125 MG Lactobacillus Acidophilus (Floranex Tab) 4 tab BID PO 01/05/17 20:00 02/04/17 20:59 01/06/17 07:55 4 TAB Raspberry (Raspberry Syrup 5ml Cup) 5 ml QID PO 01/05/17 17:00 01/19/17 16:59 01/06/17 11:54 5 ML Heparin Sodium (Porcine) (Heparin 100 Unit/ml 5ml Flush) 5 ml PRN PRN IV 01/06/17 05:00 02/05/17 04:59 Sodium Chloride 1,000 ml @ 80 mls/hr [id number] IV 01/06/17 07:15 01/07/17 20:44 01/06/17 07:44 80 MLS/HR Saccharomyces Boulardii (Florastor Cap) 250 mg DAILY PO 01/07/17 08:00 02/06/17 07:59 (Suad Duran PA-C) Objective Vital Signs Date Time Temp Pulse Resp B/P (MAP) Pulse Ox O2 Delivery O2 Flow Rate FiO2 01/06/17 16:00 Room Air 01/06/17 15:28 37.7 69 20 117/76 (90) 98 Nasal Cannula 4.0 01/06/17 15:19 74 18 97 Nasal Cannula 4.0 01/06/17 07:59 36.8 66 18 116/61 (79) 94 5.0 01/06/17 07:35 88 18 84 BiPAP/CPAP 4.0 01/06/17 07:30 Nasal Cannula 4.0 01/05/17 23:25 CPAP 01/05/17 23:07 36.8 72 16 106/64 (78) 97 CPAP 01/05/17 20:20 Nasal Cannula 4.0 01/05/17 19:53 88 18 98 Nasal Cannula 5.0 01/05/17 19:42 37.0 82 18 123/77 (92) 96 Nasal Cannula 5.0 (Suad Duran, PA-C) Physical Exam General Appearance: WD/WN, no apparent distress, + obese Eyes: sclerae normal Neck: supple, no JVD, trachea midline Respiratory/Chest: lungs clear, normal breath sounds, no respiratory distress, no accessory muscle use Cardiovascular: regular rate, rhythm, no gallop, no murmur Abdomen: normal bowel sounds, non tender, soft Extremities: no pedal edema Neurologic/Psychiatric: alert, oriented x 3 Skin: normal color, warm/dry (Suad Duran, TENZIN-C) Laboratory Results Last 24 Hours Test 01/05/17 17:04 01/05/17 20:28 01/06/17 05:20 01/06/17 07:54 Bedside Glucose 204 mg/dl 197 mg/dl 189 mg/dl White Blood Count 6.36 K/uL Red Blood Count 3.05 M/uL Hemoglobin 9.0 g/dL Hematocrit 25.9 % Mean Corpuscular Volume 84.9 fL Mean Corpuscular Hemoglobin 29.5 pg Mean Corpuscular Hemoglobin Concent 34.7 g/dl RDW Standard Deviation 51.5 fL RDW Coefficient of Variation 16.5 % Platelet Count 74 K/uL Mean Platelet Volume 8.5 fL Platelet Estimate DECREASED Sodium Level 133 mmol/L Potassium Level 3.2 mmol/L Chloride Level 96 mmol/L Carbon Dioxide Level 28 mmol/L Anion Gap 9.0 mmol/L Blood Urea Nitrogen 10 mg/dl Creatinine 1.10 mg/dl Est Creatinine Clear Calc Drug Dose 104.1 ml/min Estimated GFR () 83.5 Estimated GFR (Non- 72.1 BUN/Creatinine Ratio 9.3 Random Glucose 201 mg/dl Calcium Level 8.1 mg/dl Magnesium Level 1.6 mg/dl Test 01/06/17 11:50 01/06/17 16:28 Bedside Glucose 251 mg/dl 249 mg/dl (Suad Duran, PA-C) Assessment and Plan 61 y/o male with a history of atrial fibrillation, B cell lymphoma, COPD, DM II , h/o DVT, CAD, and anxiety who presented to the ED on 01/04 with nausea, vomiting , fevers, cough, and shortness of breath. Patient febrile with temperature of 39C, vital signs otherwise stable. Chest x ray shows no acute disease. Abdominal x-ray shows no evidence of obstruction. CT of abdomen and pelvis shows no evidence of acute infection or inflammation but is positive for fatty liver, hepatomegaly, splenomegaly, and diverticulosis without acute diverticulitis. No leukocytosis. No neutropenia. Magnesium 1.3, received 1 g of magnesium sulfate in ED. [id number] lactic acid elevated at 4.22. Patient received nebulizers, Zosyn, vancomycin, and Levaquin in the ED. Clostridium difficile: - Reporting on 1 diarrheal BM a day on average - This is first occurrence and patient is currently undergoing chemotherapy and previous ABx last month - Even though this is a first occurrence I would be more reluctant to continue po Vancomycin and a 10 day course may be adequate - consideration for possible prophylactic dosing in setting of chemotherapy Suspicion of HCAP: Unlikely and Tx was D/C'd - Admitted in December and treated for PNA with Levaquin - no signs of new occurrence or continuation of previous PNA - Lactic acid trending down and this may simply be elevated in the setting of B Cell lymphoma and chemotherapy - Levaquin 750 mg IV daily, Zosyn 4.5 g IV Q8H, and Vanco per pharmacy dosing D/ C'd - Duonebs MOOSE and PRN Hypomagnesemia: IMPROVING - Replete as necessary and monitor Nausea/Vomiting/Abdominal Pain: IMPROVING - Tolerating diet but eating minimally - Zofran 4 mg IV q6h PRN and Compazine 10 mg IV q8h PRN Paroxysmal Atrial Fibrillation: Currently NSR - Diltiazem 240 mg daily, Metoprolol tartrate 50 mg BID, and Xarelto 20 mg daily B Cell Lymphoma: STABLE - Receives chemotherapy every other week - last dose last week - follows with Dr. Amaro Chronic Respiratory Failure 2/2 COPD without Exacerbation: Baseline O2 of 4 L - Budesonide nebs BID and Duonebs Diabetes Mellitus with Peripheral Neuropathy: HgbA1c 9.5 - SSI coverage - Gabapentin 300 mg PO qhs DVT Prophylaxis: Xarelto Code Status: FULL RESUSCITATION Disposition: - Recommend possible implementation of antidepressant as an outpatient and will recommend in D/C summary to PCP - He is considering stopping chemotherapy but is going to think about it - recommend meeting with oncologist to discuss treatment options and prognosis -- If patient planning stop treatment - appropriate Palliative Care would be beneficial with progression to Hospice pending on overall prognosis -- Patient is conflicted by a reduce quality of life due to chemotherapy and wanting to continue treatment - Will hydrate overnight and monitor electrolytes - like D/C tomorrow Continued [facility] stay due to: multiple IV medications needed Discharge planning: home (Suad Duran, PAMarkellC) Reviewed: Pt Seen/Exam by Me (Laura Steele, ) History Did have some nausea with PO earlier today, but no emesis. Was eating dinner during discussion. No SOB, chest pain, abd pain. Agree with HPI/ROS as noted. (Laura Steele, DO) General Appearance: no apparent distress, obese Respiratory: normal breath sounds, no respiratory distress Cardiovascular: normal peripheral pulses, regular rate, rhythm Gastrointestinal: non tender, soft Extremities: non-tender, no pedal edema Neurologic/Psychiatric: alert, oriented x 3 Skin Characteristics: normal color, warm/dry (Laura Steele, DO) Assessment/Plan Agree with plan as outlined above Cdiff, improving with abx Monitor Expressed thoughts to Ms. Duran that suggest depression, but was not mentioned to me today. Will discuss with pt further tomorrow. Ongoing chemo as per onc (Laura Steele, DO)
[2017-01-06] MEDS: RIVAROXABAN 20 MG TAB PO SCH (17:43)
[2017-01-06] MEDS: GABAPENTIN 300 MG CAP PO SCH (20:11)
[2017-01-07 07:09] LABS: MEAN CELL VOLUME 85.1 fL (80-100); MEAN CORPUSCULAR HEMOGLOBIN 28.4 pg (25-34); MEAN CORPUSCULAR HGB CONC 33.3 g/dl (32-36); RED BLOOD COUNT 2.82 M/uL (4.7-6.1); WHITE BLOOD COUNT 4.71 K/uL (4.8-10.8)
[2017-01-07 07:16] LABS: MEAN PLATELET VOLUME 8.4 fL (7.4-10.4); PLATELET COUNT 51 K/uL (130-400)
[2017-01-07 07:27] VITALS: BP 99/64; PULSE 74; PULSE 81; TEMP 37.1; O2SAT 97
[2017-01-07] MEDS: ALBUT/IPRATROP 3MG/0.5MG NEB 3 ML VIAL INH SCH ×3 (07:27→15:26)
[2017-01-07] MEDS: BUDESONIDE 0.5 MG/2 ML VIAL (PULMICORT) INH SCH (07:28)
[2017-01-07 07:39] LABS: BUN/CREATININE RATIO 8.1 (10-20); CALCIUM 7.9 mg/dl (8.5-10.1); CREATININE 0.95 mg/dl (0.60-1.40); MAGNESIUM 1.9 mg/dl (1.8-2.4); POTASSIUM 3.3 mmol/L (3.5-5.1)
[2017-01-07] MEDS: METOPROLOL TARTRATE 50 MG TAB PO SCH (07:48)
[2017-01-07] MEDS ORDERED: SACCHAROMYCES BOUL (FLORASTOR) 250 MG CAP PO SCH (08:00)
[2017-01-07] MEDS: INSULIN ASPART 100 UNITS/ML 3 ML PEN SC SCH ×2 (08:41→11:43)
[2017-01-07] MEDS: LACTOBACILLUS ACIDOPHILUS (FLORANEX) TAB PO SCH (08:44)
[2017-01-07] MEDS: MAGNESIUM OXIDE 400 MG TAB PO SCH (08:46)
[2017-01-07] MEDS: CEROVITE ADV FORMULA TAB PO SCH (08:46)
[2017-01-07] MEDS: DILTIAZEM HCL 120 MG EXT REL CAP PO SCH (08:47)
[2017-01-07] MEDS: RASPBERRY SYRUP 5 ML UDP PO SCH ×2 (08:51→11:44)
[2017-01-07] MEDS: VANCOMYCIN HCL 125 MG/2.5ML SOLN PO SCH ×2 (08:51→11:44)
[2017-01-07] MEDS: SODIUM CHLORIDE 0.9% 1000ML 1,000 ML IV SCH (08:52)
[2017-01-07] MEDS ORDERED: POTASSIUM CHLORIDE 10 MEQ TABCR PO STA (09:24)
[2017-01-07] MEDS ORDERED: LCTX PO (09:34)
[2017-01-07] MEDS ORDERED: VANC5CAP PO (09:34)
[2017-01-07] MEDS ORDERED: CMP10 PO (09:34)
[2017-01-07] MEDS ORDERED: MGNO400 PO (09:34)
[2017-01-07] MEDS ORDERED: MCRK20 PO (09:40)
[2017-01-07] MEDS ORDERED: INSDGIPEN SC (09:51)
--- NOTE | 2017-01-07 09:51 | Discharge Instructions ---
Discharge Instructions Date of Service Jan 07, 2017. Admission Reason for Admission: Hcap(Healthcare-Associated Pneumonia) Discharge Discharge Diagnosis / Problem: Clostridium Difficle Discharge Goals Goal(s): Decrease discomfort, Improve function, Increase independence Activity Recommendations Activity Limitations: resume your previous activity . Instructions / Follow-Up Instructions / Follow-Up Clostridium difficile: - This is a bacteria that can form in the bowels that causes nausea, vomiting, diarrhea, and abdominal pain. It is important to continue your Vancomycin four times a day to finish a 10 day course. - Make sure to wash your hands and instruct family members to do so as well to help prevent spreading this. - Please discuss with your oncologist about possibly using this prophylactically for chemotherapy to prevent reoccurrence - Please take a probiotic. Low Magnesium and Low Potassium: - Will send you home with a prescription for supplements to help with this especially since you take Lasix (a water pill) Diabetes Mellitus: - Continue home Lantus 6 units daily and follow with your family doctor. - Please consume a low carbohydrate diet to promote good diabetes control Follow-Up: - Please keep your appointment with your family doctor for next week Current Hospital Diet Patient's current hospital diet: AHA Diet (Heart Healthy), Diabetes Type 2 Diet Discharge Diet Recommended Diet: AHA Diet (Heart Healthy), Diabetes Type 2 Diet Pending Studies Studies pending at discharge: no Laboratory Results Hemoglobin A1c Test 12/08/16 07:15 Range/Units Estimated Average Glucose 226 mg/dl Hemoglobin A1c 9.5 H 4.5-5.6 % Medical Emergencies . Who to Call and When: Medical Emergencies: If at any time you feel your situation is an emergency, please call 911 immediately. . Non-Emergent Contact Non-Emergency issues call your: Primary Care Provider Call Non-Emergent contact if: you have a fever, your pain is concerning you, you have any medication questions . . "Provider Documentation" section prepared by Suad Duran. . VTE Core Measure Inpt VTE Proph given/why not?: Other Anticoagulation (Xarelto), TSaad French, SCD's
--- NOTE | 2017-01-07 10:58 | Clinical Documentation Query ---
SKYLAR Willams : CLINICAL DOCUMENTATION QUERIES QUERY 1 OF 2 Please Document Present on Admission Status for - Enterocolitis due to Clostridium difficile ( x ) C. Difficile enteritis/colitis, POA ( ) C. Difficile enteritis/colitis, not POA QUERY 2 OF 2 Patient is a 61 year old male undergoing chemotherapy for B cell lymphoma. Current CBC demonstrates pancytopenia. If, in your clinical opinion, you suspect this is (possibly/likely) related to previously administered antineoplastic medications, consider documentation as suggested below as this directly impacts severity of illness, risk of mortality measures, and ultimately DRG assignment. Thank you. In your clinical opinion is this patient being managed for: ( x ) Antineoplastic chemotherapy induced pancytopenia ( ) Other explanation of clinical findings (Please Explain) ( ) Unable to determine (Please Define) ( ) Need to Discuss ( ) Not Agree The medical record reflects the following clinical findings, treatment, and risk factors. Clinical Indicators: Pancytopenia in the setting of chemotherapy Treatment: Monitoring with serial hematology Risk Factors: B cell lymphoma and associated chemotherapy Please clarify and document your clinical opinion in the progress notes and discharge summary. Terms such as "probable", "suspected", "likely", "questionable", "possible", or "still to be ruled out" are acceptable. IF IN AGREEMENT, YOU MUST DOCUMENT ABOVE DIAGNOSTIC STATEMENT IN DAILY PROGRESS NOTES AND DISCHARGE SUMMARY. This document is not part of the patient's record. Thank You, Jose Carter, PATRICIA [phone]
[2017-01-07 11:12] VITALS: PULSE 73; O2SAT 95
[2017-01-07 14:49] VITALS: BP 99/64; PULSE 73; TEMP 37.1; O2SAT 95
--- NOTE | 2017-01-07 16:01 | Discharge Summary ---
Discharge Summary Date of Service Jan 07, 2017. (Suad Duran PA-C) Discharge Summary Admission Date: Jan 05, 2017 at 13:38 Discharge Date: Jan 07, 2017 Discharge Disposition: Home Principal Diagnosis: Clostridium difficile Problems/Secondary Diagnoses: (1) Anticoagulants,Lt,Current Use Status: Chronic (2) B-cell lymphoma Status: Chronic (3) Chronic Atrial Fibrillation Status: Chronic (4) COPD (chronic obstructive pulmonary disease) Status: Chronic (5) Dependence On Supplemental Oxygen Status: Chronic (6) Gout, Unspecified Status: Chronic (7) Hypertension Status: Chronic (8) Obstructive Sleep Apnea (Adult) (Pediatric) Status: Chronic Procedures: TWO VIEW CHEST FINDINGS: PA and lateral chest radiographs are compared to study dated 01/04/2017 and correlated with chest CT dated 09/09/2016. The examination is degraded by large body habitus. A right subclavian central venous infusion port is unchanged in position. The heart is enlarged and there is atherosclerotic calcification of the thoracic aorta. The pulmonary vasculature is noncongested. There is no airspace consolidation typical for pneumonia or large pleural effusion. Bibasilar atelectasis is observed. A calcified granuloma is again noted in the right upper lung. There is no pneumothorax. The skeletal structures are osteopenic. Degenerative change is noted throughout the thoracic spine. Numerous metallic foreign bodies are again seen projecting over the left chest. IMPRESSION: Cardiomegaly with no acute cardiopulmonary abnormality. CT SCAN OF THE ABDOMEN AND PELVIS WITH IV CONTRAST FINDINGS: Lower chest: Emphysema is noted. The heart is enlarged and there is trace pericardial effusion. The coronary arteries are densely calcified. No airspace consolidation or pleural effusion is identified. Bibasilar scarring versus atelectasis is noted an similar to previous, right greater than left. Metallic foreign bodies are present in the left lower lobe. Liver: Evaluation of the liver is degraded by streak artifact. The contrast-enhanced liver is enlarged, measure over 20 cm in length. The liver demonstrates diffusely diminished attenuation consistent with hepatic steatosis. There is no intrahepatic or ductal dilatation. The hepatic veins and portal veins are patent. Gallbladder: Unremarkable. Spleen: The spleen is enlarged, measuring 16.3 cm in length. Metallic foreign bodies are noted in the spleen and the surrounding left upper quadrant soft tissues. There are small calcified splenic granulomas. Pancreas: Atrophic and grossly unremarkable. Adrenal glands: A 2.8 cm indeterminant right adrenal nodule is unchanged. The left adrenal gland is unremarkable. Kidneys: The contrast enhanced kidneys demonstrate mild cortical atrophy and are without hydronephrosis. The kidneys enhance symmetrically. A small metallic foreign body is noted in the left kidney. Abdominal vasculature: The abdominal aorta is normal in course and caliber noting moderate to advanced atherosclerotic calcification. Stomach and bowel: There is a small hiatal hernia. The stomach and duodenum otherwise normal in configuration. The small bowel and colon are normal in course and caliber. There is moderate sigmoid diverticulosis without CT evidence of acute diverticulitis. The appendix is well-visualized and normal. Peritoneum: There is no intraperitoneal free air or abdominal ascites. Lymphadenopathy: Mildly enlarged retroperitoneal lymph nodes have not significantly changed from 12/06/2016. A screening representative aortocaval node on image #20 and 28 measures 1.7 cm in short axis. Mildly enlarged right inguinal lymph nodes measure up to 2.5 x 2.0 cm. There are no pathologically enlarged upper abdominal, mesenteric, or pelvic sidewall lymph nodes. Pelvic viscera: The bladder, prostate, and seminal vesicles are normal as visualized. There is evidence of left inguinal herniorrhaphy. Skeletal structures: The skeletal structures are osteopenic. There is mild lumbosacral spondylosis. No lytic or blastic lesions are seen. IMPRESSION: 1. There are no acute infectious or inflammatory findings in the abdomen or pelvis. 2. Moderate sigmoid diverticulosis without CT evidence of acute diverticulitis. 3. Hepatomegaly and severe hepatic steatosis. 4. Splenomegaly. 5. Cardiomegaly and trace pericardial effusion. 6. Numerous small metallic foreign bodies are identified in the left body wall, the left upper quadrant of the abdomen, the left lung, the spleen, and the left kidney. These are similar to previous. 7. Mildly enlarged retroperitoneal and right inguinal lymph nodes have not significantly changed from 12/06/2016 and are likely related to patient's known history of lymphoma. No progressive adenopathy is identified. 8. Additional findings as above. (Suad Duarn PA-C) Medication Reconciliation New Medications: Potassium Chloride (Klor-Con M20) 20 Meq Tabcr 20 MEQ PO DAILY for 14 Days, #14 TABS Vancomycin Hcl (Vancomycin) 125 Mg Cap 125 MG PO QID for 7 Days, #30 TABS You had two doses today 01/07. Take one dose in the early afternoon and one at night. Then resume four times a day on 01/08 Lactobacillus Acidophilus (Floranex) 1 Tab Tab 4 TAB PO BID for 14 Days, #112 TAB Magnesium Oxide (Magnesium-Oxide) 400 Mg Tab 400 MG PO BID for 14 Days, #28 TAB Continued Medications: Amoxicillin & Pot Clavulanate (Amoxicillin/Clavulanate P) 1 Tab Tab 1 TAB PO BID PRN for COPD Rescue Kit for 10 Days, #20 TAB COPD RESCUE KIT Budesonide (Inhalation) (Pulmicort) 1 Mg/2 Ml Olga 2 ML NEB BID MIX WITH DUONEB TWICE DAILY Diltiazem Hcl Extended Release (Diltiazem Hcl Er) 120 Mg Cap 240 MG PO QAM Fish Oil (Fish Oil) 1 Gm Cap 2 CAP PO DAILY Furosemide (Furosemide) 40 Mg Tab 40 MG PO DAILY Furosemide (Furosemide) 20 Mg Tab 20 MG PO Q2D TAKE THIS MEDICATION IN ADDITION TO 40 MG DAILY DOSE EVERY OTHER DAY Gabapentin (Gabapentin) 300 Mg Cap 300 MG PO QPM Gemcitabine Hcl (Gemcitabine) 1 Gm/26.3 Ml Inj IV BIWEEKLY Home O2 Therapy (Oxygen) Gas 4 LITER NA CONTINOUS 5 LITERS WHEN ACTIVE Insulin Glargine (Lantus Solostar) 100 Unit/Ml Inj 6 UNITS SC DAILY Ipratropium-Albuterol (Duoneb) 3 Ml Nebu 1 TREATMENT INH QID PRN for COPD, INHA Metoprolol Tartrate (Metoprolol Tartrate) 50 Mg Tab 50 MG PO BID Ocuvite Preservision (Ocuvite Preservision) 1 Tab Tab 2 TABS PO DAILY, TAB Ondansetron (Ondansetron HCl) 8 Mg Tab 8 MG PO Q8 PRN for Nausea Oxaliplatin (Oxaliplatin) 100 Mg Inj Unknown Dose IV BIWEEKLY Prednisone (Prednisone) 20 Mg Tab 40 MG PO UD PRN for COPD Rescue Kit COPD RESCUE KIT FOLLOWS: TAKE 2 TABLETS (40 MG) DAILY FOR 5 DAYS Prochlorperazine Maleate (Prochlorperazine Maleate) 10 Mg Tab 10 MG PO Q8H PRN for nausea for 14 Days, #42 TAB (This prescription has been renewed) Rituximab (Rituxan) 10 Mg/Ml Inj Unknown Dose IV BIWEEKLY Rivaroxaban (Xarelto) 20 Mg Tab 20 MG PO PM Umeclidinium-Vilanterol (Anoro Ellipta 62.5-25 Mcg/INH) 1 Aer Aer 1 PUFF INH QAM Discontinued Medications: Azithromycin (Zithromax) 250 Mg Tab 250 MG PO MWF Discharge Exam Review of Systems: Constitutional: No fever, No chills ENT: No nasal symptoms, No sore throat, No trouble swallowing Respiratory: No shortness of breath Cardiovascular: No chest pain Abdomen: + diarrhea, No pain, No nausea, No vomiting, No constipation, No GI bleeding Genitourinary - Male: No dysuria Integumentary: No rash Physical Exam: General Appearance: WD/WN, no apparent distress, + obese Eyes: sclerae normal ENT: hearing grossly normal Neck: supple, no JVD, trachea midline Respiratory/Chest: lungs clear, normal breath sounds, no respiratory distress, no accessory muscle use Cardiovascular: regular rate, rhythm, no gallop, no murmur, + irregularly irregular Abdomen / GI: normal bowel sounds, non tender, soft Neurologic/Psychiatric: alert, oriented x 3 Skin: normal color, warm/dry (Suad Duran, PAMarkellC) Hospital Course ADMISSION: This is a 61 y/o male with a history of atrial fibrillation, B cell lymphoma, COPD, DM II, h/o DVT, CAD, and anxiety who presented to the ED on 01/04 with nausea, vomiting, fevers, cough, and shortness of breath. The patient is a history of B-cell lymphoma and receives chemotherapy every other week. The patient's last cycle was done December 29-. The patient has had persistent nausea , vomiting, and central abdominal pain following chemotherapy, but he states that this is typical. He's been taking Zofran and Compazine at home without much relief. The last few days he developed a productive cough with yellow sputum and increased shortness of breath. The patient is on 4 L nasal cannula continuous at home. The patient was recently admitted for pneumonia, and he states that his symptoms now feel similar. He complains of intermittent fevers , chills, and sweats. He's also noticed more wheezing lately. His nausea and vomiting have improved since coming to the ED. He describes as central abdominal pain as an 8/10 aching pain, but states this is better than the last time he had chemo, after which he has very severe abdominal pain. The patient denies chest pain, palpitations, claudication, dysuria, hematuria, urinary retention, paralysis, weakness, numbness and tingling. HOSPITAL COURSE: Mr. García was admitted for suspected HCAP since he had a recent pneumonia however no imaging or clinically findings suggested this. He was initiated on Levaquin, Zosyn, and Vancomycin upon admission. These medications were discontinued the following AM after admission. He did experience diarrhea and this was positive for C. diff. He is only having approx. 1 diarrheal BM a day. His presenting symptoms of nausea/vomiting/ abdominal pain/diarrhea are common with his chemotherapy and may been a mix of both adverse effect and C. diff. Even though this is a first occurrence, he was treated with Vancomycin 125 mg po QID with plans to finish a 10 day course. Consideration for prophylaxis in setting of chemotherapy per Oncology as Dr. Amaro did visit the patient during admission. All symptoms improved and he is reporting a somewhat improved appetite and no further nausea/vomiting. He did express concern for poor quality of life since starting chemotherapy to the point he is considering stopping treatments. Had a long conversation with him and suspect that he has some acute depression from the drastic change in lifestyle and current treatment for lymphoma. Did recommend consideration for outpatient psychiatry. Also recommended further discussion with his oncologist for prognosis and treatment plan to make better informed decisions. Patient may benefit from antidepressant or appetite stimulator in setting of chemotherapy. Also discussed his dietary habits as he continues to be non-compliant with a diabetic diet and also consuming regular soda beverages. Rx given to have repeat CBC and BMP in the next few days as he is currently pancytopenic and with fluctuating magnesium/potassium levels. Total Time Spent: Greater than 30 minutes This includes examination of the patient, discharge planning, medication reconciliation, and communication with other providers. (Suad Duran PA-C) Discharge Instructions Please refer to the electronic Patient Visit Report (Discharge Instructions) for additional information. (Suad Duran PA-C) Additional Copies To Nery Grace M.D. Reviewed: Pt Seen/Exam by Me (Laura Steele DO) History Pt is feeling improved. He has been able to eat today without any nausea or abd pain. Has had diarrhea today, but it is improving. Agree with HPI/ROS as noted. (Laura Steele DO) General Appearance: no apparent distress, obese Respiratory: normal breath sounds, no respiratory distress Cardiovascular: normal peripheral pulses, regular rate, rhythm Gastrointestinal: non tender, soft Extremities: non-tender, no pedal edema Neurologic/Psychiatric: alert, normal mood/affect, oriented x 3 Skin Characteristics: normal color, warm/dry (Laura Steele DO) Assessment/Plan Agree with plan as outlined above Cdiff POA, improving with abx Monitor Ongoing chemo as per onc, labs to be followed by oncology for antineoplastic induced pancytopenia (Laura Steele DO)
[2017-04-08] MEDS ORDERED: INSDGIPEN SC (16:03)
[2017-04-08] MEDS ORDERED: MAGN250T8 PO (16:03)
[2017-04-08] MEDS ORDERED: PROC1TAB5 PO (16:03)
== END 2017-01-07 15:30 | disposition home or self-care (01) | DRG 371 ==
LOC: C.EDB 13:45 → C.2T 19:10 → ENRESERV 19:24 → OBSVTOIN 01-05 13:38 → CANRESERV 01-05 14:20 → ENRESERV 01-05 14:20 → EDBEDREQSVC 01-05 14:35 → ENRESERV 01-05 14:41 → C.4E 01-05 15:59
PROVIDERS: ADMIT Hospitalist; ATTEND Family Medicine
DX: A04.7 Enterocolitis due to Clostridium difficile (principal); D61.810 Antineoplastic chemotherapy induced pancytopenia; C85.10 Unspecified B-cell lymphoma, unspecified site; Z68.42 Body mass index [BMI] 45.0-49.9, adult; J44.9 Chronic obstructive pulmonary disease, unspecified; E11.40 Type 2 diabetes mellitus with diabetic neuropathy, unspecified; F41.9 Anxiety disorder, unspecified; I25.10 Atherosclerotic heart disease of native coronary artery without angina pectoris; Z79.01 Long term (current) use of anticoagulants; E83.42 Hypomagnesemia; Z99.81 Dependence on supplemental oxygen; I10 Essential (primary) hypertension; M10.9 Gout, unspecified; Z87.891 Personal history of nicotine dependence; Z79.899 Other long term (current) drug therapy; T45.1X5A Adverse effect of antineoplastic and immunosuppressive drugs, initial encounter; E66.9 Obesity, unspecified; Z80.9 Family history of malignant neoplasm, unspecified; Z83.6 Family history of other diseases of the respiratory system; Z88.6 Allergy status to analgesic agent; G47.33 Obstructive sleep apnea (adult) (pediatric); Z86.718 Personal history of other venous thrombosis and embolism

== ENCOUNTER → 2017-02-28 | Outpatient (CLI) | payer BC ==
[~2017-02-28] MED LIST changes: -AZIT250T PO; -CYM20 PO; +DULO-24 PO; -DXM/4 PO; +GEMC1INJ IV; +INSDGIPEN SC; +INSU100I SQ; +LCTX PO; +MAGN250T8 PO; +MCRK20 PO; -METO5TAB2 PO; +MGNO400 PO; +PROC1TAB5 PO; +RTXI100 IV; +VANC5CAP PO; +[UNRECOGNIZED DRUG - CODE] IV
--- NOTE | 2017-02-28 09:50 | DIAGNOSTIC IMAGING REPORT ---
PET/CT CLINICAL HISTORY: 61-year-old male with history of lymphoma. TECHNIQUE: PET/CT was performed from the base of the skull through the pelvis following the intravenous administration of 16 mCi of F18-FDG. Non-contrast CT imaging was performed over the same range without breath-hold for attenuation correction of PET images and anatomic correlation, but not for primary interpretation as it is not of standard diagnostic quality. CT DOSE: 1343.42 mGy.cm. COMPARISON: PET/CT from 11/03/2016. FINDINGS: HEAD AND NECK: Minimal mucosal thickening in the right maxillary sinus. Limited intracranial evaluation within normal limits. No enlarged or FDG avid cervical lymphadenopathy. CHEST: Right subclavian Mediport terminates in the superior cavoatrial junction. Unchanged appearance of the photopenic cystic lesion in the left axilla, now measuring 3.5 x 3.0 cm, likely postoperative seroma. Postsurgical changes from prior right axillary lymph node dissection. No pathologically enlarged or FDG avid lymph nodes. Few subcentimeter mediastinal lymph nodes with background level activity. Persistent right basilar consolidation, which is non-FDG avid. Scattered non-FDG avid groundglass opacities in the upper lobes unchanged, possibly indicating small airways disease. Previously noted 6 mm left upper lobe nodule, unchanged. Previous seen noted 9 mm subpleural left lower lobe nodule, also unchanged. No FDG avid parenchymal disease. ABDOMEN/PELVIS: Focal activity along the posterior right hepatic dome without a clear abnormality on anatomic imaging (max SUV 4.4). This appearance represents a change from prior. Multiple previously described lymph nodes next below: -Previously enlarged right external iliac lymph node is less well-defined on the current exam, decreased in size and with decreased FDG avidity, now measuring 1.9 x 0.9 cm (max SUV 1.5), previously 3.0 x 2.0 cm on 11/03/2016 (max SUV 5) and 2.4 x 1.3 cm on 12/08/2015. -Previously noted enlarged left external iliac lymph node also decreased in size and with decreased FDG avidity, now measuring 1.8 x 0.6 cm (max SUV 1.8), previously 2.2 x 1.2 cm (max SUV 4). -Previously noted enlarged right inguinal lymph node now measures 1.7 x 1.4 cm (max SUV 0.9), previously 2.4 x 1.9 cm (max SUV 8). Hepatic steatosis. Atherosclerosis. Notably, the anterior abdomen is excluded from the [id number] secondary to patient body habitus. MUSCULOSKELETAL: Diffuse increased uptake within the bone marrow of the axial and appendicular skeleton, possibly reactive. IMPRESSION: 1. Decreased size and FDG avidity of bilateral external iliac and right inguinal lymph nodes consistent with treatment response. 2. Diffuse increased uptake within the bone marrow may be reactive in the setting of rebound. 3. Subcentimeter stable pulmonary nodules, which are non-FDG avid. 4. Interval development of FDG avidity along the posterior right hepatic dome without anatomic correlate. This is of uncertain etiology or attention on follow-up. Given the presence of hepatic steatosis, parenchymal inflammation may be a possible etiology. 5. Hepatic steatosis. Electronically signed by: Agusto Banuelos M.D. 02/28/2017 9:48 AM Dictated Date/Time: 02/28/2017 9:29 AM
== END | disposition home or self-care (01) ==
LOC: C.PET 06:41
PROVIDERS: ATTEND Nurse Practitioner Family
DX: C83.30 Diffuse large B-cell lymphoma, unspecified site (principal)

== ENCOUNTER 2017-03-22 19:42 | Emergency (ER) | payer BC ==
[~2017-03-22] VITALS: Ht 180.3 cm; Wt 156.0 kg
[~2017-03-22 19:42] MED LIST changes: -DULO-24 PO; -INSU100I SQ; -MAGN250T8 PO; -PROC1TAB5 PO; -VANC5CAP PO
[2017-03-22 19:47] VITALS: TEMP 37.4; Ht 180.3 cm; Wt 156.0 kg
[2017-03-22] MEDS ORDERED: VANC5CAP PO (19:59)
[2017-03-22] MEDS ORDERED: INSU100I SQ (20:04)
[2017-03-22] MEDS ORDERED: OXGN (20:04)
[2017-03-22] MEDS ORDERED: DULO-24 PO (20:04)
--- NOTE | 2017-03-22 21:05 | EMERGENCY ROOM VISIT NOTE ---
History Report prepared by Bong: Orlin Ambrose Under the Supervision of: Dr. Lisandra Baeza M.D. First contact with patient: 19:58 Chief Complaint: INFECTION Stated Complaint: INFECTED TOE, DIABETIC CANCER PT Nursing Triage Summary: Pt states he bumped his right great toe on Tuesday on the couch. Pt c/o pain. toe reddened and swollen. B Cell Cancer. Last chemo . Blood transfusion Tuesday History of Present Illness The patient is a 61 year old male who presents to the Emergency Room with complaints of constant right great toe pain starting four days ago. The patient states that he hit his toe on the corner of a couch. He denies any discharge. He additionally states that he is diabetic. Source of History: patient Onset: four days ago Position: toe(s) (right great toe) Timing: constant Review of Systems See HPI for pertinent positives & negatives. A total of 6 systems reviewed and were otherwise negative. Past Medical & Surgical Medical Problems: (1) Abdominal pain (2) Anticoagulants,Lt,Current Use (3) Atrial fibrillation with rapid ventricular response (4) B-cell lymphoma (5) B-cell lymphoma (6) Cellulitis and abscess of leg, except foot (7) Chronic Atrial Fibrillation (8) COPD (chronic obstructive pulmonary disease) (9) COPD exacerbation (10) Dependence On Supplemental Oxygen (11) DVT (deep venous thrombosis) (12) Episode of syncope (13) Facial contusion (14) Fall (15) Fracture of rib of left side (16) Gout, Unspecified (17) HCAP (healthcare-associated pneumonia) (18) Hypertension (19) Hypoxemia (20) Hypoxia (21) Injury of left leg (22) Injury of left lower arm (23) New onset atrial fibrillation (24) Obstructive Sleep Apnea (Adult) (Pediatric) (25) sob, copd exac, and pleural effusion (26) Traumatic closed fracture of one rib of left side with minimal displacement Family History Cancer Lung disease Social History Smoking Status: Current Every Day Smoker Alcohol Use: none Drug Use: none Marital Status: Housing Status: lives with family Occupation Status: employed Current/Historical Medications Scheduled Budesonide (Inhalation) (Pulmicort), 2 ML NEB BID Diltiazem Hcl Extended Release (Diltiazem Hcl Er), 240 MG PO QAM Duloxetine HCl (Cymbalta), 40 MG PO DAILY Fish Oil (Fish Oil), 2 CAP PO DAILY Furosemide (Furosemide), 40 MG PO DAILY Furosemide (Furosemide), 20 MG PO Q2D Gabapentin (Gabapentin), 300 MG PO QPM Gemcitabine Hcl (Gemcitabine), IV BIWEEKLY Home O2 Therapy (Oxygen), 4 LITER NA CONTINOUS Insulin Glargine (Lantus Solostar), 28 UNITS SC QAM Insulin Lispro (Human) (Humalog), 1 DOSE SQ SLIDING SCALE Lactobacillus Acidophilus (Floranex), 4 TAB PO BID Magnesium Oxide (Magnesium-Oxide), 400 MG PO BID Metoprolol Tartrate (Metoprolol Tartrate), 50 MG PO BID Ocuvite Preservision (Ocuvite Preservision), 2 TABS PO DAILY Oxaliplatin (Oxaliplatin), Unknown Dose IV BIWEEKLY Rituximab (Rituxan), Unknown Dose IV BIWEEKLY Rivaroxaban (Xarelto), 20 MG PO PM Umeclidinium-Vilanterol (Anoro Ellipta 62.5-25 Mcg/INH), 1 PUFF INH QAM Vancomycin Hcl (Vancomycin), 125 MG PO BID Scheduled PRN Amoxicillin & Pot Clavulanate (Amoxicillin/Clavulanate P), 1 TAB PO BID PRN for COPD Rescue Kit Ipratropium-Albuterol (Duoneb), 1 TREATMENT INH QID PRN for COPD Ondansetron (Ondansetron HCl), 8 MG PO Q8 PRN for Nausea Prednisone (Prednisone), 40 MG PO UD PRN for COPD Rescue Kit Prochlorperazine Maleate (Prochlorperazine Maleate), 10 MG PO Q8H PRN for nausea Allergies Coded Allergies: Aspirin (Verified Allergy, Severe, ANAPHYLAXIS, 03/22/17) Ibuprofen (Verified Allergy, Intermediate, HIVES, 03/22/17) Acetaminophen (Verified Allergy, Mild, HIVES, 03/22/17) Physical Exam Vital Signs Date Time Temp Pulse Resp B/P (MAP) Pulse Ox O2 Delivery O2 Flow Rate FiO2 03/22/17 21:46 65 18 106/60 94 Nasal Cannula 4.0 03/22/17 19:47 37.4 67 18 130/69 94 Nasal Cannula 4.0 Physical Exam Vital signs reviewed. General: Chronically ill-appearing, obese, on oxygen, in no significant distress. Musculoskeletal: Minimal peripheral edema. Right great toe with thickened nail. Nail bed is erythematous with some ecchymosis noted. Tenderness to palpation of the nail with any pressure to the tip of the toe. No drainage appreciated. No open wound. Onychomycosis noted Neurologic: Patient awake alert and oriented x 3 Skin: Warm, dry, no rash Medical Decision & Procedures ER Provider Diagnostic Interpretation: Radiology results as stated below per my review and radiologist interpretation: RIGHT TOE(S) MIN 2 VIEWS CLINICAL HISTORY: R great toe trauma Right trauma. Pain. COMPARISON: None. DISCUSSION: The bones and joint spaces appear intact. There is no evidence of fracture, dislocation or bony disease. Mild soft tissue edema IMPRESSION: Mild soft tissue edema. No acute bony abnormality. The above report was generated using voice recognition software. It may contain grammatical, syntax or spelling errors. Electronically signed by: Fadi Ng M.D. 03/22/2017 9:03 PM Dictated Date/Time: 03/22/2017 9:02 PM Procedure Trephination Area cleansed with ChloraPrep swab. The right great toe was trephinated with electrocautery. Small amount of serosanguineous fluid was expressed. Bandage was applied. Patient tolerate the procedure well. ED Course 1957: Past medical records reviewed. The patient was evaluated in room C4. A complete history and physical examination was performed. 2119: I performed a trephination on the patient. I discussed the discharge instructions with him, and he was agreeable. He was discharged home. Medical Decision Differential diagnosis: Etiologies such as fracture, dislocation, neurovascular compromise, compartment syndrome, soft tissue injury, as well as others were entertained. This patient was evaluated and appeared to be in no significant distress. X- ray was obtained and reveals no fracture. Patient's nail was trephinated. He had significant relief of his discomfort. A bandage was applied and the patient was advised to avoid further trauma to this toe while it heals. He'll follow-up with his primary care physician or director of resource development for reevaluation this week. He will return to the ER for worsening of symptoms or any medical concerns. Medication Reconcilliation Current Medication List: was personally reviewed by me Blood Pressure Screening Patient's blood pressure: Normal blood pressure Impression Primary Impression: Subungual hematoma of great toe of right foot Scribe Attestation The scribe's documentation has been prepared under my direction and personally reviewed by me in its entirety. I confirm that the note above accurately reflects all work, treatment, procedures, and medical decision making performed by me. Departure Information Dispostion Home / Self-Care Referrals Nery Grace M.D. (PCP) Forms HOME CARE DOCUMENTATION FORM, IMPORTANT VISIT INFORMATION, WORK / SCHOOL INSTRUCTIONS Patient Instructions My [facility] Additional Instructions Diagnosis: Right great toe subungual hematoma Wear a bandaid over the toenail until it stops draining. Avoid further trauma to your toe if possible. Follow up with your foot doctor for reevaluation in 1 week. Return to the ED for worsening of symptoms or any medical concerns.
[2017-03-22 21:46] VITALS: BP 106/60; PULSE 65; O2SAT 94
[2017-04-08] MEDS ORDERED: MAGN250T8 PO (16:03)
[2017-04-08] MEDS ORDERED: PROC1TAB5 PO (16:03)
[2017-04-08] MEDS ORDERED: INSDGIPEN SC (16:03)
== END 2017-03-22 21:46 | disposition home or self-care (01) ==
LOC: C.EDB 19:43 → C.EDC 21:46
DX: S90.111A Contusion of right great toe without damage to nail, initial encounter (principal); W22.8XXA Striking against or struck by other objects, initial encounter; Y92.9 Unspecified place or not applicable; C85.10 Unspecified B-cell lymphoma, unspecified site; E11.9 Type 2 diabetes mellitus without complications; I48.91 Unspecified atrial fibrillation; J44.9 Chronic obstructive pulmonary disease, unspecified; Z86.718 Personal history of other venous thrombosis and embolism; M10.9 Gout, unspecified; G47.33 Obstructive sleep apnea (adult) (pediatric); Z80.9 Family history of malignant neoplasm, unspecified; Z83.6 Family history of other diseases of the respiratory system; F17.210 Nicotine dependence, cigarettes, uncomplicated; Z79.4 Long term (current) use of insulin; Z79.01 Long term (current) use of anticoagulants; Z99.81 Dependence on supplemental oxygen

== ENCOUNTER 2017-04-08 15:05 | Inpatient (IN) | payer BC ==
[~2017-04-08] VITALS: Ht 152.4 cm; Wt 155.5 kg
[~2017-04-08 15:05] MED LIST changes: -MAGN250T8 PO; -PROC1TAB5 PO
[2017-04-08] MEDS ORDERED: INSDGIPEN SC ×2 (16:03)
[2017-04-08] MEDS ORDERED: PROC1TAB5 PO ×2 (16:03)
[2017-04-08] MEDS ORDERED: MAGN250T8 PO ×2 (16:03)
--- NOTE | 2017-04-08 16:05 | EMERGENCY ROOM VISIT NOTE ---
History Report prepared by Bong: Spring Esquivel Under the Supervision of: Dr. Sreekanth Beauchamp M.D. First contact with patient: 15:12 Chief Complaint: OTHER COMPLAINT Stated Complaint: LOW PLATLETS History of Present Illness The patient is a 61 year old male who presents to the Emergency Room with complaints of abnormal lab work. He reports he had blood drawn this morning, ordered by Dr. Nery Navarro. He was called early this afternoon and told his platelets and Hemoglobin were low and to come to the ED. The patient admits to feeling generally weak. He experienced 1 episode of epistaxis this morning. He notes he has been told in the past that chemotherapy for his history of B-Cell lymphoma is possibly contributing to his lab abnormalities. The patient follows with Dr. Amaro here at [facility]. His last chemotherapy was in late March. 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 He has been short of breath recently as well and wears Oxygen for a history of COPD. The patient states he experienced bruising to his left hand after the syncopal episode. The patient denies any recent headache, fevers, chills, diaphoresis, visual changes, neck pain, chest pain, nausea, vomiting, abdominal pain, back pain, melena, hematochezia, urinary symptoms, numbness, lymphadenopathy, rash, or other complaints. 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 A total of ten systems were reviewed and were otherwise negative. Past Medical & Surgical Medical Problems: (1) Abdominal pain (2) Anemia (3) Anticoagulants,Lt,Current Use (4) Atrial fibrillation with rapid ventricular response (5) B-cell lymphoma (6) B-cell lymphoma (7) Cellulitis and abscess of leg, except foot (8) Chronic Atrial Fibrillation (9) COPD (chronic obstructive pulmonary disease) (10) COPD exacerbation (11) Dependence On Supplemental Oxygen (12) DVT (deep venous thrombosis) (13) Episode of syncope (14) Facial contusion (15) Fall (16) Fracture of rib of left side (17) Gout, Unspecified (18) HCAP (healthcare-associated pneumonia) (19) Hypertension (20) Hypoxemia (21) Hypoxia (22) Injury of left leg (23) Injury of left lower arm (24) New onset atrial fibrillation (25) Obstructive Sleep Apnea (Adult) (Pediatric) (26) sob, copd exac, and pleural effusion (27) Traumatic closed fracture of one rib of left side with minimal displacement Family History Cancer Lung disease Social History Smoking Status: Current Every Day Smoker Alcohol Use: none Drug Use: none Marital Status: Housing Status: lives with family Occupation Status: employed Current/Historical Medications Scheduled Budesonide (Inhalation) (Pulmicort), 2 ML NEB BID Diltiazem Hcl Extended Release (Diltiazem Hcl Er), 240 MG PO QAM Duloxetine HCl (Cymbalta), 40 MG PO DAILY Furosemide (Furosemide), 40 MG PO DAILY Furosemide (Furosemide), 20 MG PO Q2D Gabapentin (Gabapentin), 300 MG PO QPM Gemcitabine Hcl (Gemcitabine), IV BIWEEKLY Home O2 Therapy (Oxygen), 4 LITER NA CONTINOUS Insulin Glargine (Lantus Solostar), 28 UNITS SC QAM Insulin Glargine (Lantus Solostar), 6 UNITS SC QPM Insulin Lispro (Human) (Humalog), 1 DOSE SQ SLIDING SCALE Magnesium Oxide (Mg Supplement (Magnesium), 1 TAB PO BID Metoprolol Tartrate (Metoprolol Tartrate), 50 MG PO BID Oxaliplatin (Oxaliplatin), Unknown Dose IV BIWEEKLY Rituximab (Rituxan), Unknown Dose IV BIWEEKLY Rivaroxaban (Xarelto), 20 MG PO PM Umeclidinium-Vilanterol (Anoro Ellipta 62.5-25 Mcg/INH), 1 PUFF INH QAM Vancomycin Hcl (Vancomycin), 125 MG PO BID Scheduled PRN Amoxicillin & Pot Clavulanate (Amoxicillin/Clavulanate P), 1 TAB PO BID PRN for COPD Rescue Kit Ipratropium-Albuterol (Duoneb), 1 TREATMENT INH QID PRN for COPD Ondansetron (Ondansetron HCl), 8 MG PO Q8 PRN for Nausea Prednisone (Prednisone), 40 MG PO UD PRN for COPD Rescue Kit Prochlorperazine Maleate (Compazine), 10 MG PO Q8H PRN for Nausea Allergies Coded Allergies: Aspirin (Verified Allergy, Severe, ANAPHYLAXIS, 04/08/17) Ibuprofen (Verified Allergy, Intermediate, HIVES, 04/08/17) Acetaminophen (Verified Allergy, Mild, HIVES, 04/08/17) Physical Exam Vital Signs Date Time Temp Pulse Resp B/P (MAP) Pulse Ox O2 Delivery O2 Flow Rate FiO2 04/08/17 17:18 98 Nasal Cannula 4.0 04/08/17 17:16 63 18 109/65 100 Nasal Cannula 4.0 04/08/17 15:06 36.5 66 18 131/72 95 Room Air Physical Exam GENERAL: Awake, alert, well-appearing, in no distress HENT: Normocephalic, atraumatic. Oropharynx unremarkable. EYES: Pale conjunctiva. Sclera non-icteric. NECK: Supple. No nuchal rigidity. FROM. No JVD. RESPIRATORY: Clear to auscultation. CARDIAC: Regular rate, normal rhythm. Extremities warm and well perfused. Pulses equal. ABDOMEN: Soft, non-distended. No tenderness to palpation. No rebound or guarding. No masses. RECTAL: Deferred. MUSCULOSKELETAL: Chest examination reveals no tenderness. The back is symmetrical on inspection without obvious abnormality. There is no CVA tenderness to palpation. No joint edema. LOWER EXTREMITIES: Chronic venous discoloration. 2+ lower extremity edema. Calves are equal size bilaterally and non-tender. NEURO: Normal sensorium. No sensory or motor deficits noted. SKIN: Scattered bruising on back of left hand. No rash or jaundice noted. Medical Decision & Procedures Laboratory Results 04/08/17 16:26 Red Blood Count 2.32, Mean Corpuscular Volume 90.5, Mean Corpuscular Hemoglobin 31.0, Mean Corpuscular Hemoglobin Concent 34.3, Mean Platelet Volume 10.7, Neutrophils (%) (Auto) 80.5, Lymphocytes (%) (Auto) 9.3, Monocytes (%) (Auto) 5.5, Eosinophils (%) (Auto) 2.8, Basophils (%) (Auto) 1.1, Neutrophils # (Auto) 4.26, Lymphocytes # (Auto) 0.49, Monocytes # (Auto) 0.29, Eosinophils # (Auto) 0.15, Basophils # (Auto) 0.06 04/08/17 16:26 Test 04/08/17 16:26 White Blood Count 5.29 K/uL (4.8-10.8) Red Blood Count 2.32 M/uL (4.7-6.1) Hemoglobin 7.2 g/dL (14.0-18.0) Hematocrit 21.0 % (42-52) Mean Corpuscular Volume 90.5 fL (80-100) Mean Corpuscular Hemoglobin 31.0 pg (25-34) Mean Corpuscular Hemoglobin Concent 34.3 g/dl (32-36) Platelet Count 15 K/uL (130-400) Mean Platelet Volume 10.7 fL (7.4-10.4) Neutrophils (%) (Auto) 80.5 % Lymphocytes (%) (Auto) 9.3 % Monocytes (%) (Auto) 5.5 % Eosinophils (%) (Auto) 2.8 % Basophils (%) (Auto) 1.1 % Neutrophils # (Auto) 4.26 K/uL (1.4-6.5) Lymphocytes # (Auto) 0.49 K/uL (1.2-3.4) Monocytes # (Auto) 0.29 K/uL (0.11-0.59) Eosinophils # (Auto) 0.15 K/uL (0-0.5) Basophils # (Auto) 0.06 K/uL (0-0.2) RDW Standard Deviation 62.1 fL (36.4-46.3) RDW Coefficient of Variation 18.7 % (11.5-14.5) Immature Granulocyte % (Auto) 0.8 % Immature Granulocyte # (Auto) 0.04 K/uL (0.00-0.02) Toxic Granulation 2+ Platelet Estimate SIGNIFIC DECREASED Tear Drop Cells 1+ Ovalocytes 1+ Prothrombin Time 11.3 SECONDS (9.0-12.0) Prothromb Time International Ratio 1.1 (0.9-1.1) Activated Partial Thromboplast Time 30.7 SECONDS (21.0-31.0) Partial Thromboplastin Ratio 1.2 Anion Gap 8.0 mmol/L (3-11) Est Creatinine Clear Calc Drug Dose 138.3 ml/min Estimated GFR () 109.0 Estimated GFR (Non- 94.0 BUN/Creatinine Ratio 15.5 (10-20) Calcium Level 8.8 mg/dl (8.5-10.1) Total Bilirubin 0.6 mg/dl (0.2-1) Direct Bilirubin 0.2 mg/dl (0-0.2) Aspartate Amino Transf (AST/SGOT) 70 U/L (15-37) Alanine Aminotransferase (ALT/SGPT) 105 U/L (12-78) Alkaline Phosphatase 128 U/L (45-117) Troponin I < 0.015 ng/ml (0-0.045) Total Protein 6.0 gm/dl (6.4-8.2) Albumin 2.9 gm/dl (3.4-5.0) Lipase 679 U/L (73-393) Laboratory results reviewed by me ECG Indication: SOB/dyspnea Rate (beats per minute): 63 Rhythm: sinus rhythm Findings: 1st degree AV block, no acute ischemic change, no ectopy ED Course 1523: The patient was evaluated in room C6. A complete history and physical exam was performed. 1712: I discussed the patients case with Dr. Coyne. He agrees with the patient receiving platelets and blood. 1722: I discussed the patients case with Dr. Steele, [facility] Hospitalist. The patient will be further evaluated. 1730: I reevaluated the patient. He is resting comfortably. I discussed his results and my recommendation he remain in the hospital for further evaluation and management. He verbalized complete understanding and agreement. Medical Decision Triage Nursing notes reviewed. The patient's presentation and history were concerning for SOB, lightheadedness , and possible significant anemia and thrombocytopenia. Etiologies such as symptomatic anemia, thrombocytopenia, pneumonia, COPD, reactive airway disease, CHF, cardiac ischemia, pulmonary embolism, pneumothorax , musculoskeletal, infections, gastrointestinal, as well as others were entertained. Patient was evaluated. His conjunctiva was pale. He does note some recent nosebleeds. His reported H&H was just above 7. His platelets are 23. The patient does have a history of recent transfusion. Blood work was obtained. The patient was found to have significant thrombocytopenia with a platelet count of 15. He was also very anemic with a hemoglobin of 7.2. The patient was informed. He was consented for platelet and red blood cell transfusion.I gave my usual and customary discussion regarding this issue. I did discuss the case with Dr. Claros oncology. He recommended the platelets and blood transfusion. I ordered the platelets and blood. I placed a consult with the hospitalist service. The patient was evaluated in the Emergency Room for further management. Medication Reconcilliation Current Medication List: was personally reviewed by me Blood Pressure Screening Patient's blood pressure: Normal blood pressure Blood pressure disposition: Did not require urgent referral Consults Time Called: 1710 Consulting Physician: Dr. Ventura, ENT Returned Call: 1712 I discussed the patients case with Dr. Coyne. He agrees with the patient receiving platelets and blood. Additional Consults: Time Called: 1720 Consulted Physician: Dr. Steele, [facility] Hospitalist Returned Call: 1722 Additional Comments: I discussed the patients case with Dr. Steele [facility] Hospitalist. The patient will be further evaluated. Impression Primary Impression: Anemia Additional Impression: Thrombocytopenia Scribe Attestation The scribe's documentation has been prepared under my direction and personally reviewed by me in its entirety. I confirm that the note above accurately reflects all work, treatment, procedures, and medical decision making performed by me. Departure Information Dispostion Being Evaluated By Hospitalist Referrals Nery Grace M.D. (PCP) Patient Instructions [facility] Problem Qualifiers
[2017-04-08 16:43] LABS: INR 1.1 (0.9-1.1); PARTIAL THROMBOPLASTIN RATIO 1.2; PROTHROMBIN TIME (PATIENT) 11.3 SECONDS (9.0-12.0)
[2017-04-08 16:51] LABS: PLATELET COUNT 15 K/uL (130-400)
[2017-04-08 16:53] LABS: ALT/SGPT 105 U/L (12-78); BLOOD UREA NITROGEN 13 mg/dl (7-18); BUN/CREATININE RATIO 15.5 (10-20); CALCIUM 8.8 mg/dl (8.5-10.1); CARBON DIOXIDE 27 mmol/L (21-32); CHLORIDE 102 mmol/L (98-107); CREATININE 0.85 mg/dl (0.60-1.40); GLUCOSE 160 mg/dl (70-99); POTASSIUM 4.1 mmol/L (3.5-5.1); SODIUM 138 mmol/L (136-145)
[2017-04-08 16:58] LABS: ALKALINE PHOSPHATASE 128 U/L (45-117); AST/SGOT 70 U/L (15-37)
[2017-04-08 17:02] LABS: BASO % 1.1 %; BASO ABS # 0.06 K/uL (0-0.2); COMPLETE YES; EOS % 2.8 %; IG% 0.8 %; LYMPH % 9.3 %; LYMPH ABS # 0.49 K/uL (1.2-3.4); MEAN CELL VOLUME 90.5 fL (80-100); MEAN CORPUSCULAR HGB CONC 34.3 g/dl (32-36); MEAN PLATELET VOLUME 10.7 fL (7.4-10.4); MONO % 5.5 %; NEUT % 80.5 %; OVALOCYTES 1+; PLT ESTIMATE SIGNIFIC DECREASED; RED BLOOD COUNT 2.32 M/uL (4.7-6.1); TEAR DROP CELLS 1+; TOXIC GRANULATION 2+; WHITE BLOOD COUNT 5.29 K/uL (4.8-10.8)
[2017-04-08] MEDS ORDERED: FUROSEMIDE 20 MG TAB PO SCH (18:00)
[2017-04-08] MEDS ORDERED: ONDANSETRON INJ 2 MG/ML 2 ML VIAL IV PRN (18:00)
[2017-04-08] MEDS ORDERED: PROCHLORPERAZINE MALEATE 10 MG TAB PO PRN (18:00)
[2017-04-08] MEDS ORDERED: NICOTINE 14 MG/24 HR TDSY TD PRN (18:00)
[2017-04-08] MEDS ORDERED: GLUCOSE 10 TABS/TUBE PO PRN (18:00)
[2017-04-08] MEDS ORDERED: ALBUT/IPRATROP 3MG/0.5MG NEB 3 ML VIAL INH PRN ×2 (18:00→18:30)
[2017-04-08] MEDS ORDERED: DEXTROSE 50% 50 ML SYR IV PRN (18:00)
[2017-04-08] MEDS ORDERED: GLUCOSE 40% GEL 15 GM TUBE PO PRN (18:00)
[2017-04-08] MEDS ORDERED: ONDANSETRON 8 MG TAB PO PRN (18:00)
[2017-04-08] MEDS ORDERED: GLUCAGON FOR INJ 1 MG VIAL SQ PRN (18:00)
[2017-04-08] MEDS ORDERED: MAGNESIUM HYDROXIDE SUSP 30 ML UDC PO PRN (18:00)
[2017-04-08] MEDS ORDERED: NON-FORMULARY MEDICATION (Home O2 Therapy (Oxygen) 4 LITER) ONE (18:00)
[2017-04-08] MEDS ORDERED: ACETAMINOPHEN 325 MG TAB PO PRN (18:00)
--- NOTE | 2017-04-08 18:12 | History and Physical ---
History & Physical Date & Time of Service: Apr 08, 2017 at 17:55 Chief Complaint: Low Platlets Primary Care Physician: Nery Grace M.D. History of Present Illness Source: patient 61 y/o M who was sent to the ED by PCP for abn labs. Pt states he saw his PCP after having a syncopal episode 2 days ago. She ordered labs and he was found to have low Hb and platelets. Pt is undergoing active chemo for B cell lymphoma and last tx was last week. He had a nose bleed today, but otherwise no signs of bleeding or bruising, including stool or urine. He has a decreased appetite, but mostly tolerates PO. He did have a bit of n/v just after his tx, which is standard for him. This has improved as he is further out from tx. Pt does have mild epigastric pain, which is chronic for him and at its baseline. Pt notes that he had quit smoking for quit some time, however about 1 month ago he became depressed and started smoking again. He has noted a bit of SOB at times since then and is trying to taper off cigarettes again. His notes that he has not been using his inhalers at home. Pt also stopped taking his lasix because with the chemo, he felt he was getting dehydrated. He has not had issues with LE swelling since that change. Pt is finishing a course of vanco for cdiff, 125mg BID with last dose tomorrow night. Pt denies fever, chest pain, c/d, LE pain. Past Medical/Surgical History Medical Problems: (1) Anticoagulants,Lt,Current Use Status: Chronic (2) Atrial fibrillation with rapid ventricular response Status: Resolved (3) B-cell lymphoma Status: Chronic (4) Cellulitis and abscess of leg, except foot Status: Resolved (5) Chronic Atrial Fibrillation Status: Chronic (6) COPD (chronic obstructive pulmonary disease) Status: Chronic (7) COPD exacerbation Status: Resolved (8) Dependence On Supplemental Oxygen Status: Chronic (9) DVT (deep venous thrombosis) Status: Resolved (10) Facial contusion Status: Resolved (11) Fall Status: Resolved (12) Fracture of rib of left side Status: Resolved (13) Gout, Unspecified Status: Chronic (14) Hypertension Status: Chronic (15) Hypoxemia Status: Resolved (16) Hypoxia Status: Resolved (17) Injury of left leg Status: Resolved (18) Injury of left lower arm Status: Resolved (19) New onset atrial fibrillation Status: Resolved (20) Obstructive Sleep Apnea (Adult) (Pediatric) Status: Chronic (21) Traumatic closed fracture of one rib of left side with minimal displacement Status: Resolved FRED on home BIPAP HS O2 dependent COPD, 4L continuous Recent cdiff Family History Family history was reviewed; no changes noted. Social History Smoking Status: Current Every Day Smoker (resumed recently, trying to quit again) Alcohol Use: none Drug Use: none Marital Status: Housing status: lives with significant other Occupational Status: employed Multi-Drug Resistant Organisms History of MDRO: No Allergies Coded Allergies: Aspirin (Verified Allergy, Severe, ANAPHYLAXIS, 04/08/17) Ibuprofen (Verified Allergy, Intermediate, HIVES, 04/08/17) Acetaminophen (Verified Allergy, Mild, HIVES, 04/08/17) Home Medications Scheduled Budesonide (Inhalation) (Pulmicort), 2 ML NEB BID Diltiazem Hcl Extended Release (Diltiazem Hcl Er), 240 MG PO QAM Duloxetine HCl (Cymbalta), 40 MG PO DAILY Furosemide (Furosemide), 40 MG PO DAILY Furosemide (Furosemide), 20 MG PO Q2D Gabapentin (Gabapentin), 300 MG PO QPM Gemcitabine Hcl (Gemcitabine), IV BIWEEKLY Home O2 Therapy (Oxygen), 4 LITER NA CONTINOUS Insulin Glargine (Lantus Solostar), 28 UNITS SC QAM Insulin Glargine (Lantus Solostar), 6 UNITS SC QPM Insulin Lispro (Human) (Humalog), 1 DOSE SQ SLIDING SCALE Magnesium Oxide (Mg Supplement (Magnesium), 1 TAB PO BID Metoprolol Tartrate (Metoprolol Tartrate), 50 MG PO BID Oxaliplatin (Oxaliplatin), Unknown Dose IV BIWEEKLY Rituximab (Rituxan), Unknown Dose IV BIWEEKLY Rivaroxaban (Xarelto), 20 MG PO PM Umeclidinium-Vilanterol (Anoro Ellipta 62.5-25 Mcg/INH), 1 PUFF INH QAM Vancomycin Hcl (Vancomycin), 125 MG PO BID Scheduled PRN Amoxicillin & Pot Clavulanate (Amoxicillin/Clavulanate P), 1 TAB PO BID PRN for COPD Rescue Kit Ipratropium-Albuterol (Duoneb), 1 TREATMENT INH QID PRN for COPD Ondansetron (Ondansetron HCl), 8 MG PO Q8 PRN for Nausea Prednisone (Prednisone), 40 MG PO UD PRN for COPD Rescue Kit Prochlorperazine Maleate (Compazine), 10 MG PO Q8H PRN for Nausea Review of Systems Pertinent positives and negatives reviewed in HPI--all others negative Physical Exam Vital Signs Date Time Temp Pulse Resp B/P (MAP) Pulse Ox O2 Delivery O2 Flow Rate FiO2 04/08/17 17:18 98 Nasal Cannula 4.0 04/08/17 17:16 63 18 109/65 100 Nasal Cannula 4.0 04/08/17 15:06 36.5 66 18 131/72 95 Room Air General Appearance: no apparent distress, + obese Head: normocephalic, atraumatic Eyes: normal inspection, EOMI ENT: hearing grossly normal Neck: supple Respiratory/Chest: no respiratory distress, no accessory muscle use, + wheezing (diffuse) Cardiovascular: regular rate, rhythm, no edema Abdomen/GI: soft, + tenderness (mild epigastric TTP, as seen prior) Extremities/Musculoskelatal: no calf tenderness, no pedal edema Neurologic/Psych: alert, normal mood/affect, oriented x 3 Skin: normal color, warm/dry Diagnostics Laboratory Results Results Past 24 Hours Test 04/08/17 16:26 Range/Units White Blood Count 5.29 4.8-10.8 K/uL Red Blood Count 2.32 4.7-6.1 M/uL Hemoglobin 7.2 14.0-18.0 g/dL Hematocrit 21.0 42-52 % Mean Corpuscular Volume 90.5 80-100 fL Mean Corpuscular Hemoglobin 31.0 25-34 pg Mean Corpuscular Hemoglobin Concent 34.3 32-36 g/dl Platelet Count 15 130-400 K/uL Mean Platelet Volume 10.7 7.4-10.4 fL Neutrophils (%) (Auto) 80.5 % Lymphocytes (%) (Auto) 9.3 % Monocytes (%) (Auto) 5.5 % Eosinophils (%) (Auto) 2.8 % Basophils (%) (Auto) 1.1 % Neutrophils # (Auto) 4.26 1.4-6.5 K/uL Lymphocytes # (Auto) 0.49 1.2-3.4 K/uL Monocytes # (Auto) 0.29 0.11-0.59 K/uL Eosinophils # (Auto) 0.15 0-0.5 K/uL Basophils # (Auto) 0.06 0-0.2 K/uL RDW Standard Deviation 62.1 36.4-46.3 fL RDW Coefficient of Variation 18.7 11.5-14.5 % Immature Granulocyte % (Auto) 0.8 % Immature Granulocyte # (Auto) 0.04 0.00-0.02 K/uL Toxic Granulation 2+ Platelet Estimate SIGNIFIC DECREASED Tear Drop Cells 1+ Ovalocytes 1+ Prothrombin Time 11.3 9.0-12.0 SECONDS Prothromb Time International Ratio 1.1 0.9-1.1 Activated Partial Thromboplast Time 30.7 21.0-31.0 SECONDS Partial Thromboplastin Ratio 1.2 Sodium Level 138 136-145 mmol/L Potassium Level 4.1 3.5-5.1 mmol/L Chloride Level 102 98-107 mmol/L Carbon Dioxide Level 27 21-32 mmol/L Anion Gap 8.0 3-11 mmol/L Blood Urea Nitrogen 13 7-18 mg/dl Creatinine 0.85 0.60-1.40 mg/dl Est Creatinine Clear Calc Drug Dose 138.3 ml/min Estimated GFR () 109.0 Estimated GFR (Non- 94.0 BUN/Creatinine Ratio 15.5 10-20 Random Glucose 160 70-99 mg/dl Calcium Level 8.8 8.5-10.1 mg/dl Total Bilirubin 0.6 0.2-1 mg/dl Direct Bilirubin 0.2 0-0.2 mg/dl Aspartate Amino Transf (AST/SGOT) 70 15-37 U/L Alanine Aminotransferase (ALT/SGPT) 105 12-78 U/L Alkaline Phosphatase 128 45-117 U/L Troponin I < 0.015 0-0.045 ng/ml Total Protein 6.0 6.4-8.2 gm/dl Albumin 2.9 3.4-5.0 gm/dl Lipase 679 73-393 U/L EKG EKG with 1st degree AV block and incomplete RBBB, all seen on prior EKG Impression Assessment and Plan 61 y/o F who was admitted on 04/08 for anemia and thrombocytopenia Anemia/thrombocytopenia: Likely related to ongoing chemo 2 units PRBC and 1 pack of platelets ordered in the ED Will repeat CBC in AM and monitor Pt is on xarelto, will order hemoccult Follows with Dr. Amaro if needed Afib, hx of DVT: will continue xarelto for now given no overt signs of GIB and risks to pt if this is held given anemia is likely related to chemo DM: continue home meds A1c pending COPD: on 4L O2 continuous at baseline and no additional needs Nebs scheduled given wheezing Will avoid steroids at this time given no O2 sat issues B cell lymphoma: as above Cdiff: pt to complete course of PO vanco tomorrow night, will continue FRED: home BIPAP Tobacco use: nicotine patch PRN Other: Full code. Pt is quite clear that he does not want prolonged mechanical life support, feeding tubes. is present DM diet Xarelto for DVT proph, will need addressed further if xarelto needs held Level of Care Med/Surg Resuscitation Status FULL RESUSCITATION VTE Prophylaxis VTE Risk Assessment Done? Y/N: Yes Risk Level: Low
[2017-04-08 19:09] VITALS: BP 152/85; PULSE 62; TEMP 36.6; O2SAT 99; BMI 47.7
[2017-04-08] MEDS: ALBUT/IPRATROP 3MG/0.5MG NEB 3 ML VIAL INH SCH (19:25)
[2017-04-08] MEDS: BUDESONIDE 0.5 MG/2 ML VIAL (PULMICORT) INH SCH (20:09)
[2017-04-08 20:10] VITALS: PULSE 68; O2SAT 99
[2017-04-08] MEDS: METOPROLOL TARTRATE 50 MG TAB PO SCH (20:55)
[2017-04-08] MEDS: RASPBERRY SYRUP 5 ML UDP PO SCH (20:56)
[2017-04-08] MEDS: MAGNESIUM OXIDE 400 MG TAB PO SCH (20:56)
[2017-04-08] MEDS: INSULIN ASPART 100 UNITS/ML 3 ML PEN SC SCH (20:57)
[2017-04-08] MEDS ORDERED: RIVAROXABAN 20 MG TAB PO SCH (21:00)
[2017-04-08] MEDS ORDERED: INSULIN GLARGINE SOLOSTAR 100 UNITS/ML 3 ML PEN SC SCH (21:00)
[2017-04-08] MEDS: ENOXAPARIN 150 MG/1ML SYR SQ SCH (21:00)
[2017-04-08] MEDS ORDERED: GABAPENTIN 300 MG CAP PO SCH (21:00)
[2017-04-08] MEDS: VANCOMYCIN HCL 125 MG/2.5ML SOLN PO SCH (21:41)
[2017-04-09] VITALS (20 sets, daily range): BP systolic 100–137; BP diastolic 62–81; PULSE 58–78; TEMP 36.2–37.6; O2SAT 65–99; Ht 152.4 cm; Wt 155.5 kg
[2017-04-09 02:46] LABS: URINE APPEARANCE CLEAR (CLEAR); URINE BILIRUBIN NEG (NEG); URINE COLOR YELLOW; URINE NITRITE NEG (NEG); URINE PH 5.5 (4.5-7.5); URINE SPECIFIC GRAVITY 1.019 (1.000-1.030); UROBILINOGEN NEG (NEG)
[2017-04-09 02:49] LABS: MANUAL MICROSCOPIC REQUIRED? NO; REVIEW REQ? NO
[2017-04-09] MEDS: ALBUT/IPRATROP 3MG/0.5MG NEB 3 ML VIAL INH SCH ×3 (07:06→15:21)
[2017-04-09] MEDS: BUDESONIDE 0.5 MG/2 ML VIAL (PULMICORT) INH SCH (07:06)
[2017-04-09] MEDS: RASPBERRY SYRUP 5 ML UDP PO SCH (07:45)
[2017-04-09] MEDS: VANCOMYCIN HCL 125 MG/2.5ML SOLN PO SCH (07:45)
[2017-04-09] MEDS: MAGNESIUM OXIDE 400 MG TAB PO SCH (07:48)
[2017-04-09] MEDS: METOPROLOL TARTRATE 50 MG TAB PO SCH (07:48)
[2017-04-09] MEDS ORDERED: DULOXETINE HCL 20 MG CAP PO SCH (08:00)
[2017-04-09] MEDS ORDERED: INSULIN GLARGINE SOLOSTAR 100 UNITS/ML 3 ML PEN SC SCH (08:00)
[2017-04-09] MEDS ORDERED: DILTIAZEM HCL 120 MG EXT REL CAP PO SCH (08:00)
[2017-04-09] MEDS ORDERED: FUROSEMIDE 40 MG TAB PO SCH (09:00)
[2017-04-09] MEDS: INSULIN ASPART 100 UNITS/ML 3 ML PEN SC SCH ×2 (09:12→12:41)
[2017-04-09] MEDS: ENOXAPARIN 150 MG/1ML SYR SQ SCH (09:14)
[2017-04-09 13:45] LABS: MEAN CELL VOLUME 88.5 fL (80-100); MEAN CORPUSCULAR HEMOGLOBIN 30.4 pg (25-34); MEAN CORPUSCULAR HGB CONC 34.3 g/dl (32-36); MEAN PLATELET VOLUME 10.1 fL (7.4-10.4); PLATELET COUNT 27 K/uL (130-400); WHITE BLOOD COUNT 5.18 K/uL (4.8-10.8)
--- NOTE | 2017-04-09 15:34 | Discharge Instructions ---
Discharge Instructions Date of Service Apr 09, 2017. Admission Reason for Admission: Anemia Discharge Discharge Diagnosis / Problem: Anemia, thrombocytopenia from chemotherapy Discharge Goals Goal(s): Improve function, Diagnostic testing Activity Recommendations Activity Limitations: resume your previous activity . Instructions / Follow-Up Instructions / Follow-Up Medications: no changes, finish course of Vancomycin Please get CBC on 04/[address] Amaro, may need further transfusion Current Hospital Diet Patient's current hospital diet: Diabetes Type 2 Diet Discharge Diet Recommended Diet: Diabetes Type 2 Diet Pending Studies Studies pending at discharge: no Laboratory Results Hemoglobin A1c Test 04/09/17 12:52 Range/Units Estimated Average Glucose 140 mg/dl Hemoglobin A1c 6.5 H 4.5-5.6 % Medical Emergencies . Who to Call and When: Medical Emergencies: If at any time you feel your situation is an emergency, please call 911 immediately. . Non-Emergent Contact Non-Emergency issues call your: Oncologist . . "Provider Documentation" section prepared by Enio Wan. . VTE Core Measure Inpt VTE Proph given/why not?: Contraindicated [place] Drug Monitoring Program Search Results: no issues identified
--- NOTE | 2017-04-10 21:23 | Discharge Summary ---
Discharge Summary Date of Service Apr 09, 2017. Discharge Summary Admission Date: Apr 08, 2017 at 17:52 Discharge Date: Apr 09, 2017 Principal Diagnosis: Anemia and thrombocytopenia secondary to chemotherapy Problems/Secondary Diagnoses: (1) Anticoagulants,Lt,Current Use Status: Chronic (2) B-cell lymphoma Status: Chronic (3) Chronic Atrial Fibrillation Status: Chronic (4) COPD (chronic obstructive pulmonary disease) Status: Chronic (5) Dependence On Supplemental Oxygen Status: Chronic (6) Gout, Unspecified Status: Chronic (7) Hypertension Status: Chronic (8) Obstructive Sleep Apnea (Adult) (Pediatric) Status: Chronic Procedures: PRBC and platelet transfusion Consultations: none Medication Reconciliation Continued Medications: Amoxicillin & Pot Clavulanate (Amoxicillin/Clavulanate P) 1 Tab Tab 1 TAB PO BID PRN for COPD Rescue Kit for 10 Days, #20 TAB COPD RESCUE KIT Budesonide (Inhalation) (Pulmicort) 1 Mg/2 Ml Olga 2 ML NEB BID MIX WITH DUONEB TWICE DAILY Diltiazem Hcl Extended Release (Diltiazem Hcl Er) 120 Mg Cap 240 MG PO QAM Duloxetine HCl (Cymbalta) 20 Mg Cap 40 MG PO DAILY, CAP Furosemide (Furosemide) 40 Mg Tab 40 MG PO DAILY 40 mg every other day and then 60 mg alternate every other day Furosemide (Furosemide) 20 Mg Tab 20 MG PO Q2D TAKE THIS MEDICATION IN ADDITION TO 40 MG DAILY DOSE EVERY OTHER DAY Gabapentin (Gabapentin) 300 Mg Cap 300 MG PO QPM Gemcitabine Hcl (Gemcitabine) 1 Gm/26.3 Ml Inj IV BIWEEKLY Home O2 Therapy (Oxygen) Gas 4 LITER NA CONTINOUS 5 LITERS WHEN ACTIVE Insulin Glargine (Lantus Solostar) 100 Unit/Ml Inj 28 UNITS SC QAM Insulin Glargine (Lantus Solostar) 100 Unit/Ml Inj 6 UNITS SC QPM Insulin Lispro (Human) (Humalog) 100 Unit/Ml Inj 1 DOSE SQ SLIDING SCALE Ipratropium-Albuterol (Duoneb) 3 Ml Nebu 1 TREATMENT INH QID PRN for COPD, INHA Magnesium Oxide (Mg Supplement (Magnesium) 250 Mg Tab 1 TAB PO BID Metoprolol Tartrate (Metoprolol Tartrate) 50 Mg Tab 50 MG PO BID Ondansetron (Ondansetron HCl) 8 Mg Tab 8 MG PO Q8 PRN for Nausea ALTERNATE WITH COMPAZINE Oxaliplatin (Oxaliplatin) 100 Mg Inj Unknown Dose IV BIWEEKLY Prednisone (Prednisone) 20 Mg Tab 40 MG PO UD PRN for COPD Rescue Kit COPD RESCUE KIT FOLLOWS: TAKE 2 TABLETS (40 MG) DAILY FOR 5 DAYS Prochlorperazine Maleate (Compazine) 10 Mg Tab 10 MG PO Q8H PRN for Nausea, TAB ALTERNATE WITH ZOFRAN Rituximab (Rituxan) 10 Mg/Ml Inj Unknown Dose IV BIWEEKLY Rivaroxaban (Xarelto) 20 Mg Tab 20 MG PO PM Umeclidinium-Vilanterol (Anoro Ellipta 62.5-25 Mcg/INH) 1 Aer Aer 1 PUFF INH QAM Vancomycin Hcl (Vancomycin) 125 Mg Cap 125 MG PO BID 2X DAILY AT START OF EACH CHEMO Discharge Exam Patient seen in the morning on 04/09, doing well, tolerating transfusions. Said he already felt better and stronger. Reviewed repeat labs, Hb up to 7.9 and platelets 27. No signs of bleeding during admission and recent bleeding issues. Discussed transfusions in the past, he said that he had one a few weeks ago at the cancer center. Visited later in the day, he continued to feel well, breathing well, no chest pain, appetite normal. Urinating normally and moving bowels. Discussed going home since he had received transfusion and likely would not need any additional transfusions. Discussed getting a CBC on 04/[address] Amaro, he could get additional transfusions if needed as outpatient. He agreed with this plan. Review of Systems: Constitutional: + weakness, + fatigue, No fever, No chills, No sweats, No weight loss, No problem reported Eyes: No worsening of vision, No eye pain, No redness, No discharge, No diplopia, No problem reported ENT: No hearing loss, No unusual epistaxis, No nasal symptoms, No sore throat, No tinnitus, No dental problems, No trouble swallowing, No problem reported Respiratory: + dyspnea on exertion, No cough, No sputum, No wheezing, No shortness of breath, No dyspnea at rest, No hemoptysis, No problem reported Cardiovascular: No chest pain, No orthopnea, No PND, No edema, No claudication, No palpitations, No problem reported Abdomen: No pain, No nausea, No vomiting, No diarrhea, No constipation, No GI bleeding, No problem reported Musculoskeletal: No joint pain, No muscle pain, No swelling, No calf pain, No problem reported Genitourinary - Male: No hematuria, No dysuria, No urinary frequency, No urinary urgency Neurologic: + numbness/tingling (peripheral neuropathy associated with chemotherapy), No memory loss, No paralysis, No weakness, No vertigo, No balance problems, No problem reported Psychiatric: No depression symptoms, No anhedonism, No anxiety, No insomnia , No substance abuse, No problem reported Endocrine: No fatigue, No excessive thirst, No excessive urination, No problem reported Hematologic / Lymphatic: No abnormal bleeding/bruising, No clotting problems , No swollen lymph nodes, No night sweats, No problem reported Integumentary: No rash, No itch, No new/changing skin lesions, No color change, No bleeding, No problem reported Physical Exam: General Appearance: no apparent distress, + obese Eyes: normal inspection, EOMI, sclerae normal Neck: supple, no adenopathy, no JVD, trachea midline Respiratory/Chest: chest non-tender, lungs clear, normal breath sounds, no respiratory distress, no accessory muscle use Cardiovascular: regular rate, rhythm, no edema, no gallop, no JVD, no murmur , normal peripheral pulses Abdomen / GI: normal bowel sounds, non tender, soft, no organomegaly Extremities: normal inspection, no calf tenderness, normal capillary refill , no pedal edema, normal range of motion, pelvis stable Neurologic/Psychiatric: 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-XII nml as tested, no motor/sensory deficits , alert, normal mood/affect, normal reflexes, oriented x 3 Skin: normal color, warm/dry, no rash Hospital Course 61 y/o F who was admitted on 04/08 for anemia and thrombocytopenia Anemia/thrombocytopenia: Likely related to ongoing chemo, required prior transfusion 4-5 weeks ago 2 units PRBC and 1 pack of platelets transfused repeat Hb up to 7.9 but it was drawn just after 2nd unit, repeat platelet count 27 patient feels well, no fatigue, no dyspnea on exertion discussed going home and getting rest, repeat CBC on 04/12, script provided patient will follow up closely with Dr. Amaro for any further transfusions Afib, hx of DVT: will continue xarelto for now given no overt signs of GIB and risks to pt if this is held given anemia is likely related to chemo DM: continue home meds A1c 6 COPD: on 4L O2 continuous at baseline and no additional needs Nebs scheduled given wheezing Will avoid steroids at this time given no O2 sat issues B cell lymphoma: as above Cdiff: last dose in the evening on 04/09, patient will follow up with PCP [facility]: home BIPAP Tobacco use: nicotine patch PRN Other: Full code. Pt is quite clear that he does not want prolonged mechanical life support, feeding tubes. is present DM diet Xarelto for DVT proph, will need addressed further if xarelto needs held Total Time Spent: Greater than 30 minutes This includes examination of the patient, discharge planning, medication reconciliation, and communication with other providers. Discharge Instructions Please refer to the electronic Patient Visit Report (Discharge Instructions) for additional information. Follow-Up Dr. Amaro as previously scheduled Additional Copies To Frederick Amaro D.O.; Nery Grace M.D.
== END 2017-04-09 16:30 | disposition home or self-care (01) | DRG 813 ==
LOC: C.EDB 15:06 → C.4E 17:52 → ENRESERV 18:00
PROVIDERS: ADMIT Family Medicine; ATTEND Internal Medicine
DX: D69.59 Other secondary thrombocytopenia (principal); D64.81 Anemia due to antineoplastic chemotherapy; C85.10 Unspecified B-cell lymphoma, unspecified site; A04.72 Enterocolitis due to Clostridium difficile, not specified as recurrent; T45.1X5A Adverse effect of antineoplastic and immunosuppressive drugs, initial encounter; Z79.01 Long term (current) use of anticoagulants; I48.2 Chronic atrial fibrillation; M1A.9XX0 Chronic gout, unspecified, without tophus (tophi); G47.33 Obstructive sleep apnea (adult) (pediatric); Z87.891 Personal history of nicotine dependence; J44.9 Chronic obstructive pulmonary disease, unspecified; Z86.718 Personal history of other venous thrombosis and embolism; I10 Essential (primary) hypertension; Y92.019 Unspecified place in single-family (private) house as the place of occurrence of the external cause

== ENCOUNTER → 2017-04-08 | Outpatient (CLI) | payer BC ==
[~2017-04-08] MED LIST changes: +DULO-24 PO; +INSU100I SQ; +MAGN250T8 PO; -MCRK20 PO; +PROC1TAB5 PO; +VANC5CAP PO
[2017-04-08 12:43] LABS: MEAN CELL VOLUME 91.3 fL (80-100); MEAN CORPUSCULAR HEMOGLOBIN 30.3 pg (25-34); MEAN CORPUSCULAR HGB CONC 33.2 g/dl (32-36); PLATELET COUNT 23 K/uL (130-400); RED BLOOD COUNT 2.41 M/uL (4.7-6.1)
[2017-04-08 12:58] LABS: ANISOCYTOSIS PRESENT; BASO % 1.2 %; BASO ABS # 0.05 K/uL (0-0.2); COMPLETE YES; DOHLE BODIES 1+; EOS % 2.9 %; IG% 0.5 %; LYMPH ABS # 0.42 K/uL (1.2-3.4); MONO % 7.6 %; NEUT % 77.8 %; PLT ESTIMATE SIGNIFIC DECREASED; TOXIC GRANULATION 2+; VACUOLIZATION 1+
== END | disposition home or self-care (01) ==
LOC: C.LABPBG 10:57
PROVIDERS: ATTEND Family Medicine
DX: R55 Syncope and collapse (principal)

== ENCOUNTER → 2017-04-12 | Outpatient (CLI) | payer BC ==
[~2017-04-12] MED LIST changes: -CMP10 PO; -LCTX PO; +MAGN250T8 PO; -MGNO400 PO; -MULT-190 PO; -OMG3 PO; +PROC1TAB5 PO
[2017-04-12 12:16] LABS: HEMATOCRIT 28.4 % (42-52); MEAN CELL VOLUME 92.5 fL (80-100); MEAN CORPUSCULAR HEMOGLOBIN 30.3 pg (25-34); MEAN CORPUSCULAR HGB CONC 32.7 g/dl (32-36); RED BLOOD COUNT 3.07 M/uL (4.7-6.1)
[2017-04-12 12:39] LABS: MEAN PLATELET VOLUME 10.8 fL (7.4-10.4); PLATELET COUNT 86 K/uL (130-400)
[2017-04-12 12:40] LABS: PLT ESTIMATE DECREASED
== END | disposition home or self-care (01) ==
LOC: C.LABPBG 09:20
PROVIDERS: ATTEND Internal Medicine Hematology & Oncology
DX: C85.90 Non-Hodgkin lymphoma, unspecified, unspecified site (principal); D64.9 Anemia, unspecified

== ENCOUNTER → 2017-05-20 | Outpatient (CLI) | payer BC ==
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
== END | disposition home or self-care (01) ==
LOC: C.RAD1850 11:35
PROVIDERS: ATTEND Family Medicine
DX: J44.9 Chronic obstructive pulmonary disease, unspecified (principal)

== ENCOUNTER → 2017-07-07 | Outpatient (CLI) | payer BC ==
[~2017-07-07] MED LIST changes: +BUDE180I INH; +CEPH500C2 PO; +CYM20 PO; +DOXY100C76 PO; +GABA-1219 PO; -GABA1CAP4 PO; +INSU100I2 SC; +IPRA-64 INH; -IPRASOL4 INH; +ONDA-170 PO; +OPTIRAY 320 IV PRN; +PROC10TA PO; -PROC1TAB5 PO; +RXC5 PO; +TPRSR/50 PO; +[UNRECOGNIZED DRUG - CODE] IV; -[UNRECOGNIZED DRUG - CODE] IV
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
== END | disposition home or self-care (01) ==
LOC: C.CTS 14:38
PROVIDERS: ATTEND Nurse Practitioner Family
DX: C83.30 Diffuse large B-cell lymphoma, unspecified site (principal); R59.1 Generalized enlarged lymph nodes; R16.1 Splenomegaly, not elsewhere classified; I51.7 Cardiomegaly

== ENCOUNTER 2017-08-14 12:27 | Emergency (ER) | payer BC ==
[~2017-08-14] VITALS: Ht 180.3 cm; Wt 158.0 kg
[~2017-08-14 12:27] MED LIST changes: -BUDE180I INH; -BUDE1SUS NEB; -CEPH500C2 PO; -CYM20 PO; -DILT120C67 PO; -DOXY100C76 PO; -GABA-1219 PO; -INSDGIPEN SC; -INSU100I2 SC; -IPRA-64 INH; -LSX40 PO; -MAGN250T8 PO; -METO50TA17 PO; -ONDA-170 PO; -OPTIRAY 320 IV PRN; -OXGN; -PROC10TA PO; +PROC1TAB5 PO; -RXC5 PO; -TPRSR/50 PO; -XRL20 PO
[2017-08-14 12:35] VITALS: Ht 180.3 cm; Wt 158.0 kg
[2017-08-14] MEDS ORDERED: OXYCODONE HCL IR 5 MG TAB (IMMEDIATE RELEASE) PO STA (12:54)
--- NOTE | 2017-08-14 14:46 | DIAGNOSTIC IMAGING REPORT ---
L EXTREMITY NONVASCULAR LIMITED CLINICAL HISTORY: LEFT LATERAL CHEST/BREAST, EVAL FOR ABSCESS mass TECHNIQUE: Ultrasound COMPARISON STUDY: None FINDINGS: 4 x 3 x 5 cm complex partially cystic structure which potentially represents hematoma, versus seroma versus node. It is well-circumscribed. No additional findings are present. This has been present on to prior CT exams of the chest and is known. IMPRESSION: 4 x 3 x 5 cm partially cystic nodule within the left axilla. 2. This corresponds to a density previously seen at least to CTs of the chest and potentially represents a stable node, versus seroma. 3. This is not considered a new or interval finding. The above report was generated using voice recognition software. It may contain grammatical, syntax or spelling errors. Electronically signed by: Fadi Ng M.D. 08/14/2017 2:45 PM Dictated Date/Time: 08/14/2017 2:42 PM
[2017-08-14] MEDS ORDERED: DOXYCYCLINE HYCLATE 100 MG CAP PO STA (15:12)
[2017-08-14] MEDS ORDERED: CEPHALEXIN 500MG HOME PACK 1 EA BTL PO ONE (15:15)
[2017-08-14] MEDS ORDERED: DOXY100C76 PO (15:28)
--- NOTE | 2017-08-14 15:29 | EMERGENCY ROOM VISIT NOTE ---
ED Visit Note First contact with patient: 12:38 CHIEF COMPLAINT: Infection of left lateral chest wall 2-3 days HISTORY OF PRESENT ILLNESS: Patient is a 61-year-old white male with past medical history significant for oxygen dependent COPD, B-cell lymphoma, last chemotherapy treatment was in March 2017, hypertension, atrial fibrillation , and history of DVT, chronically anticoagulated with Xarelto, diabetes, among other medical problems who presents emergency department for evaluation of a suspected infection in the left axillary region. Patient notes that he had some lymph nodes removed from the left axilla in the past. He states that he noticed some redness, warmth, swelling and tenderness under his left arm, near the chest wall. He was seen at the urgent care center in [place] and prescribed Keflex 500 mg 3 times daily for 7 days, but he has not yet started the antibiotic because his pharmacy was not open. He states that they marked the area of redness with a marking pen yesterday and the redness has spread, which prompted him to come here to the emergency department. He reports chronic fatigue and shortness of breath, he has not had any fevers. He reports a very remote history of skin abscesses in the past, he is not aware of a prior diagnosis of MRSA. REVIEW OF SYSTEMS: Review of systems as per HPI. All other systems reviewed were negative. At least 6 systems reviewed. PMH: Electronic medical records are reviewed and summarized as above/below. See Problem List. He reports that his tetanus is up-to-date. SOCIAL HISTORY: Patient lives at home with his spouse. He is disabled. Former smoker. PHYSICAL EXAM: Vital Signs: Reviewed Nurse's notes. CONSTITUTIONAL: Patient is a pleasant, well-appearing 61-year-old white male who is awake and alert and in no acute distress. INTEGUMENTARY: Examination of the left axillary region show a well-healed surgical scars, there is some bulky fullness of the axilla which is nontender. The area in question is actually inferior to the axilla, almost in the lateral left breast region/chest wall. There is a well-demarcated area of erythema and induration, not overtly cellulitic. He is tender in the anterior portion of that erythema, but there is no palpable fluctuance noted. There is no lymphangitic streaking. Range of motion of the left arm is full for the patient. Left upper extremity is neurovascularly intact. EMERGENCY DEPARTMENT COURSE: The patient was seen and evaluated as above. His old records are reviewed. He had a CT scan in July of this year which noted a left axillary seroma measuring roughly 3.6 x 3.2 cm, which appeared stable. On examination today, he does have some erythema of the skin, concerning for early cellulitis, but palpable abscess is difficult to appreciate, in part due to body habitus. The area was ultrasounded, which per radiology show a 4 x 3 x 5 cm complex cystic structure likely representing the known seroma. It appears stable and is not a new finding. The patient was reviewed with attending physician. He has some early signs of infection, however has not been on any antibiotics. He does not appear to have a well-defined abscess. He is certainly not ill or toxic in appearance. Supportive care measures were discussed. The patient was encouraged to apply warm compresses to the area. He was advised to orange picker the prescription for Keflex that had been previously prescribed by the urgent care center, and was also started on doxycycline for bladder coverage. I suspect that if he does develop an abscess or if the seroma but appears infected, he will require a more formal surgical I&D the and can be done at the bedside in the emergency department, given the depth and the complexity of his anatomy. I discussed with the patient and he expressed understanding. He was educated on the worrisome signs or symptoms for which she should return to the emergency department. He was discharged home with his in good condition. He was given a dose of Keflex and doxycycline in the emergency department prior to discharge. Differential diagnoses entertained included cellulitis, abscess, seroma, mass or malignancy, among others. Medication reconciliation: I attest that I have personally reviewed the patient' s current medication list. Blood pressure screening : Patient was found to have normal blood pressure on screening and does not require follow-up. L EXTREMITY NONVASCULAR LIMITED CLINICAL HISTORY: LEFT LATERAL CHEST/BREAST, EVAL FOR ABSCESS mass TECHNIQUE: Ultrasound COMPARISON STUDY: None FINDINGS: 4 x 3 x 5 cm complex partially cystic structure which potentially represents hematoma, versus seroma versus node. It is well-circumscribed. No additional findings are present. This has been present on to prior CT exams of the chest and is known. IMPRESSION: 4 x 3 x 5 cm partially cystic nodule within the left axilla. 2. This corresponds to a density previously seen at least to CTs of the chest and potentially represents a stable node, versus seroma. 3. This is not considered a new or interval finding. Problem List Medical Problems: (1) Abdominal pain Status: Resolved (2) Anemia Status: Resolved (3) Anticoagulants,Lt,Current Use Status: Chronic (4) Atrial fibrillation with rapid ventricular response Status: Resolved (5) B-cell lymphoma Status: Chronic (6) B-cell lymphoma Status: Chronic (7) Cellulitis and abscess of leg, except foot Status: Resolved (8) Chronic Atrial Fibrillation Status: Chronic (9) COPD (chronic obstructive pulmonary disease) Status: Chronic (10) COPD exacerbation Status: Resolved (11) Dependence On Supplemental Oxygen Status: Chronic (12) DVT (deep venous thrombosis) Status: Resolved (13) Episode of syncope Status: Resolved (14) Facial contusion Status: Resolved (15) Fall Status: Resolved (16) Fracture of rib of left side Status: Resolved (17) Gout, Unspecified Status: Chronic (18) HCAP (healthcare-associated pneumonia) Status: Resolved (19) Hypertension Status: Chronic (20) Hypoxemia Status: Resolved (21) Hypoxia Status: Resolved (22) Injury of left leg Status: Resolved (23) Injury of left lower arm Status: Resolved (24) New onset atrial fibrillation Status: Resolved (25) Obstructive Sleep Apnea (Adult) (Pediatric) Status: Chronic (26) Traumatic closed fracture of one rib of left side with minimal displacement Status: Resolved Current/Historical Medications Scheduled Budesonide (Inhalation) (Pulmicort), 2 ML NEB BID Diltiazem Hcl Extended Release (Diltiazem Hcl Er), 240 MG PO QAM Doxycycline Monohydrate (Monodox), 100 MG PO BID Duloxetine HCl (Cymbalta), 40 MG PO DAILY Furosemide (Furosemide), 40 MG PO DAILY Gabapentin (Gabapentin), 300 MG PO QPM Home O2 Therapy (Oxygen), 4 LITER NA CONTINOUS Insulin Glargine (Lantus Solostar), 28 UNITS SC QAM Insulin Glargine (Lantus Solostar), 10 UNITS SC QPM Insulin Lispro (Human) (Humalog), 1 DOSE SQ SLIDING SCALE Magnesium Oxide (Mg Supplement (Magnesium), 250 MG PO BID Metoprolol Tartrate (Metoprolol Tartrate), 50 MG PO BID Rivaroxaban (Xarelto), 20 MG PO PM Scheduled PRN Ipratropium-Albuterol (Duoneb), 1 TREATMENT INH QID PRN for COPD Allergies Coded Allergies: Aspirin (Verified Allergy, Severe, ANAPHYLAXIS, 08/14/17) Ibuprofen (Verified Allergy, Intermediate, HIVES, 08/14/17) Acetaminophen (Verified Allergy, Mild, HIVES, 08/14/17) Vital Signs Date Time Temp Pulse Resp B/P (MAP) Pulse Ox O2 Delivery O2 Flow Rate FiO2 08/14/17 15:37 37.2 78 20 120/65 96 08/14/17 12:35 37.2 78 20 120/65 96 Nasal Cannula 3.0 Medications Administered Medications (Trade) Dose Ordered Sig/Moose Route Start Time Stop Time Status Last Admin Dose Admin Oxycodone HCl (Roxicodone Immediate Rel Tab) 10 mg NOW STAT PO 08/14/17 12:54 08/14/17 12:56 DC 08/14/17 13:08 10 MG Doxycycline Hyclate (Vibramycin Cap) 100 mg NOW STAT PO 08/14/17 15:12 08/14/17 15:14 DC 08/14/17 15:21 100 MG Departure Information Impression Primary Impression: Cellulitis of chest wall Prescriptions Doxycycline Monohydrate (Monodox) 100 Mg Cap 100 MG PO BID, #14 CAP Prov: Edel Cortes PA 08/14/17 Referrals Nery Grace M.D. (PCP) Patient Instructions My [facility] Additional Instructions Cephalexin(Keflex) 500mg: Take one pill 3 times daily for 7 days for your skin infection. (As prescribed by the urgent care center). All antibiotics can cause diarrhea. If this occurs and you feel worse or it does not resolve in 1-2 days follow up with your doctor or return to the Emergency Department as this could be signs of serious underlying problems. Any medication can cause an allergic reaction, stop the pills immediately and return to the ER for rash, hives, breathing difficulties, or swelling. Doxycycline 100mg: Take one pill twice daily for seven days for your infection. Take with food, but avoid dairy. Avoid prolonged sun exposure since this medication makes you temporarily more susceptible to sunburns. All antibiotics can cause diarrhea. If this occurs and you feel worse or it does not resolve in 1-2 days follow up with your doctor or return to the Emergency Department as this could be signs of serious underlying problems. Any medication can cause an allergic reaction, stop the pills immediately and return to the ER for rash, hives, breathing difficulties, or swelling. Ibuprofen(Motrin, Advil) may be used for fever or pain. Use 600mg every six hours as needed. Take with food. Avoid using more than 2400mg in a 24 hour period. Do not use 2400mg per day for more than three consecutive days without physician direction. Prolonged inappropriate use can lead to stomach upset or ulcers. This is available over the counter and typically comes in 200mg tablets. (AND/OR) Acetaminophen(Tylenol) may be used for fever or pain. Use 1000mg every eight hours as needed. Avoid using more than 3000mg in a 24 hour period. This is available over the counter. Read all the package inserts or medication information paperwork provided. If you have any questions or concerns call your primary provider, pharmacist or the ER for assistance. Warm compresses to the affected area 4 times daily for 15-20 minutes. Rest and drink plenty of fluids. Continue current medications. Return to the ER for severe pain, persistent fevers, spreading redness, or any worsening of your condition. Follow up with your primary physician within 2-3 days for a recheck of the current condition.
[2017-08-14 15:37] VITALS: BP 120/65; PULSE 78; TEMP 37.2; O2SAT 96
[2017-08-16] MEDS ORDERED: OXGN (07:32)
[2017-08-16] MEDS ORDERED: INSDGIPEN SC ×2 (09:51→16:03)
[2017-08-16] MEDS ORDERED: IPRASOL4 INH (13:01)
== END 2017-08-14 15:38 | disposition home or self-care (01) ==
LOC: C.EDB 12:28 → C.EDD 15:38
DX: L03.313 Cellulitis of chest wall (principal); J44.9 Chronic obstructive pulmonary disease, unspecified; I10 Essential (primary) hypertension; E11.9 Type 2 diabetes mellitus without complications; I48.91 Unspecified atrial fibrillation; C85.10 Unspecified B-cell lymphoma, unspecified site; M79.81 Nontraumatic hematoma of soft tissue; Z86.718 Personal history of other venous thrombosis and embolism; Z87.2 Personal history of diseases of the skin and subcutaneous tissue; Z99.81 Dependence on supplemental oxygen; Z79.01 Long term (current) use of anticoagulants; Z79.4 Long term (current) use of insulin; Z88.6 Allergy status to analgesic agent

== ENCOUNTER 2017-08-16 15:16 | Emergency (ER) | payer BC ==
[~2017-08-16] VITALS: Ht 180.3 cm; Wt 156.0 kg
[~2017-08-16 15:16] MED LIST changes: -AMOX1TAB43 PO; +DOXY100C76 PO; -GEMC1INJ IV; +INSDGIPEN SC; +IPRASOL4 INH; -LSX20 PO; -ONDA-63 PO; +OXGN; -PRED20TA PO; -PROC1TAB5 PO; -RTXI100 IV; -UMEC1AER INH; -VANC5CAP PO; -[UNRECOGNIZED DRUG - CODE] IV
[2017-08-16 15:24] VITALS: TEMP 38.2; Ht 180.3 cm; Wt 156.0 kg
[2017-08-16] MEDS ORDERED: CEFTRIAXONE SOD INJ 1 GM ADDVIAL IV STA (15:59)
[2017-08-16] MEDS ORDERED: INSDGIPEN SC (16:03)
[2017-08-16] MEDS ORDERED: MAGN250T8 PO (16:03)
[2017-08-16 16:21] LABS: BASO % 0.4 %; BASO ABS # 0.03 K/uL (0-0.2); EOS % 3.8 %; EOS ABS # 0.32 K/uL (0-0.5); HEMATOCRIT 32.5 % (42-52); HEMOGLOBIN 11.1 g/dL (14.0-18.0); IG# 0.08 K/uL (0.00-0.02); LYMPH % 9.4 %; LYMPH ABS # 0.79 K/uL (1.2-3.4); MEAN CELL VOLUME 84.9 fL (80-100); MEAN CORPUSCULAR HGB CONC 34.2 g/dl (32-36); MEAN PLATELET VOLUME 7.9 fL (7.4-10.4); MONO ABS # 0.67 K/uL (0.11-0.59); NEUT % 77.4 %; NEUT ABS # 6.53 K/uL (1.4-6.5); PLATELET COUNT 196 K/uL (130-400); RED CELL DISTRIBUTION WIDTH CV 16.2 % (11.5-14.5); RED CELL DISTRIBUTION WIDTH SD 49.9 fL (36.4-46.3); WHITE BLOOD COUNT 8.42 K/uL (4.8-10.8)
[2017-08-16 16:41] LABS: CALCIUM 8.2 mg/dl (8.5-10.1); POTASSIUM 3.8 mmol/L (3.5-5.1)
[2017-08-16] MEDS ORDERED: CEPH500C2 PO (17:09)
--- NOTE | 2017-08-16 17:11 | EMERGENCY ROOM VISIT NOTE ---
History First contact with patient: 15:48 Chief Complaint: INFECTION Stated Complaint: CELLULITIS OF CHEST WALL Nursing Triage Summary: Patient presents to triage via wheelchair, states "I have a lump on the left side of my chest that is swollen, sore and red. I was here on Tuesday and they told me I had cellulitis of the chest wall. It isn't getting better. I am taking Keflex and Doxycycline." Patient reports he has had this issue since last week. History of Present Illness The patient is a 61 year old male who presents to the Emergency Room with complaints of increased redness of the left chest wall. The patient was initially seen at [facility] for his symptoms. He was placed on Keflex but had not gotten the prescription filled by the time he was seen here on Tuesday which was 2 days ago. The patient has been compliant with both the Keflex and the doxycycline. The patient states the redness has gone outside the lines which were drawn by the PA on Tuesday. The patient denies any drainage from the area. The patient denies any fever. The patient is diabetic and states his sugars have been higher. The patient states that his symptoms started 5 days ago. Review of Systems 10 system review was performed and was negative unless stated otherwise history of present illness. Past Medical/Surgical History Medical Problems: (1) Abdominal pain (2) Anemia (3) Anticoagulants,Lt,Current Use (4) Atrial fibrillation with rapid ventricular response (5) B-cell lymphoma (6) B-cell lymphoma (7) Cellulitis and abscess of leg, except foot (8) Chronic Atrial Fibrillation (9) COPD (chronic obstructive pulmonary disease) (10) COPD exacerbation (11) Dependence On Supplemental Oxygen (12) DVT (deep venous thrombosis) (13) Episode of syncope (14) Facial contusion (15) Fall (16) Fracture of rib of left side (17) Gout, Unspecified (18) HCAP (healthcare-associated pneumonia) (19) Hypertension (20) Hypoxemia (21) Hypoxia (22) Injury of left leg (23) Injury of left lower arm (24) New onset atrial fibrillation (25) Obstructive Sleep Apnea (Adult) (Pediatric) (26) sob, copd exac, and pleural effusion (27) Traumatic closed fracture of one rib of left side with minimal displacement Family History Cancer Lung disease Social History Smoking Status: Former Smoker Alcohol Use: none Drug Use: none Marital Status: Housing Status: lives with family Occupation Status: employed Current/Historical Medications Scheduled Budesonide (Inhalation) (Pulmicort), 2 ML NEB BID Diltiazem Hcl Extended Release (Diltiazem Hcl Er), 240 MG PO QAM Doxycycline Monohydrate (Monodox), 100 MG PO BID Duloxetine HCl (Cymbalta), 40 MG PO DAILY Furosemide (Furosemide), 40 MG PO DAILY Gabapentin (Gabapentin), 300 MG PO QPM Home O2 Therapy (Oxygen), 4 LITER NA CONTINOUS Insulin Glargine (Lantus Solostar), 28 UNITS SC QAM Insulin Glargine (Lantus Solostar), 10 UNITS SC QPM Insulin Lispro (Human) (Humalog), 1 DOSE SQ SLIDING SCALE Magnesium Oxide (Mg Supplement (Magnesium), 250 MG PO BID Metoprolol Tartrate (Metoprolol Tartrate), 50 MG PO BID Rivaroxaban (Xarelto), 20 MG PO PM Scheduled PRN Ipratropium-Albuterol (Duoneb), 1 TREATMENT INH QID PRN for COPD Physical Exam Vital Signs Date Time Temp Pulse Resp B/P (MAP) Pulse Ox O2 Delivery O2 Flow Rate FiO2 08/16/17 15:24 38.2 72 20 102/61 97 Nasal Cannula 3.0 Physical Exam GENERAL: 61-year-old morbidly obese white male appears in no acute distress. MENTAL Status: Alert and oriented 3. NECK: Supple, no lymphadenopathy noted. No carotid bruits noted. LUNGS: Clear auscultation without wheezes rales or rhonchi. CARDIAC: Regular rate and rhythm without murmur. Pulses is full and equal throughout. CHEST: ON THE LEFT CHEST WALL JUST BELOW THE NIPPLE LINE AND LATERALLY LOCATED THERE IS AN AREA OF ERYTHEMA WHICH HAS BEEN MARKED. THE REDNESS GOES APPROXIMATELY 1.5 CM OUTSIDE THE LINE. THE AREA IS FIRM AND NO CENTRAL FLUCTUANCE IS NOTED. NO STREAKING NOTED. Medical Decision & Procedures Laboratory Results 08/16/17 16:05 Red Blood Count 3.83, Mean Corpuscular Volume 84.9, Mean Corpuscular Hemoglobin 29.0, Mean Corpuscular Hemoglobin Concent 34.2, Mean Platelet Volume 7.9, Neutrophils (%) (Auto) 77.4, Lymphocytes (%) (Auto) 9.4, Monocytes (%) (Auto) 8.0, Eosinophils (%) (Auto) 3.8, Basophils (%) (Auto) 0.4, Neutrophils # (Auto) 6.53, Lymphocytes # (Auto) 0.79, Monocytes # (Auto) 0.67, Eosinophils # (Auto) 0.32, Basophils # (Auto) 0.03 08/16/17 16:05 Test 08/16/17 16:05 White Blood Count 8.42 K/uL (4.8-10.8) Red Blood Count 3.83 M/uL (4.7-6.1) Hemoglobin 11.1 g/dL (14.0-18.0) Hematocrit 32.5 % (42-52) Mean Corpuscular Volume 84.9 fL (80-100) Mean Corpuscular Hemoglobin 29.0 pg (25-34) Mean Corpuscular Hemoglobin Concent 34.2 g/dl (32-36) Platelet Count 196 K/uL (130-400) Mean Platelet Volume 7.9 fL (7.4-10.4) Neutrophils (%) (Auto) 77.4 % Lymphocytes (%) (Auto) 9.4 % Monocytes (%) (Auto) 8.0 % Eosinophils (%) (Auto) 3.8 % Basophils (%) (Auto) 0.4 % Neutrophils # (Auto) 6.53 K/uL (1.4-6.5) Lymphocytes # (Auto) 0.79 K/uL (1.2-3.4) Monocytes # (Auto) 0.67 K/uL (0.11-0.59) Eosinophils # (Auto) 0.32 K/uL (0-0.5) Basophils # (Auto) 0.03 K/uL (0-0.2) RDW Standard Deviation 49.9 fL (36.4-46.3) RDW Coefficient of Variation 16.2 % (11.5-14.5) Immature Granulocyte % (Auto) 1.0 % Immature Granulocyte # (Auto) 0.08 K/uL (0.00-0.02) Anion Gap 8.0 mmol/L (3-11) Est Creatinine Clear Calc Drug Dose 118.0 ml/min Estimated GFR () 93.7 Estimated GFR (Non- 80.9 BUN/Creatinine Ratio 14.6 (10-20) Calcium Level 8.2 mg/dl (8.5-10.1) Medications Administered Medications (Trade) Dose Ordered Sig/Moose Route Start Time Stop Time Status Last Admin Dose Admin Ceftriaxone Sodium (Rocephin Inj) 1 gm NOW STAT IV 08/16/17 15:59 08/16/17 16:01 DC 08/16/17 16:10 1 GM ED Course The patient was evaluated. The patient's EMR medication list were reviewed. The patient had an ultrasound done when he was in the emergency room on Tuesday which were revealed a seroma which the patient had on prior CT scan. There was no change. The patient was prophylactically placed on doxycycline and Keflex since it appeared to be infection on the skin. IV access was obtained today. CBC and differential and renal profile was ordered. Patient was given Rocephin 1 g IV. Labs are reviewed. The patient's white count was normal. The patient' s blood sugar was elevated at 209. His hemoglobin and hematocrit were also low but are at baseline for the patient.. The margins were marked with a skin marker. The patient was informed of the lab findings and was discharged home in stable condition. Medical Decision Differential diagnosis includes cellulitis, abscess Since the area of erythema was slightly larger than prior ER visit labs were obtained and he was given IV antibiotics. I will also increase his Keflex to 500 mg 4 times a day. [place] Drug Monitoring Program Search Results: patient reviewed within database Medication Reconcilliation Current Medication List: was personally reviewed by me Blood Pressure Screening Patient's blood pressure: Normal blood pressure Impression Primary Impression: Cellulitis of chest wall Departure Information Dispostion Home / Self-Care Condition GOOD Prescriptions Cephalexin Monohydrate (KEFLEX) 500 Mg Cap 500 MG PO QID for 5 Days, #20 CAP Prov: Gayathri Ng PA-C 08/16/17 Referrals Nery rGace M.D. (PCP) Forms HOME CARE DOCUMENTATION FORM, IMPORTANT VISIT INFORMATION, WORK / SCHOOL INSTRUCTIONS Patient Instructions My [facility] Additional Instructions You do not need to take additional Keflex today. Increase Keflex to 500 mg 4 times a day for a total of 10 days. Continue doxycycline as prescribed. Warm compresses to the affected area several times a day. If the redness significantly goes past the dotted line and there is no central softness to the area, return to ER. If the redness increases and there is central softness or drainage, follow-up with your surgeon. Recommend follow-up with your family doctor in 2 days for recheck.
[2017-08-16 17:26] VITALS: BP 121/71; PULSE 71; O2SAT 95
[2017-08-16] MEDS ORDERED: INSU100I2 SC (17:26)
[2017-08-16] MEDS ORDERED: CYM20 PO (17:26)
[2017-08-16] MEDS ORDERED: DILT120C67 PO (21:12)
[2017-08-16] MEDS ORDERED: LSX40 PO (21:12)
[2017-08-16] MEDS ORDERED: XRL20 PO (21:12)
[2017-08-16] MEDS ORDERED: METO50TA17 PO (21:12)
[2017-08-16] MEDS ORDERED: GABA-1219 PO (21:12)
[2017-08-16] MEDS ORDERED: BUDE1SUS NEB (21:17)
== END 2017-08-16 17:27 | disposition home or self-care (01) ==
LOC: C.EDB 15:20
DX: L03.313 Cellulitis of chest wall (principal); D64.9 Anemia, unspecified; I48.0 Paroxysmal atrial fibrillation; Z85.72 Personal history of non-Hodgkin lymphomas; J44.9 Chronic obstructive pulmonary disease, unspecified; Z86.718 Personal history of other venous thrombosis and embolism; M10.9 Gout, unspecified; G47.33 Obstructive sleep apnea (adult) (pediatric); Z80.9 Family history of malignant neoplasm, unspecified; Z83.6 Family history of other diseases of the respiratory system; Z87.891 Personal history of nicotine dependence; Z79.01 Long term (current) use of anticoagulants; Z79.4 Long term (current) use of insulin; Z79.899 Other long term (current) drug therapy

== ENCOUNTER → 2017-09-05 | Outpatient (CLI) | payer BC ==
[~2017-09-05] MED LIST changes: +BUDE1SUS NEB; +CYM20 PO; +DILT120C67 PO; -DULO-24 PO; +GABA-1219 PO; -INSU100I SQ; +INSU100I2 SC; +LSX40 PO; +MAGN250T8 PO; +METO50TA17 PO; +XRL20 PO
--- NOTE | 2017-09-05 09:10 | DIAGNOSTIC IMAGING REPORT ---
L EXTREMITY NONVASCULAR LIMITED CLINICAL HISTORY: 62 years-old Male presenting with CELLULITIS,UNSPECIFIED. TECHNIQUE: Real-time grayscale and limited color Doppler ultrasound imaging of the left axilla was performed. COMPARISON: 08/14/[address] from 07/07/2017. FINDINGS: In the left axilla at the site of clinical concern, a 2.8 x 1.8 x 2.1 cm anechoic fluid collection noted. No peripheral hyperemia. Posterior acoustic enhancement. The previously noted complex of the is less apparent on the current exam. IMPRESSION: Findings consistent with interval evolution of the cystic lesion in the left axilla, which now appears largely simple and without significant surrounding inflammatory change. This could represent a cystic/necrotic lymph node in the setting of posttreatment change of lymphoma. Sterility is difficult to confirm but abscess is considered less likely. Electronically signed by: Agusto Banuelos M.D. 09/05/2017 9:09 AM Dictated Date/Time: 09/05/2017 9:05 AM
== END | disposition home or self-care (01) ==
LOC: C.ULTR 08:40
PROVIDERS: ATTEND Family Medicine
DX: L03.90 Cellulitis, unspecified (principal)

== ENCOUNTER → 2017-10-07 | Outpatient (CLI) | payer BC ==
[~2017-10-07] MED LIST changes: +OPTIRAY 320 IV PRN
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
--- NOTE | 2017-10-07 14:33 | DIAGNOSTIC IMAGING REPORT ---
CT OF THE CHEST WITH IV CONTRAST CLINICAL HISTORY: Lymphoma. COMPARISON STUDY: Chest CT July 07, 2017 and PET/CT May 09, 2017. TECHNIQUE: Following IV administration of 92 mL of Optiray-320, helical axial images of the chest were obtained. Sagittal and coronal reconstructions were viewed as well as maximal intensity projections on an independent 3-D workstation. A dose lowering technique was utilized adhering to the principles of ALARA. CT DOSE: 2396.12 mGycm FINDINGS: No enlarged axillary, mediastinal or hilar lymph nodes are present. There is moderate cardiomegaly and extensive coronary artery calcification. There is trace pericardial fluid. There is mild right pleural thickening. Subpleural right lower lobe opacity is unchanged and reflects round atelectasis. Multiple metallic densities suggestive of BB's are unchanged. The presumed the left axillary seroma shown on prior exam is not visualized. A 1.6 cm irregular subpleural nodule within the superior segment of the left lower lobe has increased in size since exam of July 07, 2017 when it measured 1.2 cm. A calcified granuloma within the right upper lobe is noted. There are no additional suspicious pulmonary nodules. No suspicious osseous lesions are present. The abdomen and pelvis will be reported separately. IMPRESSION: 1. Increase in size of a 1.6 cm irregular subpleural nodule within the superior segment of the left lower lobe. This is highly suggestive of a neoplastic process. A primary lung malignancy is favored although pulmonary lymphoma could appear similar. 2. No thoracic lymphadenopathy. 3. Moderate cardiomegaly and extensive coronary artery calcification. Electronically signed by: Ponce Gupta M.D. 10/07/2017 2:32 PM Dictated Date/Time: 10/07/2017 2:19 PM
== END | disposition home or self-care (01) ==
LOC: C.CTS 13:34
PROVIDERS: ATTEND Nurse Practitioner Family
DX: C83.30 Diffuse large B-cell lymphoma, unspecified site (principal); K57.92 Diverticulitis of intestine, part unspecified, without perforation or abscess without bleeding; R91.8 Other nonspecific abnormal finding of lung field; I51.7 Cardiomegaly

== ENCOUNTER → 2017-10-24 | Outpatient (CLI) | payer BC ==
[~2017-10-24] MED LIST changes: +BUDE180I INH; +ONDA-170 PO; -OPTIRAY 320 IV PRN; +TPRSR/50 PO
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
== END | disposition home or self-care (01) ==
LOC: C.PET 10:54
PROVIDERS: ATTEND Internal Medicine Hematology & Oncology
DX: C83.30 Diffuse large B-cell lymphoma, unspecified site (principal); R91.1 Solitary pulmonary nodule

== ENCOUNTER 2017-11-04 10:12 | Inpatient (IN) | payer BC, OTHER ==
[2017-10-27 15:23] VITALS: BMI 47.0
[~2017-11-04] VITALS: Ht 180.3 cm; Wt 154.6 kg
[2017-11-04] VITALS (8 sets, daily range): BP systolic 116–146; BP diastolic 64–75; PULSE 55–85; TEMP 36.6–37.2; O2SAT 90–95; Ht 180.3 cm; Wt 154.6 kg
[~2017-11-04 10:12] MED LIST changes: -BUDE1SUS NEB; -DOXY100C76 PO; +LACTATED RINGER'S 1000ML 1,000 ML IV SCH; -METO50TA17 PO
[2017-11-04] MEDS ORDERED: NEOSTIGMINE METHYLSULFATE 5 MG/5 ML SYR ONE (12:36)
[2017-11-04] MEDS ORDERED: GLYCOPYRROLATE INJ 0.2 MG/ML VIAL ONE (12:36)
[2017-11-04] MEDS ORDERED: ONDANSETRON INJ 2 MG/ML 2 ML VIAL ONE (12:36)
[2017-11-04] MEDS ORDERED: PROPOFOL IV EMULSION 10 MG/ML 20 ML VIAL ONE (12:36)
[2017-11-04] MEDS ORDERED: SUCCINYLCHOLINE CHLORIDE 20 MG/ML 10 ML VIAL IV ONE (12:36)
[2017-11-04] MEDS ORDERED: ROCURONIUM BROMIDE 10 MG/ML 5 ML VIAL ONE (12:36)
[2017-11-04] MEDS ORDERED: LIDOCAINE HCL 2% 2 ML VIAL (20MG/ML) ONE (12:36)
[2017-11-04] MEDS ORDERED: DEXAMETHASONE SOD INJ 4 MG/ML VIAL ONE (12:36)
[2017-11-04] MEDS ORDERED: FENTANYL CITRATE INJ 50 MCG/1 ML 2 ML VIAL ONE ×2 (12:37)
[2017-11-04] MEDS ORDERED: EpHEDrine SULFATE INJ 50 MG/ML AMP IV PRN (13:00)
[2017-11-04] MEDS ORDERED: ONDANSETRON INJ 2 MG/ML 2 ML VIAL IV PRN ×2 (13:00→15:45)
[2017-11-04] MEDS ORDERED: FENTANYL CITRATE INJ 50 MCG/1 ML 2 ML VIAL IV PRN (13:00)
[2017-11-04] MEDS ORDERED: ATROPINE SULFATE 0.1 MG/ML 5ML SYR IV PRN (13:00)
[2017-11-04] MEDS ORDERED: SODIUM CHLORIDE 0.9% PF 50 ML VIAL ONE ×2 (13:24)
[2017-11-04] MEDS ORDERED: BUPIVACAINE 0.5 % 5 MG/1 ML MPF 30ML VIAL ONE (13:24)
[2017-11-04] MEDS ORDERED: BUPIVACAINE LIPOSOME 1/3% 266 MG/20 ML VIAL ONE (13:24)
[2017-11-04] MEDS ORDERED: CLINDAMYCIN PHOS 150 MG/ML 2 ML VIAL ONE ×2 (14:01→14:17)
--- NOTE | 2017-11-04 15:32 | [facility] Post Operative Brief Note ---
Immediate Operative Summary Operative Date November 04, 2017. Pre-Operative Diagnosis Left lung mass Post-Operative Diagnosis Squamous Cell Carcinoma Procedure(s) Performed Left Video Assisted Thoracoscopy with Extensive Lysis of Adhesions, Left Lower Lobe Wedge Resection Surgeon Dr Madera Parachute Repairer Surgeon(s) Moreno Harris PA-C Estimated Blood Loss 50ml Findings Consistent with Post-Op Diagnosis Specimens Frozen: 1.) Left Lower Lobe Mass Anesthesia Type General
[2017-11-04] MEDS ORDERED: BUDESONIDE 90 MCG INH INH PRN (15:45)
[2017-11-04] MEDS ORDERED: ALBUT/IPRATROP 3MG/0.5MG NEB 3 ML VIAL INH PRN (15:45)
[2017-11-04] MEDS ORDERED: OXYCODONE HCL IR 5 MG TAB (IMMEDIATE RELEASE) PO PRN (15:45)
[2017-11-04] MEDS ORDERED: [UNRECOGNIZED DRUG - OTHER] SCH (15:45)
[2017-11-04] MEDS ORDERED: MoRPHine SULFATE 2 MG/ML CARP IV PRN (15:45)
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
[2017-11-04] MEDS ORDERED: METOCLOPRAMIDE HCL INJ 5 MG/ML 2 ML VIAL ONE (16:27)
--- NOTE | 2017-11-04 16:45 | Anesthesiology Progress Note ---
Anesthesia Post Op Note Date & Time November 04, 2017 at 16:45 Vital Signs Pain Intensity: 0 Vital Signs Past 12 Hours Date Time Temp Pulse Resp B/P (MAP) Pulse Ox O2 Delivery O2 Flow Rate FiO2 11/04/17 16:40 64 12 111/73 93 Nasal Cannula 4 11/04/17 16:30 36.4 60 15 122/65 92 Nasal Cannula 4 11/04/17 16:20 61 16 99/64 (76) 92 Oxymask 4 11/04/17 16:10 58 15 140/85 93 Oxymask 10 11/04/17 16:00 61 14 144/80 94 Oxymask 10 11/04/17 15:53 37.1 61 17 143/79 94 Oxymask 10 11/04/17 10:34 36.7 59 22 116/67 (83) 95 Nasal Cannula 3 Notes Mental Status: alert / awake / arousable, participated in evaluation Pt Amnestic to Procedure: Yes Nausea / Vomiting: adequately controlled Pain: adequately controlled Airway Patency, RR, SpO2: stable & adequate BP & HR: stable & adequate Hydration State: stable & adequate Anesthetic Complications: no major complications apparent
[2017-11-04] MEDS ORDERED: METOCLOPRAMIDE HCL INJ 5 MG/ML 2 ML VIAL IV. STA (17:24)
[2017-11-04] MEDS ORDERED: GLUCAGON FOR INJ 1 MG VIAL IM PRN (17:30)
[2017-11-04] MEDS ORDERED: DEXTROSE 50% 50 ML SYR IV PRN (17:30)
[2017-11-04] MEDS ORDERED: GLUCOSE 40% GEL 15 GM TUBE PO PRN (17:30)
[2017-11-04] MEDS ORDERED: GLUCOSE 10 TABS/TUBE PO PRN (17:30)
[2017-11-04] MEDS ORDERED: CARBOHYDRATES FOR HYPOGLYCEMIA PO PRN (17:30)
--- NOTE | 2017-11-04 18:08 | OPERATIVE REPORT ---
DATE OF OPERATION: 11/04/2017 PREOPERATIVE DIAGNOSES: 1. History of lymphoma. 2. Small enlarging mass, left lower lobe. 3. Obesity. 4. Chronic obstructive pulmonary disease. 5. Hypercapnia. POSTOPERATIVE DIAGNOSES: 1. Squamous cell carcinoma of the left lower lobe. 2. History of lymphoma. 3. Small enlarging mass, left lower lobe. 4. Obesity. 5. Chronic obstructive pulmonary disease. 6. Hypercapnia. PROCEDURE: 1. Left thoracoscopy with extensive lysis of adhesions. 2. Wedge resection of left lower lobe mass. SURGEON: Enio Madera MD SOFT HAT BINDER: TENZIN Kaplan (Mr. Harris was present for the entire case and managed the camera and first assisted and then we have to close the skin incisions with Monocryl at the conclusion). DESCRIPTION OF PROCEDURE: The patient brought to the operating room and laid in supine position. General anesthesia was induced. Endotracheal intubation was performed. The patient was then turned in the right lateral decubitus position. His left chest was prepped and draped in usual sterile fashion. I made a 5 mm incision below the tip of the scapula a bit more posterior; however, I could not get CO2 to insufflate. I then tried this at the fourth interspace and again I could not get carbon dioxide to insufflate. For this reason, I made a bigger incision about 2 cm about the eighth interspace anteriorly just above the costal margin. I sharply and bluntly dissected this free and put my finger in between here and I could feel there were marked adhesions. I was unable to get a scope and beside the scope I used a Kitner with a cotton tip and I started freeing up these rather flimsy adhesions. I was insufflating CO2 at that time and made it easier. Finally, I freed up enough to the 4th interspace and was able to put the 5 mm port as I originally planned. With these, I was able to take down the adhesions even better. Some of these were done bluntly and then I used a Harmonic scalpel to take down many of them until we got posterior and then I was able to place another 5 mm port. We then meticulously took down adhesions and took him off of the diaphragm. I had to separate some of the lobe. I did not take down the most apical adhesions as they were quite densely adherent. Using the harmonic scalpel, I freed up everything else and then freed up much of the fissure, so I could free the superior portion up. The mass was easily palpable. It should be noted that his resting pCO2 is 47 and I did not feel he would be a candidate for resection as he was already oxygen dependent. I fired an Endo-TRINITY stapler several times and I was able to remove this mass in an Endobag. Frozen section came back as a squamous cell carcinoma. He was really stuck in with adhesions. We did use Exparel 266 mg mixed with 30 mL of 0.5% bupivacaine and 150 mL of normal saline and did a block from the 2nd to the 4th rib as well as inject all the incisions. A 24-Croatian chest tube was then directed towards the apex from the anterior most thoracoscopy port and sutured in place with heavy silk suture. A 4-0 Monocryl was used to close the incisions He tolerated the procedure quite well. I attest to the content of the Intraoperative Record and any orders documented therein. Any exceptions are noted below. DEBID
[2017-11-04] MEDS: INSULIN ASPART 100 UNITS/ML 3 ML PEN SC SCH ×2 (18:16→21:50)
[2017-11-04] MEDS ORDERED: GABAPENTIN 300 MG CAP PO SCH (21:00)
[2017-11-04] MEDS ORDERED: INSULIN GLARGINE SOLOSTAR 100 UNITS/ML 3 ML PEN SC SCH (21:00)
[2017-11-04] MEDS: DOCUSATE SODIUM 100 MG CAP PO SCH (21:53)
[2017-11-04] MEDS: MAGNESIUM OXIDE 400 MG TAB PO SCH (21:53)
[2017-11-04] MEDS: METOPROLOL SUCC 50MG EXT REL TAB PO SCH (21:53)
[2017-11-04] MEDS: METOCLOPRAMIDE HCL INJ 5 MG/ML 2 ML VIAL IV. SCH (21:54)
[2017-11-04] MEDS: ERYTHROMYCIN OP OINT 5 MG/GM 3.5 GM TUBE OPL SCH (21:54)
[2017-11-04] MEDS: SODIUM CHLORIDE 0.9% 1000ML 1,000 ML IV SCH (22:09)
[2017-11-05 01:00] VITALS: BP 115/78; PULSE 62; TEMP 37; O2SAT 96
[2017-11-05 03:00] VITALS: BP 129/83; PULSE 68; TEMP 37; O2SAT 96
[2017-11-05 05:00] VITALS: BP 130/78; PULSE 77; TEMP 36.8; O2SAT 94
[2017-11-05] MEDS: METOCLOPRAMIDE HCL INJ 5 MG/ML 2 ML VIAL IV. SCH (05:18)
[2017-11-05] MEDS: SODIUM CHLORIDE 0.9% 1000ML 1,000 ML IV SCH (05:24)
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
[2017-11-05 07:32] VITALS: BP 141/70; PULSE 65; TEMP 36.8; O2SAT 95
[2017-11-05] MEDS: ERYTHROMYCIN OP OINT 5 MG/GM 3.5 GM TUBE OPL SCH (08:59)
[2017-11-05] MEDS: METOPROLOL SUCC 50MG EXT REL TAB PO SCH (09:00)
[2017-11-05] MEDS ORDERED: DILTIAZEM HCL 120 MG EXT REL CAP PO SCH (09:00)
[2017-11-05] MEDS ORDERED: INSULIN GLARGINE SOLOSTAR 100 UNITS/ML 3 ML PEN SC SCH (09:00)
[2017-11-05] MEDS ORDERED: DULOXETINE HCL 20 MG CAP PO SCH (09:00)
[2017-11-05] MEDS: DOCUSATE SODIUM 100 MG CAP PO SCH (09:00)
[2017-11-05] MEDS: MAGNESIUM OXIDE 400 MG TAB PO SCH (09:01)
[2017-11-05] MEDS: INSULIN ASPART 100 UNITS/ML 3 ML PEN SC SCH (09:08)
[2017-11-05] MEDS ORDERED: RXC5 PO ×2 (09:50→09:54)
[2017-11-05 09:53] VITALS: BP 141/70; PULSE 65; TEMP 36.8; O2SAT 95
--- NOTE | 2017-11-05 09:58 | Discharge Instructions ---
Discharge Instructions Date of Service November 05, 2017. Admission Reason for Admission: Left Lung Mass, Diabetes Discharge Discharge Diagnosis / Problem: Primary lung carcinoma Left lower lobe Discharge Goals Goal(s): Learn about illness (Return next week to review final pathology) Activity Recommendations Activity Limitations: as noted below Lifting Limitations: gradually increase as tolerated Exercise/Sports Limitations: gradually increase as tolerated May Resume Sexual Activity: when tolerated Shower/Bathe: may shower/bathe in 3 days Driving or Machine Use: resume 3 days after discharge . Instructions / Follow-Up Instructions / Follow-Up Remove all dressings and shower on Tuesday, 2017. Walk!!! Use the oxycodone only as needed. Current Hospital Diet Patient's current hospital diet: Diabetes Type 2 Diet Discharge Diet Recommended Diet: Diabetes Type 2 Diet Procedures Procedures Performed: Left Video Assisted Thoracoscopy with Extensive Lysis of Adhesions, Left Lower Lobe Wedge Resection Pending Studies Studies pending at discharge: yes List of pending studies: Final pathology Medical Emergencies . Who to Call and When: Medical Emergencies: If at any time you feel your situation is an emergency, please call 911 immediately. . Non-Emergent Contact Non-Emergency issues call your: Surgeon ([phone] Madera for any issues.) . "Provider Documentation" section prepared by Enio Madera. .
--- NOTE | 2017-11-05 10:12 | DIAGNOSTIC IMAGING REPORT ---
CHEST ONE VIEW PORTABLE CLINICAL HISTORY: 62 years-old Male presenting with chest tube removal. TECHNIQUE: Portable upright AP view of the chest was obtained. COMPARISON: 11/05/2017 at 6:51 AM. FINDINGS: The large bore left pleural drain has been removed. Right subclavian Mediport remains in place. Atherosclerosis of aortic arch. Cardiac silhouette moderately enlarged. Pulmonary vascular prominence. Central and bibasilar hazy opacities similar to prior. Trace bilateral pleural effusions suggested. No pneumothorax. Osseous structures normal. Upper abdomen normal. IMPRESSION: 1. No pneumothorax status post removal of the large bore left pleural drain. 2. Cardiomegaly with congestive change similar to prior. Electronically signed by: Agusto Banuelos M.D. 11/05/2017 10:11 AM Dictated Date/Time: 11/05/2017 10:09 AM
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
== END 2017-11-05 11:33 | disposition home or self-care (01) | DRG 167 ==
LOC: C.ACU 10:12 → C.MSN 15:43 → ENRESERV 16:36
PROVIDERS: ADMIT Surgery; ATTEND Surgery
PROC: 0BBJ4ZX Excision of Left Lower Lung Lobe, Percutaneous Endoscopic Approach, Diagnostic (ICD-10-PCS; principal; 2017-11-04 12:10)
DX: C34.32 Malignant neoplasm of lower lobe, left bronchus or lung (principal); I48.92 Unspecified atrial flutter; C85.10 Unspecified B-cell lymphoma, unspecified site; F41.9 Anxiety disorder, unspecified; J44.9 Chronic obstructive pulmonary disease, unspecified; E11.9 Type 2 diabetes mellitus without complications; Z86.718 Personal history of other venous thrombosis and embolism; R59.1 Generalized enlarged lymph nodes; G47.30 Sleep apnea, unspecified; K42.9 Umbilical hernia without obstruction or gangrene; G57.60 Lesion of plantar nerve, unspecified lower limb; R00.0 Tachycardia, unspecified; Z80.9 Family history of malignant neoplasm, unspecified; F17.200 Nicotine dependence, unspecified, uncomplicated; Z87.891 Personal history of nicotine dependence; Z79.4 Long term (current) use of insulin; Z79.01 Long term (current) use of anticoagulants; Z88.6 Allergy status to analgesic agent; Z88.0 Allergy status to penicillin; E66.9 Obesity, unspecified; R06.89 Other abnormalities of breathing

== ENCOUNTER → 2017-11-14 | Outpatient (CLI) | payer BC ==
[~2017-11-14] MED LIST changes: -LACTATED RINGER'S 1000ML 1,000 ML IV SCH; +RXC5 PO
[2017-11-14 16:15] LABS: BASO % 0.5 %; BASO ABS # 0.04 K/uL (0-0.2); EOS % 7.7 %; EOS ABS # 0.58 K/uL (0-0.5); HEMATOCRIT 35.3 % (42-52); HEMOGLOBIN 11.9 g/dL (14.0-18.0); IG# 0.07 K/uL (0.00-0.02); LYMPH % 14.1 %; LYMPH ABS # 1.06 K/uL (1.2-3.4); MEAN CELL VOLUME 85.9 fL (80-100); MEAN CORPUSCULAR HGB CONC 33.7 g/dl (32-36); MEAN PLATELET VOLUME 8.1 fL (7.4-10.4); MONO % 7.8 %; MONO ABS # 0.59 K/uL (0.11-0.59); NEUT ABS # 5.19 K/uL (1.4-6.5); PLATELET COUNT 239 K/uL (130-400); RED CELL DISTRIBUTION WIDTH CV 17.4 % (11.5-14.5); RED CELL DISTRIBUTION WIDTH SD 54.3 fL (36.4-46.3); WHITE BLOOD COUNT 7.53 K/uL (4.8-10.8)
[2017-11-14 16:39] LABS: ALBUMIN 3.2 gm/dl (3.4-5.0); ALT/SGPT 36 U/L (12-78); AST/SGOT 24 U/L (15-37); BLOOD UREA NITROGEN 16 mg/dl (7-18); CALCIUM 8.6 mg/dl (8.5-10.1); CARBON DIOXIDE 33 mmol/L (21-32); CREATININE 0.97 mg/dl (0.60-1.40); GLUCOSE 210 mg/dl (70-99); POTASSIUM 3.8 mmol/L (3.5-5.1); SODIUM 138 mmol/L (136-145)
[2017-11-14 16:41] LABS: ALKALINE PHOSPHATASE 88 U/L (45-117); TOTAL PROTEIN 6.9 gm/dl (6.4-8.2)
== END | disposition home or self-care (01) ==
LOC: C.LABSPEC 15:35
PROVIDERS: ATTEND Internal Medicine Hematology & Oncology
DX: C83.30 Diffuse large B-cell lymphoma, unspecified site (principal)

== ENCOUNTER → 2017-11-15 | Outpatient (CLI) | payer BC ==
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
== END | disposition home or self-care (01) ==
LOC: C.RAD1850 08:45
PROVIDERS: ATTEND Surgery
DX: I51.7 Cardiomegaly (principal); J90 Pleural effusion, not elsewhere classified; R59.1 Generalized enlarged lymph nodes

== ENCOUNTER → 2018-01-24 | Day surgery (SDC) | payer BC ==
[2018-01-18 14:56] VITALS: BMI 48.0
[~2018-01-24] VITALS: Ht 180.3 cm; Wt 156.4 kg
[~2018-01-24] MED LIST changes: +ALBUT/IPRATROP 3MG/0.5MG NEB 3 ML VIAL INH SCH; +ATROPINE SULFATE 0.1 MG/ML 5ML SYR IV PRN; -BUDE180I INH; +CEFAZOLIN 2000MG IV PUSH 15 ML IV SCH; +CLINDAMYCIN PHOS 150 MG/ML 2 ML VIAL ONE; +DEXAMETHASONE SOD INJ 4 MG/ML VIAL ONE; +EpHEDrine SULFATE INJ 50 MG/ML AMP IV PRN; +FENTANYL CITRATE INJ 50 MCG/1 ML 2 ML VIAL IV PRN; +FENTANYL CITRATE INJ 50 MCG/1 ML 2 ML VIAL ONE; +FLUMAZENIL 0.1 MG/1 ML 10 ML VIAL IV PRN; +GLYCOPYRROLATE INJ 0.2 MG/ML VIAL ONE; +HYDROmorphone INJ 2 MG/ML SYR/VIAL IV PRN; +IPRA-64 INH; -IPRASOL4 INH; +LABETALOL HCL IV 5 MG/ML 20ML IV PRN; +LACTATED RINGER'S 1000ML 1,000 ML IV SCH; +LACTATED RINGER'S 1000ML 500 ML IV SCH; +LIDOCAINE HCL 2% 2 ML VIAL (20MG/ML) ONE; +MEPERIDINE HCL 25 MG/ML CARP IV PRN; +MIDAZOLAM HCL 1 MG/ML 2ML VIAL ONE; +NALOXONE HCL 0.4 MG/1 ML VIAL/CARP IV PRN; +NEOSTIGMINE METHYLSULFATE 5 MG/5 ML SYR ONE; +ONDANSETRON INJ 2 MG/ML 2 ML VIAL IV PRN; +ONDANSETRON INJ 2 MG/ML 2 ML VIAL ONE; +PHENYLEPHRINE 100MCG/ML 5ML SYR IV PRN; +PROPOFOL IV EMULSION 10 MG/ML 20 ML VIAL ONE; +ROCURONIUM BROMIDE 10 MG/ML 5 ML VIAL ONE; -RXC5 PO
[2018-01-24 07:25] VITALS: BP 116/73; PULSE 75; TEMP 36.9; O2SAT 94; Ht 180.3 cm; Wt 156.4 kg
--- NOTE | 2018-01-24 07:42 | Discharge Instructions ---
Discharge Instructions Date of Service Jan 24, 2018. Visit Reason for Visit: Mediastinal Adenopathy, Diabetes Discharge Discharge Diagnosis / Problem: Mediastinal Adenopathy Discharge Goals Goal(s): Learn about illness Activity Recommendations Activity Limitations: resume your previous activity (in 24 hours) Anesthesia . Post Anesthesia Instructions: If you have had General Anesthesia or IV Sedation: * Do not drive today. * Resume driving when surgeon permits. * Do not make important decisions or sign legal documents today. * Call surgeon for: 1. Temperature elevations greater than 101 degrees F. 2. Uncontrollable pain. 3. Excessive bleeding. 4. Persistent nausea and vomiting. 5. Medication intolerance (nausea, vomiting or rash). * For nausea and vomiting use only clear liquids such as: tea, soda, bouillon until nausea subsides, then gradually increase diet as tolerated. * If you have any concerns or questions, call your surgeon's office. If physician is unavailable and it is an emergency, call 911 or go to the nearest emergency room. . Instructions / Follow-Up Instructions / Follow-Up 1. You may cough up some blood. Call physician if excessive amount noted. 2. Keep your scheduled appointment with Dr. Madera on February 06, 2018 @ 9:45 am. Diet Recommendations Recommended Home Diet: resume previous diet Pending Studies Studies pending at discharge: no Medical Emergencies . Who to Call and When: Medical Emergencies: If at any time you feel your situation is an emergency, please call 911 immediately. . Non-Emergent Contact Non-Emergency issues call your: Surgeon Call Non-Emergent contact if: you have a fever . . "Provider Documentation" section prepared by Jono Harris. .
--- NOTE | 2018-01-24 09:34 | [facility] Post Operative Brief Note ---
Immediate Operative Summary Operative Date Jan 24, 2018. Pre-Operative Diagnosis Left lower lobe abnormality Post-Operative Diagnosis Same Procedure(s) Performed Endobronchial Ultrasound with Biopsies Surgeon Dr Madera Color Card Maker Surgeon(s) None Estimated Blood Loss 5ml Findings Consistent with Post-Op Diagnosis Specimens All labs handled by lab and respiratory Anesthesia Type General
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
--- NOTE | 2018-01-24 10:30 | Anesthesiology Progress Note ---
Anesthesia Post Op Note Date & Time Jan 24, 2018 at 10:30 Vital Signs Pain Intensity: 0 Vital Signs Past 12 Hours Date Time Temp Pulse Resp B/P (MAP) Pulse Ox O2 Delivery O2 Flow Rate FiO2 01/24/18 10:25 36.6 66 16 113/64 93 Nasal Cannula 4 01/24/18 10:15 72 16 112/60 92 Nasal Cannula 4 01/24/18 10:05 69 16 139/74 92 Oxymask 15 01/24/18 09:55 72 16 154/79 93 Oxymask 15 01/24/18 09:45 36.8 81 16 150/87 95 Oxymask 15 01/24/18 07:25 36.9 75 22 116/73 (87) 94 Nasal Cannula 3 Notes Mental Status: alert / awake / arousable, participated in evaluation Pt Amnestic to Procedure: Yes Nausea / Vomiting: adequately controlled Pain: adequately controlled Airway Patency, RR, SpO2: stable & adequate BP & HR: stable & adequate Hydration State: stable & adequate Anesthetic Complications: no major complications apparent The patient is awake and stable at his baseline.
[2018-01-24 10:37] VITALS: BP 110/57; PULSE 67; TEMP 37.1; O2SAT 93
[2018-01-24 11:05] VITALS: BP 127/70; PULSE 79; TEMP 37.1; O2SAT 94
--- NOTE | 2018-01-27 19:00 | OPERATIVE REPORT ---
DATE OF OPERATION: 01/24/2018 PREOPERATIVE DIAGNOSES: 1. Mediastinal adenopathy. 2. Status post wedge resection for non-small cell lung carcinoma, left lower lobe. 3. Severe chronic obstructive pulmonary disease. POSTOPERATIVE DIAGNOSES: 1. Mediastinal adenopathy. 2. Status post wedge resection for non-small cell lung carcinoma, left lower lobe. 3. Severe chronic obstructive pulmonary disease. PROCEDURE: Endobronchial ultrasound with biopsy. SURGEON: Enio Madera MD INTERSTATE BUS DISPATCHER: Sreekanth Mccormick, respiratory therapy: ANESTHESIA: General anesthesia endotracheal intubation. INDICATION FOR PROCEDURE AND FINDINGS: Sreekanth Gacría is a 62-year-old obese male with oxygen dependent chronic obstructive pulmonary disease who was found to have a mass in his left lower lobe. I wedged this out. It turns out this was a non-small cell lung carcinoma. While the margins were close, they were free of tumor. 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 The patient presented back and he had some changes in his left lower lobe; however, it does not appear to me that he has a malignancy. I was concerned, however, about a level 10 lymph node. This on the left had gotten definitely larger. The patient does have a history of lymphoma. I felt that biopsying this lymph node would be very important. On 01/24/2018, the patient underwent uncomplicated endobronchial ultrasound with biopsy. Also, did bronchial washings of left lower lobe. I biopsied a level-7 lymph node, a left level-10 lymph node which was the one I was most concerned about, and also did a left level-4 lymph node; however, it was very small. The patient tolerated it well. DESCRIPTION OF PROCEDURE: On 01/24/2018, the patient was brought to the operating room and underwent endotracheal intubation with a #8 endotracheal tube. Appropriate timeout had been called and the patient was given prophylactic antibiotics, and an endobronchial ultrasound scope was placed. I felt no endobronchial lesions after closely inspecting all the way down to the tertiary bronchials. I did this bilaterally. Coming back I then turned on the ultrasound, I could see that this left level-10 node was fairly large and it was noted to be not too difficult to biopsy. I did multiple biopsies of this level-10 lymph node. This was on the left side. I was able to see it well, and I measured it to be just under 2 cm. Under ultrasound guidance, I biopsied this multiple times to get 3 separate samples which were all "adequate." No malignancy was seen. I also biopsied the level 4R and although we did get lymphocytes and histiocytes with anthracotic pigment consistent with aspiration of the lymph node, I still did not see evidence of malignancy. Finally, I biopsied the level-7 lymph node. Again, it was difficult to get an adequate biopsy because of the small size, but with small amount of lymph tissue we got, revealed no evidence of malignancy. I then did a lavage and washings of the left lower lobe. Then suctioned all of this dried. He tolerated it well. ____ the patient was brought to the operating room and laid in supine position. General anesthesia induced and endotracheal intubation was performed. Endobronchial ultrasound scope was then placed. Immediately, ____ to the #10 lymph node on the left, I biopsied this multiple times and got adequate biopsies. Level-7 node was very small and I biopsied this from the left side and then did the level-4 node on the right. Again, this is very small. Although our biopsy specimens from the level 7 and right level 4 were scant, we did get some lymphatic tissue. I then irrigated out the airways and really we had no significant bleeding. I went down to the left lower lobe bronchus and irrigated this out and collected the lavage for cytology. We irrigated this free and really we had no bleeding and really not much in the way of sputum. I then slowly removed the endobronchial ultrasound scope. He tolerated it well. Transported back to the postanesthesia care unit in stable condition. I attest to the content of the Intraoperative Record and any orders documented therein. Any exception s are noted below.
== END | disposition home or self-care (01) ==
LOC: C.ACU 06:45
PROVIDERS: ATTEND Surgery
DX: R59.0 Localized enlarged lymph nodes (principal); R91.8 Other nonspecific abnormal finding of lung field; J44.9 Chronic obstructive pulmonary disease, unspecified; G47.33 Obstructive sleep apnea (adult) (pediatric); I48.92 Unspecified atrial flutter; F41.9 Anxiety disorder, unspecified; E11.9 Type 2 diabetes mellitus without complications; Z86.718 Personal history of other venous thrombosis and embolism; I48.91 Unspecified atrial fibrillation; Z87.891 Personal history of nicotine dependence; Z85.118 Personal history of other malignant neoplasm of bronchus and lung; Z79.4 Long term (current) use of insulin; Z79.899 Other long term (current) drug therapy; Z79.01 Long term (current) use of anticoagulants; Z88.0 Allergy status to penicillin; Z88.6 Allergy status to analgesic agent; E66.9 Obesity, unspecified; Z99.81 Dependence on supplemental oxygen; Z68.42 Body mass index [BMI] 45.0-49.9, adult

== ENCOUNTER → 2018-02-08 | Outpatient (CLI) | payer BC ==
[~2018-02-08] MED LIST changes: -ALBUT/IPRATROP 3MG/0.5MG NEB 3 ML VIAL INH SCH; -ATROPINE SULFATE 0.1 MG/ML 5ML SYR IV PRN; -CEFAZOLIN 2000MG IV PUSH 15 ML IV SCH; -CLINDAMYCIN PHOS 150 MG/ML 2 ML VIAL ONE; -DEXAMETHASONE SOD INJ 4 MG/ML VIAL ONE; -EpHEDrine SULFATE INJ 50 MG/ML AMP IV PRN; -FENTANYL CITRATE INJ 50 MCG/1 ML 2 ML VIAL IV PRN; -FENTANYL CITRATE INJ 50 MCG/1 ML 2 ML VIAL ONE; -FLUMAZENIL 0.1 MG/1 ML 10 ML VIAL IV PRN; -GLYCOPYRROLATE INJ 0.2 MG/ML VIAL ONE; -HYDROmorphone INJ 2 MG/ML SYR/VIAL IV PRN; -LABETALOL HCL IV 5 MG/ML 20ML IV PRN; -LACTATED RINGER'S 1000ML 1,000 ML IV SCH; -LACTATED RINGER'S 1000ML 500 ML IV SCH; -LIDOCAINE HCL 2% 2 ML VIAL (20MG/ML) ONE; -MEPERIDINE HCL 25 MG/ML CARP IV PRN; -MIDAZOLAM HCL 1 MG/ML 2ML VIAL ONE; -NALOXONE HCL 0.4 MG/1 ML VIAL/CARP IV PRN; -NEOSTIGMINE METHYLSULFATE 5 MG/5 ML SYR ONE; -ONDANSETRON INJ 2 MG/ML 2 ML VIAL IV PRN; -ONDANSETRON INJ 2 MG/ML 2 ML VIAL ONE; -PHENYLEPHRINE 100MCG/ML 5ML SYR IV PRN; -PROPOFOL IV EMULSION 10 MG/ML 20 ML VIAL ONE; -ROCURONIUM BROMIDE 10 MG/ML 5 ML VIAL ONE
[2018-02-08 11:12] LABS: BASO % 0.6 %; BASO ABS # 0.04 K/uL (0-0.2); EOS % 7.2 %; EOS ABS # 0.51 K/uL (0-0.5); HEMATOCRIT 36.8 % (42-52); HEMOGLOBIN 12.2 g/dL (14.0-18.0); IG# 0.09 K/uL (0.00-0.02); LYMPH % 14.1 %; MEAN CELL VOLUME 85.4 fL (80-100); MEAN CORPUSCULAR HEMOGLOBIN 28.3 pg (25-34); MEAN CORPUSCULAR HGB CONC 33.2 g/dl (32-36); MEAN PLATELET VOLUME 8.2 fL (7.4-10.4); MONO % 7.7 %; MONO ABS # 0.55 K/uL (0.11-0.59); NEUT % 69.1 %; NEUT ABS # 4.92 K/uL (1.4-6.5); PLATELET COUNT 279 K/uL (130-400); RED CELL DISTRIBUTION WIDTH CV 17.2 % (11.5-14.5); RED CELL DISTRIBUTION WIDTH SD 53.9 fL (36.4-46.3); WHITE BLOOD COUNT 7.11 K/uL (4.8-10.8)
[2018-02-08 11:34] LABS: ALBUMIN 3.3 gm/dl (3.4-5.0); ALKALINE PHOSPHATASE 84 U/L (45-117); ALT/SGPT 35 U/L (12-78); AST/SGOT 23 U/L (15-37); BLOOD UREA NITROGEN 16 mg/dl (7-18); CALCIUM 8.6 mg/dl (8.5-10.1); CARBON DIOXIDE 30 mmol/L (21-32); CREATININE 0.99 mg/dl (0.60-1.40); GLUCOSE 254 mg/dl (70-99); SODIUM 136 mmol/L (136-145); TOTAL PROTEIN 6.8 gm/dl (6.4-8.2)
== END | disposition home or self-care (01) ==
LOC: C.LABSPEC 10:58
PROVIDERS: ATTEND Nurse Practitioner Family
DX: C83.30 Diffuse large B-cell lymphoma, unspecified site (principal)

== ENCOUNTER → 2018-02-22 | Outpatient (CLI) | payer BC ==
--- NOTE | 2018-02-22 11:17 | DIAGNOSTIC IMAGING REPORT ---
PET/CT SKULL-THIGH CLINICAL HISTORY: 62 years-old Male with LYMPHOMA. Followup study in a patient with large B-cell lymphoma. Subsequent treatment strategy. Last chemotherapy treatment was conducted 04/18/2017. COMPARISON: CT chest, abdomen and pelvis 01/13/2018, PET/CT 10/24/2017. TECHNIQUE: The patient was injected with 13.7 mCi of F-18 fluorodeoxyglucose (FDG) and an emission scan was performed from the skull vertex to the toes. Noncontrast CT was performed for attenuation correction and anatomic localization. The blood glucose level was 192 mg/dl. FINDINGS: HEAD AND NECK: There is a physiologic distribution of activity, with no hypermetabolic foci. CHEST: Mediastinal adenopathy with a 2.3 x 1.7 cm right paratracheal lymph node on image 77 series 2, previously 1.6 x 1.0 cm on study dated 01/13/2018 which is hypermetabolic, SUV max of 6.4. Lower left paratracheal lymph node on image 82 series 2 measures 1.9 x 2.1 cm, previously 2.1 x 1.9 cm and is also hypermetabolic, SUV max of 13.0. There is a 12 x 11 mm solid nodule about the left lower lobe adjacent to the suture line which is mildly hypermetabolic, SUV max of 3.7 on the nonattenuation correction images and SUV max of 4.8 on the attenuation correction images. No additional hypermetabolic pulmonary foci are identified. ABDOMEN AND PELVIS: There is a physiologic distribution of activity within the liver, spleen, adrenal glands, gastrointestinal and urinary tracts. Hypermetabolic left iliac chain lymph node measuring 2.7 x 1.6 cm on image 226 series 2 previously measured 1.2 x 2.3 cm on study dated 01/13/2018 and is hypermetabolic with SUV max of 9.3. The previously described enlarged right inguinal lymph node now measures 1.6 x 2.4 cm, previously 1.4 x 2.1 cm and is hypermetabolic, SUV max of 5.5. No additional hypermetabolic adenopathy identified. MUSCULOSKELETAL SYSTEM AND EXTREMITIES: There is a physiologic distribution of activity within the bone marrow, with no hypermetabolic foci. There is a 1.6 cm focus of hypermetabolic activity, SUV max of 17 within the right upper extremity seen on image 1 which is partially imaged without CT correlate, possibly vascular pooling of the tracer or uptake within a lymph node. ADDITIONAL CT FINDINGS: Mildly loculated moderate-sized right pleural effusion has increased in size in the interval. Trace left pleural effusion has slightly decreased from comparison. Enlarged heart with coronary arterial calcifications. Right internal jugular central venous catheter terminates within the right atrium. Pleural thickening with pleural calcifications again noted about the left hemithorax. Scattered calcified granulomata. Mild bilateral bronchial wall thickening. Interstitial coarsening with groundglass opacities noted bilaterally suggesting atelectasis/scarring. Multiple scattered radiopaque foreign bodies are again noted about the left chest wall, left abdominal wall, spleen and upper abdomen. Mild splenomegaly. Colonic diverticulosis without diverticulitis. Calcification of the aorta. Perinephric stranding about the right kidney. Calcifications about the central prostate. Partially decompressed bladder. Unremarkable appendix. Soft tissues are unremarkable. Bones appear intact. IMPRESSION: 1. Hypermetabolic mediastinal, left iliac chain and right inguinal lymph nodes with increased size of the lymph nodes from comparison studies on 01/13/2018 suggest recurrent lymphoma. 2. Postoperative changes about the left lower lobe with pulmonary nodule at the suture line again seen demonstrating mildly hypermetabolic activity. This is concerning for metastatic disease. 3. Moderate-sized mildly loculated right pleural effusion has increased in size from comparison. 4. Focus of hypermetabolic activity about the medial right upper arm without correlate on the CT images is partially imaged, possibly reflecting vascular activity or soft tissue lesion such as a lymph node. Correlate with clinical exam. 5. Additional incidental findings as above. The above report was generated using voice recognition software. It may contain grammatical, syntax or spelling errors. Dictated: 02/22/2018 10:27 AM Transcribed: 02/22/2018 11:17 AM [email or web address] Electronically signed by: Hero Damon M.D. 02/22/2018 12:35 PM Dictated Date/Time: 02/22/2018 10:27 AM
== END | disposition home or self-care (01) ==
LOC: C.PET 07:38
PROVIDERS: ATTEND Internal Medicine Hematology & Oncology
DX: C85.90 Non-Hodgkin lymphoma, unspecified, unspecified site (principal)